=== PATIENT | female | born 2000 | race African-American/Black ===

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

== ENCOUNTER 2020-01-11 13:50 | Inpatient (IN) | payer MEDICAID, OTHER ==
[2020-01-11] VITALS (31 sets, daily range): BP systolic 81–114; BP diastolic 31–70
[~2020-01-11] VITALS: Ht 162.6 cm; Wt 52.8 kg
[2020-01-11] MEDS ORDERED: ETOMIDATE (2MG/ML) 20ML VIAL IV ONE ×2 (13:56→14:00)
[2020-01-11] MEDS ORDERED: MIDAZOLAM DRIP 50 mg/50mL 50 ML IV ONE (13:56)
[2020-01-11] MEDS ORDERED: SUCCINYLCHOLINE CHLORIDE 20 MG/ML 10ML VIAL IV ONE ×2 (13:56→14:00)
[2020-01-11] MEDS: MIDAZOLAM DRIP 50 mg/50mL 50 ML IV SCH ×2 (14:14→21:05)
[2020-01-11] MEDS ORDERED: SODIUM CHLORIDE 0.9% 2,000 ML IV ONE ×2 (14:15→15:45)
[2020-01-11] MEDS ORDERED: SODIUM CHLORIDE 0.9% 1,000 ML IV ONE ×2 (14:15→19:45)
[2020-01-11 14:19] LABS: White Blood Cell 15.7 10^3/uL (4.4-10.8)
[2020-01-11] MEDS ORDERED: SODIUM CHLORIDE 0.9% 1,000 ML IV SCH ×8 (14:19→20:44)
[2020-01-11] MEDS ORDERED: InsuLIN R (HUMAN) 100 UNITS in SODIUM CHL 0.9% 99 ML IV SCH ×3 (14:19→16:00)
[2020-01-11 14:21] LABS: Hematocrit 49.5 % (36.0-46.0); Mean Corpuscular Hemoglobin 31.8 pg (28.0-32.0); Mean Corpuscular Hgb Conc. 28.2 g/dL (32.0-36.0); Mean Corpuscular Volume 112.7 fL (80.0-100.0); Platelet Count (auto) 317 10^3/uL (140-450); Red Blood Cells 4.39 10^6/uL (4.0-5.20); Red Cell Distribution Width 16.5 % (11.8-14.3)
[2020-01-11 14:23] LABS: Band Neutrophils % (manual) 0; Basophils % (manual) 0 (0.0-2.0); Blast Cells 0; Eosinophils % (manual) 0 (0-7); Metamyelocytes % 0; Myelocytes % 0; Promyelocytes % 0; Reactive Lymphocytes 0
[2020-01-11 14:23] LABS: Urine WBC None Seen /hpf (0 - 5)
[2020-01-11 14:28] LABS: Urine Bacteria NONE SEEN /hpf (None Seen); Urine Blood Negative /uL (Negative); Urine Mucus FEW (None Seen); Urine Specific Gravity 1.019 (1.001-1.035)
[2020-01-11] MEDS ORDERED: DEXTROSE (50%) 50ML SYRG IV PRN ×2 (14:30→14:45)
[2020-01-11 14:39] LABS: Lymphocytes % (manual) 16 (10.0-50.0); Monocytes % (manual) 1 (0-12)
[2020-01-11 14:45] LABS: Albumin 3.4 g/dL (3.4-5.0); BUN/Creatinine Ratio 10.2; Calcium 7.8 mg/dL (8.5-10.1); Lactic Acid w/Reflex 3.1 mmol/L (0.4-2.0)
[2020-01-11] MEDS ORDERED: MORPHINE SULF INJ 2 MG/ML SYRINGE 1ML IV PRN (14:45)
[2020-01-11] MEDS ORDERED: INSULIN LANTUS (GLARGINE) 1 /0.01ml (100units/ml) SC ONE (14:45)
[2020-01-11] MEDS ORDERED: LACTATED RINGER'S 2,000 ML IV ONE (14:45)
[2020-01-11] MEDS ORDERED: NITROGLYCERIN 0.4 MG SL TAB SL PRN ×2 (14:45→15:00)
[2020-01-11 14:53] LABS: Bilirubin, Total 0.6 mg/dL (0.2-1.0); Total Protein 7.5 g/dL (6.4-8.2)
[2020-01-11] MEDS ORDERED: ACCU-CHEK COMFORT CURVE STRIP VI SCH (15:00)
[2020-01-11] MEDS ORDERED: LORazepam 0.5 MG TAB PO PRN (15:00)
[2020-01-11] MEDS ORDERED: ONDANSETRON HCL 4 MG/2 ML VIAL IV PRN (15:00)
[2020-01-11] MEDS ORDERED: levoFLOXacin 750MG 150 ML IV SCH (15:14)
[2020-01-11] MEDS ORDERED: NOREPINEPHRINE 8 MG/250ML KIT 250 ML IV ONE (15:42)
[2020-01-11] MEDS ORDERED: CEFTRIAXONE SODIUM 2 GM in D5W 5% 50 ML IV ONE (15:45)
[2020-01-11] MEDS ORDERED: SOD CHL 0.9%/ KCL 20MEQ 1,000 ML IV SCH (15:45)
[2020-01-11] MEDS ORDERED: PROPOFOL 100 ML IV ONE (15:53)
[2020-01-11] MEDS: ACCU-CHEK COMFORT CURVE STRIP VI SCH ×6 (15:54→22:30)
[2020-01-11] MEDS: NOREPINEPHRINE 8 MG/250ML KIT 250 ML IV SCH (15:54)
[2020-01-11] MEDS ORDERED: SODIUM BICARBONATE 8.4 % INJ 50ML VIAL IV ONE ×2 (16:00→19:45)
[2020-01-11] MEDS: PROPOFOL 100 ML IV SCH (16:34)
--- NOTE | 2020-01-11 16:45 | NUR ---
RECEIVED PATIENT Received patient into room 104, Patient sedated on Versed at 15mg and Diprivan at 5mcg. Patient has positive gag/cough reflex, pupils reactive to light, does not follow commands and does not withdrawal to pain. Sinus tachycardia in the high 130's on bedside monitor, pulses palpable on upper/lower extremities with no edema observed. NG tube checked and verified via air bolus: clamped. Abdomen soft, non tender and non distended with hernia to the umbilicus area. Last bowel movement unknown. Dietz catheter draining to gravity clear yellow urine. IV to the right wrist 22G and right IJ(TLC): good blood return and flushes easily infusing Insulin GTT at 6uits AND LR open wide as well as NS open wide. LOTS of medication from earlier in ER not given to patient. Skin intact. Will continue plan of care and call light within reach and bed at lowest position.
[2020-01-11] MEDS: SODIUM BICARBONATE 50ML VIAL 50 ML in D5W/SOD CHL 0.45% 1,000 ML IV SCH (17:13)
--- NOTE | 2020-01-11 17:50 | NUR ---
WOUND CARE NOTE: Wound care in to see patient per wound care request regarding Right inner wrist wound that are noted present on admission. Patient is 19 years old female with admitting diagnosis of Acute Hypoxemic Resp Failure, Septic Shock, Hypovolemic Shock, DKA. Patient is resting in ICU bed in Rm. 104. Patient is intubated, sedated and mechanically ventilated. Patient appears to be in no pain using [place] Faces Pain Scale. Noted patient's proximal Rt wrist has 2.8x2cm scabbed wound and open at wound edges. Wound is 80% covered with black scab, 20% red at edges, minimal serosanguineous drainage noted, no odor noted. Cleansed Rt. wrist wound with NS, patted dry with gauze, applied Thera honey gel and covered with Opti foam gentle dressing. Photograph of wound are taken for reference. No pressure injury noted. RECOMMENDATION: BID/PRN cleaning and application of Barrier cream to sacral/buttocks as preventative, EOD/PRN dressing change to Rt. wrist wound per MD order, frequent turning and repositioning schedule as condition permits, redistribute pressure points with pillows,continue monitoring by wound care while patient is mechanically ventilated. Addendum: 01/11/20 at 1816 by Claudia Garcia RN Amended: Links added.
--- NOTE | 2020-01-11 19:30 | NUR ---
HEART RATE 150 AND CLIMBING. SBP STABLE. SINUS TACHYCARDIA.
[2020-01-11] MEDS: METOPROLOL TARTRATE 1MG/1ML-5ML VIAL IV PRN (19:45)
[2020-01-11] MEDS ORDERED: SODIUM BICARBONATE 50ML VIAL 150 ML in D5W/SOD CHL 0.45% 1,000 ML IV SCH (19:45)
[2020-01-11] MEDS ORDERED: MIDAZOLAM HCL 5 MG/ML-1ML VIAL ONE (19:45)
--- NOTE | 2020-01-11 19:45 | NUR ---
CALLED DR HERNANDEZ IN ER. ORDERS RECEIVED. REVIEWED THE IVF. TEMP IS INCREASING. NOW 101.7 RECTALLY. HE RECEIVED THE ABG RESULTS JUST RESULTED. NOW: 3 AMPS OF NA BICARB IN ONE LITER AT 100CC/HR. BICARB WAS IN THE 5 RANGE. GIVING ONE LITER BOLUS OF NS TO THEN HAVE A TOTAL OF 5 SINCE ADMISSION. METOPROLOL GIVEN. ACCUCHECK DECREASING. SCALE RATE IS STILL 6 UNITS PER HOUR. NOT OVER BREATHING THE VENTILATOR.
--- NOTE | 2020-01-11 20:00 | NUR ---
ICE BAGS TO BACK OF NECK AND AXILLA. HEART RATE 148. LITER BOLUS ON PRESSURE BAG THROUGH CENTRAL LINE. BICARB DRIP 3 AMPS IN D5 1/2 AT 100CC/HR
[2020-01-11 20:09] LABS: BUN/Creatinine Ratio 12.6
[2020-01-11 20:09] LABS: Magnesium 2.1 mg/dL (1.6-2.6); Phosphorus 3.8 mg/dL (2.5-4.90)
[2020-01-11] MEDS ORDERED: VANCOMYCIN 1GM/250ML 250 ML IV ONE (20:15)
[2020-01-11] MEDS ORDERED: VANCOMYCIN PER PHARMACY 0 MG IV SCH (20:15)
[2020-01-11 20:16] LABS: Calcium 5.9 mg/dL (8.5-10.1)
--- NOTE | 2020-01-11 20:30 | NUR ---
SPOKE WITH DR SHAIKH. TYLENOL ORDER OBTAINED
--- NOTE | 2020-01-11 21:00 | NUR ---
NOTED NEW ANTIBIOTIC ORDERS FOR ONE TIME ZOSYN AND VANCOMYCIN
[2020-01-11] MEDS ORDERED: MAGNESIUM SULFATE 1GM/100ML 200 ML IV ONE (21:02)
[2020-01-11] MEDS: ACETAMINOPHEN 500 MG TAB PO PRN (21:04)
[2020-01-11] MEDS: MAGNESIUM SULFATE 1GM/100ML 100 ML IV SCH ×2 (21:06→22:00)
[2020-01-11] MEDS ORDERED: PIPERACILLIN-TAZO 4.5GM 100 ML IV ONE (21:30)
--- NOTE | 2020-01-11 22:00 | NUR ---
TYLENOL HAS NOT BROUGHT DOWN THE TEMPERATURE YET. 5 ICE BAGS: AXILLA, GROIN AND BACK OF NECK. SHEET OFF PATIENT. INCREASED THE PROPOFOL BECAUSE OF HER ARMS COMING UP BY THE ETT. FIO2 WAS DECREASED FROM 50 TO 40% AT 1929. O2 SAT HAS ALWAYS BEEN 100%. SBP STABLE. RARELY BREATHES ABOVE VENTILATOR. GOOD URINE OUTPUT. ONE TIME DOSES OF ZOSYN 4.5 AND VANCOMYCIN BEING GIVEN. MAGNESIUM REPLACEMENT STILL GOING. NO EDEMA. GUPPY BREATHING I NOTED AT 1929 HAS RESOLVED. SCDS PLACED. ONE PERIPHERAL IV RIGHT WRIST AREA.
--- NOTE | 2020-01-11 23:00 | NUR ---
REVIEWED [address] SHAIKH. NEW IV SOLUTION ORDERED WITH INCREASED KCL
[2020-01-12] VITALS (103 sets, daily range): BP systolic 95–128; BP diastolic 24–85
[2020-01-12] MEDS ORDERED: SOD CHL 0.45% 1,000 ML IV SCH
--- NOTE | 2020-01-12 | NUR ---
BMP SENT. SINUS TACHY 138. NO ECTOPY. BEGINNING TO MOVE A LOT. INCREASED THE PROPOFOL. TEMP 101.3. LUNGS CLEAR. NO NGT RESIDUAL. OWENS DRAINING CLEAR YELLOW LIQUID IN ADEQUATE AMOUNTS. EDWARDS. OPENS EYES A LITTLE. MITTENS ON BILATERALLY.
[2020-01-12] MEDS ORDERED: POTASSIUM CHL 20MEQ/100ML 200 ML IV ONE ×2 (00:10→01:20)
[2020-01-12] MEDS: ACCU-CHEK COMFORT CURVE STRIP VI SCH ×14 (00:21→23:55)
[2020-01-12] MEDS: MIDAZOLAM DRIP 50 mg/50mL 50 ML IV SCH ×4 (00:41→23:55)
[2020-01-12 01:05] LABS: BUN/Creatinine Ratio 11.8; Calcium 6.4 mg/dL (8.5-10.1)
[2020-01-12 01:12] LABS: Potassium 2.3 mmol/L (3.5-5.1)
[2020-01-12] MEDS: POTASSIUM CHL 20MEQ/100ML 100 ML IV SCH ×6 (01:29→21:59)
--- NOTE | 2020-01-12 02:00 | NUR ---
HAS BEEN RESTLESS. INCREASED THE PROPOFOL GRADUALLY. SINUS TACHYCARDIA IMPROVING. TEMP IMPROVING. ICE BAGS STILL ON PATIENT. LUNGS CLEAR. URINE PER OWENS TO DOWN DRAIN BAG. CLEAR, ADEQUATE AMOUNT IN OWENS. IV SITE SHOWS NO REDNESS OR SWELLING. ABDOMEN SOFT. NEXT BMP AT 0400. NO ECTOPY.
[2020-01-12] MEDS: METOPROLOL TARTRATE 1MG/1ML-5ML VIAL IV PRN (02:40)
--- NOTE | 2020-01-12 02:41 | NUR ---
prn metoprolol given
--- NOTE | 2020-01-12 03:00 | NUR ---
accucheck 157 insulin drip 1.5 units/hr
--- NOTE | 2020-01-12 03:40 | NUR ---
am labs drawn
--- NOTE | 2020-01-12 03:58 | NUR ---
PATIENT IS IMPROVING. HR 126. SINUS TACHYCARDIA. SBP STABLE. REMAINS OFF LEVOPHED. TEMP 100.6 WITH JUST ICE BAGS. LUNGS CLEAR. RIDING THE VENTILATOR MOST OF THE TIME. O2 SAT ALWAYS 100%. FIO2 30%. BOWEL SOUND QUIET. RIGHT NARE NGT CLAMPED. RESIDUAL ONLY 10CC OF COFFEE GROUND COLOR. ALL PULSES PALPABLE. PUPILS 2 AND SLUGGISH. EDWARDS OCCASIONALLY. BILATERAL MITTENS ON.
[2020-01-12 04:11] LABS: Basophils # (auto) 0.1 10 ^3/uL (0-0.2); Basophils % (auto) 0.8 % (0.0-2.0); Eosinophils # (auto) 0 10 ^3/uL (0-0.8); Eosinophils % (auto) 0.2 % (0.0-7.0); Hematocrit 33.5 % (36.0-46.0); Hemoglobin 11.8 g/dL (12.2-16.2); Lymphocytes # (auto) 1.1 10 ^3/uL (0.4-5.4); Lymphocytes % (auto) 13.2 % (10.0-50.0); Mean Corpuscular Hemoglobin 32.6 pg (28.0-32.0); Mean Corpuscular Hgb Conc. 35.2 g/dL (32.0-36.0); Mean Corpuscular Volume 92.8 fL (80.0-100.0); Monocytes # (auto) 0.6 10 ^3/uL (0-1.3); Monocytes % (auto) 7.2 % (0.0-12.0); Neutrophils # (auto) 6.6 10 ^3/uL (1.6-8.6); Neutrophils % (auto) 78.6 % (37.0-80.0); Nucleated Red Blood Cells % 0.1 %; Platelet Count (auto) 166 10^3/uL (140-450); Red Blood Cells 3.61 10^6/uL (4.0-5.20); White Blood Cell 8.4 10^3/uL (4.4-10.8)
[2020-01-12 04:28] LABS: Albumin 2.5 g/dL (3.4-5.0); Calcium 6.4 mg/dL (8.5-10.1); INR 1.18 (0.9-1.15); Magnesium 2.4 mg/dL (1.6-2.6); Partial Thromboplastin Time 21.4 sec (23.64-32.05)
[2020-01-12 04:37] LABS: % Iron Saturation 5.7 % (15-50)
[2020-01-12 04:45] LABS: BUN/Creatinine Ratio 9.9; Bilirubin, Total 0.3 mg/dL (0.2-1.0); CRP High Sensitivity 1.09 mg/dL (< 0.3); Total Protein 5.4 g/dL (6.4-8.2)
[2020-01-12 04:54] LABS: Potassium 2.8 mmol/L (3.5-5.1)
[2020-01-12] MEDS: SODIUM BICARBONATE 50ML VIAL 50 ML in D5W/SOD CHL 0.45% 1,000 ML IV SCH ×2 (05:00→12:56)
[2020-01-12] MEDS: PROPOFOL 100 ML IV SCH ×2 (05:00→19:44)
[2020-01-12] MEDS: PIPERACILLIN-TAZOB 3.375GM 100 ML IV SCH ×4 (05:43→23:49)
--- NOTE | 2020-01-12 06:00 | NUR ---
12 hour noc shift accuchecks 1929 380 6 units 2100 242 3 units 2230 238 2 units 2400 263 3 units 0130 197 2 units 0300 157 1.5 umits 0430 175 1.5 units 0600 144 1 unit
--- NOTE | 2020-01-12 06:43 | NUR ---
call placed to hospitalist to report potassium of 2.8
--- NOTE | 2020-01-12 06:46 | NUR ---
order received for potassium iv rider 40 meq
[2020-01-12] MEDS ORDERED: POTASSIUM CHLORIDE 40 MEQ in SOD CHL 0.45% 1,000 ML IV SCH ×2 (07:30→12:45)
[2020-01-12] MEDS: DOCUSATE SOD 100 MG CAP PO SCH (10:00)
[2020-01-12] MEDS ORDERED: INSULIN LANTUS (GLARGINE) 1 /0.01ml (100units/ml) SC SCH ×2 (10:00→22:00)
--- NOTE | 2020-01-12 10:05 | NUR ---
MD Dr. Hicks at bedside updated on patient condition with new orders per MD to wake patient up and place on CPAP trial for 30minutes if she does well to extubate, NO need for ABG. RT Angela aware. aware that patients POTASSIUM level this AM is 2.8 and covering once Potassium level is 3.5 or above will attempt to CPAP. MD agreed.
[2020-01-12] MEDS: PANTOPRAZOLE 40 MG/10 ML VIAL INJ IV SCH (10:41)
[2020-01-12] MEDS: ENOXAPARIN SOD 40 MG/0.4 ML SYRINGE SC SCH (10:42)
--- NOTE | 2020-01-12 10:54 | NUR ---
MD Dr. Gregorio hernadez, awating for to call back.
--- NOTE | 2020-01-12 11:48 | NUR ---
MD Dr. Vazquez called this RN back and received new orders: this RN to input into system. Turn off insulin GTT and ACCU-CHECKS Q 1 X 3hours then ACCU-CHECKS Q 4 on low dose sliding scale.
[2020-01-12] MEDS: ACETAMINOPHEN 500 MG TAB PO PRN (12:29)
[2020-01-12 12:46] LABS: BUN/Creatinine Ratio 6.5; Calcium 6.8 mg/dL (8.5-10.1); Magnesium 2.3 mg/dL (1.6-2.6)
[2020-01-12 12:49] LABS: Potassium 2.7 mmol/L (3.5-5.1)
--- NOTE | 2020-01-12 12:50 | NUR ---
CRITICAL LAB Received critical from Cindy MARTINEZ for a potassium of 2.7, Called and spoke to Dr. Vazquez with new orders for 50meq of potassium PO, EKG and redraw at 1600.
--- NOTE | 2020-01-12 12:50 | NUR ---
Nutrition Assessment Notes Please refer to link for full assessment notes. Est energy needs: 4643-8990 kcals (25-30 kcal/kgBW) Est protein needs: 63-78 gms/day (1.2-1.5 gm/kgBW) d/t respiratory distress Will continue to monitor and reassess prn. Addendum: 01/12/20 at [address] Amended: Links added.
[2020-01-12] MEDS ORDERED: ACETAMINOPHEN 500 MG TAB PO PRN (13:00)
[2020-01-12] MEDS ORDERED: POTASSIUM EFFERVESENT TAB 25 MEQ PO ONE (13:30)
--- NOTE | 2020-01-12 13:30 | NUR ---
BLOOD GLUCOSE Blood glucose 137.
[2020-01-12] MEDS ORDERED: ALBUTEROL SULF HFA 90MCG INH 200DOSE IN SCH (14:00)
--- NOTE | 2020-01-12 14:49 | NUR ---
BLOOD GLUCOSE Blood glucose 134.
[2020-01-12] MEDS: NOREPINEPHRINE 8 MG/250ML KIT 250 ML IV SCH (15:42)
[2020-01-12] MEDS ORDERED: DEXTROSE (50%) 50ML SYRG IV PRN (15:45)
[2020-01-12] MEDS: InsuLIN REG 1unit/0.01ml Soln (100units/ml) SC SCH ×2 (16:00→20:00)
[2020-01-12] MEDS: POTASSIUM CHLORIDE 40 MEQ in SOD CHL 0.45% 1,000 ML IV SCH (16:10)
--- NOTE | 2020-01-12 18:08 | NUR ---
RT NOTE RECEIVED PT INTUBATED AND ON VENT V19 ON STATED SETTINGS. VENT IS PLUGGED TO RED OUTLET. ALARMS ARE ON AND AUDIBLE AT NURSES STATION. AMBU BAG AT BEDSIDE AND CONNECTED TO O2 SOURCE. 7.5 ETT IS SECURED WITH ANCHORFAST AT 23 CM AT THE [facility]. BILATERAL BS ARE CTA. PT WAS SUCTIONED FOR SMALL SCANT CLEAR RETURN FROM ETT AND SMALL WHITE RETURN ORALLY. CONT ORDERED. POX 100% Addendum: 01/12/20 at 1844 by Shital Poon RT Amended: Links added.
--- NOTE | 2020-01-12 19:15 | NUR ---
HOSPITALIST Paged hospitalist for potassium of 3.1., awaiting for call back.
--- NOTE | 2020-01-12 19:30 | NUR ---
PAGED HOSPITALIST REGARDING LOW K AND POSITIVE BC
--- NOTE | 2020-01-12 19:40 | NUR ---
HOSPITALIST RETURNED CALL RECEIVED NEW ORDERS FOR LOW K
[2020-01-12] MEDS ORDERED: ACETAMINOPHEN 325 MG TAB PO PRN (19:45)
--- NOTE | 2020-01-12 20:00 | NUR ---
OPENING SHIFT RECEIVED REPORT FROM DAY SHIFT RN. ASSUMED CARE OF PATIENT. PATIENT INTUBATED AND SEDATED ON VENTILATOR, NO PAIN OR DISTRESS NOTED. 02 SAT - 100%. POSITIVE COUGH AND GAG. RIJ TLC. OWENS HUNG TO GRAVITY. SEDATION: VERSED AND PROPOFOL BED IN LOWEST POSITION, SIDE RAILS UP X2. WILL CONTINUE TO MONITOR.
--- NOTE | 2020-01-12 20:39 | NUR ---
RT NOTE ROUTINE VENT CHECK DONE. PT INTUBATED AND ON VENT V19 ON STATED SETTINGS. VENT IS PLUGGED TO RED OUTLET. ALARMS ARE ON AND AUDIBLE AT NURSES STATION. AMBU BAG AT BEDSIDE AND CONNECTED TO O2 SOURCE. 7.5 ETT IS SECURED WITH ANCHORFAST AT 23 CM AT THE [facility]. CONT ORDERED. PT TEMP 99.9,POX 100% Addendum: 01/12/20 at 2152 by Shital Poon RT Amended: Links added.
[2020-01-12] MEDS ORDERED: ALBUTEROL SULF 2.5 MG/0.5ML(0.5%) NEB SOLN NEB SCH (22:00)
[2020-01-12] MEDS ORDERED: VANCOMYCIN 1GM/250ML 250 ML IV SCH (22:00)
--- NOTE | 2020-01-12 22:23 | NUR ---
RT NOTE ROUTINE VENT CHECK DONE. PT INTUBATED AND ON VENT V19 ON STATED SETTINGS. VENT IS PLUGGED TO RED OUTLET. ALARMS ARE ON AND AUDIBLE AT NURSES STATION. AMBU BAG AT BEDSIDE AND CONNECTED TO O2 SOURCE. 7.5 ETT IS SECURED WITH ANCHORFAST AT 23 CM AT THE [facility]. CONT ORDERED. PT TEMP 99.0,POX 100% Addendum: 01/12/20 at 2314 by Shital Poon RT Amended: Links added.
[2020-01-13] VITALS (82 sets, daily range): BP systolic 94–146; BP diastolic 62–90
--- NOTE | 2020-01-13 00:16 | NUR ---
RT NOTE ROUTINE VENT CHECK DONE. PT INTUBATED AND ON VENT V19 ON STATED SETTINGS. VENT IS PLUGGED TO RED OUTLET. ALARMS ARE ON AND AUDIBLE AT NURSES STATION. AMBU BAG AT BEDSIDE AND CONNECTED TO O2 SOURCE. 7.5 ETT IS SECURED WITH ANCHORFAST AT 23 CM AT THE [facility]. PT WAS SUCTIONED FOR SCANT RETURN. CONT ORDERED. PT TEMP 99.0,POX 100% Addendum: 01/13/20 at 0130 by Shital Poon RT Amended: Links added.
[2020-01-13] MEDS: InsuLIN REG 1unit/0.01ml Soln (100units/ml) SC SCH ×5 (00:17→18:00)
[2020-01-13] MEDS: POTASSIUM CHLORIDE 40 MEQ in SOD CHL 0.45% 1,000 ML IV SCH ×3 (02:07→22:45)
--- NOTE | 2020-01-13 02:23 | NUR ---
RT NOTE ROUTINE VENT CHECK DONE. PT INTUBATED AND ON VENT V19 ON STATED SETTINGS. VENT IS PLUGGED TO RED OUTLET. ALARMS ARE ON AND AUDIBLE AT NURSES STATION. AMBU BAG AT BEDSIDE AND CONNECTED TO O2 SOURCE. 7.5 ETT IS SECURED WITH ANCHORFAST AT 23 CM AT THE [facility]. PT WAS SUCTIONED FOR SCANT RETURN. CONT ORDERED. PT TEMP 99.3,POX 100% Addendum: 01/13/20 at 0237 by Shital Poon RT Amended: Links added.
--- NOTE | 2020-01-13 03:30 | NUR ---
PT RECEIVED BATH AND LINEN CHANGE
[2020-01-13 03:58] LABS: Basophils # (auto) 0.1 10 ^3/uL (0-0.2); Basophils % (auto) 1.4 % (0.0-2.0); Eosinophils # (auto) 0.1 10 ^3/uL (0-0.8); Eosinophils % (auto) 2.1 % (0.0-7.0); Hematocrit 28.1 % (36.0-46.0); Hemoglobin 9.9 g/dL (12.2-16.2); Lymphocytes # (auto) 1.4 10 ^3/uL (0.4-5.4); Lymphocytes % (auto) 24.3 % (10.0-50.0); Mean Corpuscular Hemoglobin 32.7 pg (28.0-32.0); Mean Corpuscular Hgb Conc. 35.2 g/dL (32.0-36.0); Monocytes # (auto) 0.4 10 ^3/uL (0-1.3); Monocytes % (auto) 7.6 % (0.0-12.0); Neutrophils # (auto) 3.8 10 ^3/uL (1.6-8.6); Neutrophils % (auto) 64.6 % (37.0-80.0); Nucleated Red Blood Cells % 0.1 %; Platelet Count (auto) 118 10^3/uL (140-450); Red Blood Cells 3.02 10^6/uL (4.0-5.20); Red Cell Distribution Width 15.3 % (11.8-14.3); White Blood Cell 5.8 10^3/uL (4.4-10.8)
--- NOTE | 2020-01-13 04:03 | NUR ---
RT NOTE ROUTINE VENT CHECK DONE. PT INTUBATED AND ON VENT V19 ON STATED SETTINGS. VENT IS PLUGGED TO RED OUTLET. ALARMS ARE ON AND AUDIBLE AT NURSES STATION. AMBU BAG AT BEDSIDE AND CONNECTED TO O2 SOURCE. 7.5 ETT IS SECURED WITH ANCHORFAST AT 23 CM AT THE ORAL LEFT. PT WAS SUCTIONED FOR SCANT RETURN. HME AND INLINE SUCTION CHANGED WITHOUT INCIDENT. CONT ORDERED. PT TEMP 98.2, POX 100% Addendum: 01/13/20 at 0437 by Shital Poon RT Amended: Links added.
[2020-01-13] MEDS: ACCU-CHEK COMFORT CURVE STRIP VI SCH ×4 (04:09→18:00)
[2020-01-13 04:18] LABS: Albumin 2.2 g/dL (3.4-5.0); Calcium 7.2 mg/dL (8.5-10.1); Magnesium 2.1 mg/dL (1.6-2.6)
[2020-01-13 04:33] LABS: Bilirubin, Total 0.4 mg/dL (0.2-1.0)
[2020-01-13 04:48] LABS: Potassium 2.5 mmol/L (3.5-5.1)
[2020-01-13] MEDS: PROPOFOL 100 ML IV SCH (05:02)
[2020-01-13] MEDS: POTASSIUM CHL 20MEQ/100ML 100 ML IV SCH ×2 (05:40→08:03)
[2020-01-13] MEDS: PIPERACILLIN-TAZOB 3.375GM 100 ML IV SCH ×3 (05:41→18:00)
[2020-01-13] MEDS: MIDAZOLAM DRIP 50 mg/50mL 50 ML IV SCH (06:15)
[2020-01-13 06:42] LABS: BUN/Creatinine Ratio 4.8
--- NOTE | 2020-01-13 07:15 | NUR ---
BLOOD PRESSURE Blood pressure not taken at this time secondary to RT FRANK at bedside to obtain ABG.
--- NOTE | 2020-01-13 07:34 | NUR ---
AFSHAN WILLIAMSON REGARDING LAB VALUES LOW NA AND K Addendum: 01/13/20 at 0743 by ASHLEIGH SMALLWOOD RN RN WRONG PT
--- NOTE | 2020-01-13 07:50 | NUR ---
Received phone call from Dr. Hicks stating " would like to CPAP patient this AM." Informed MD that patients POTASSIUM level is 2.5 at this time. states " Cover POTASSIUM she does not need to be ventilated for that."
--- NOTE | 2020-01-13 08:35 | NUR ---
ECHO pharmacy technician inpatient at bedside to obtain study.
[2020-01-13] MEDS: DOCUSATE SOD 100 MG CAP PO SCH (09:48)
[2020-01-13] MEDS: PANTOPRAZOLE 40 MG/10 ML VIAL INJ IV SCH (09:52)
[2020-01-13] MEDS: ENOXAPARIN SOD 40 MG/0.4 ML SYRINGE SC SCH (09:52)
[2020-01-13] MEDS ORDERED: CHOLECALCIFEROL (VITD3) 1,000IU=25mCg TAB PO SCH (10:00)
[2020-01-13] MEDS ORDERED: POTASSIUM EFFERVESENT TAB 25 MEQ GT ONE (10:00)
[2020-01-13] MEDS ORDERED: AZITHROMYCIN 500 MG TAB PO SCH (10:00)
[2020-01-13] MEDS ORDERED: ASCORBIC ACID 1,000 MG TAB PO SCH (10:00)
[2020-01-13] MEDS ORDERED: ZINC SULFATE 220mg CAP or TAB PO SCH (10:00)
--- NOTE | 2020-01-13 10:00 | NUR ---
Received phone call from Dr. Vazquez regarding POTASSIUM level: received new orders, this RN to input into system.
[2020-01-13] MEDS ORDERED: PANTOPRAZOLE 40 MG/10 ML VIAL INJ IV ONE (10:15)
--- NOTE | 2020-01-13 10:20 | NUR ---
ELIMINATION Patient had a moderate amount of loose dark brown stool. Edda- area clean with the assistance of CCT Nitza. Patient toelrated well. Will continue to monitor closely.
--- NOTE | 2020-01-13 10:20 | NUR ---
MD Dr. Hicks at bedside updated on patient condition with no new orders other than to CPAP patient once she is awake and following commands.
--- NOTE | 2020-01-13 11:15 | NUR ---
MD Dr. Vazquez at bedside updated on patient condition with no new orders.
[2020-01-13 11:56] LABS: Hepatitis B Surface Antibody Negative
--- NOTE | 2020-01-13 12:20 | NUR ---
ULTRASOUND installer technician at bedside to obtain study.
[2020-01-13 12:34] LABS: Hepatitis A Total Antibody Positive
[2020-01-13 13:06] LABS: Hepatitis B Core Total AB Negative; Hepatitis B Surface Antigen Negative (Negative); Hepatitis C Antibody Negative (Negative)
[2020-01-13] MEDS ORDERED: DEXTROSE (50%) 50ML SYRG IV PRN (14:00)
--- NOTE | 2020-01-13 14:20 | NUR ---
Patient extubated by RT Extubation order received by Dr. LEÓN, RT at bedside. Patient extubated with no problems, patient tolerated well. Patient placed on 40% cool mist mask. Sats prior to extubation 100%, following extubation 100%. Continue to monitor.
--- NOTE | 2020-01-13 14:20 | NUR ---
RESPIRATORY RT FRANK extubated patient per Dr. Hicks orders whom saw the patient on CPAP. MD stated " to just pull the ET tube."
--- NOTE | 2020-01-13 20:52 | NUR ---
pt transfered from icu bed 104 to tele room 292A transferred by bed on tele monitor with gina MARTINEZ at the site pt belongings with pt, pt on room air, ST 116
--- NOTE | 2020-01-13 21:15 | NUR ---
Telemetry transfer from ICU AVERY JOSE transferred to Telemetry unit after SBAR received. Assumed care of patient. Patient is awake and alert. No S/S of distress/SOB or pain. Patient oriented to primary RN, unit, room, bed, and unit policies regarding patient care and visiting hours. Patient now on continuous telemetry monitoring, tele box #68. Patient weighed by bedscale and encouraged to call if they need something. All questions and concerns addressed, patient verbalized understanding. Dietz intact, patent, draining to gravity and below level of bladder. Right IJ in place and patent. Bed locked in lowest position and bed rails up x2. Call light within reach.
--- NOTE | 2020-01-13 21:20 | NUR ---
BRIEF WRITER made me aware during patient exchange that 1400 ml of urine output was just emptied before transport to Tele floor. Will continue to monitor for any changes and note drainage.
[2020-01-13] MEDS ORDERED: INSULIN LANTUS (GLARGINE) 1 /0.01ml (100units/ml) SC SCH (22:00)
[2020-01-14] MEDS: ACCU-CHEK COMFORT CURVE STRIP VI SCH ×4 (01:50→17:36)
[2020-01-14] MEDS: InsuLIN REG 1unit/0.01ml Soln (100units/ml) SC SCH ×4 (01:51→17:49)
[2020-01-14] MEDS: PIPERACILLIN-TAZOB 3.375GM 100 ML IV SCH ×4 (01:51→17:48)
[2020-01-14 05:21] VITALS: BP 100/64
[2020-01-14 06:27] LABS: Albumin 2.5 g/dL (3.4-5.0); Calcium 8.1 mg/dL (8.5-10.1); Potassium 3.1 mmol/L (3.5-5.1)
[2020-01-14 06:45] LABS: Bilirubin, Total 0.5 mg/dL (0.2-1.0); Total Protein 5.9 g/dL (6.4-8.2)
--- NOTE | 2020-01-14 06:49 | NUR ---
3450ml of urine output for entire shift drained from Dietz. Will endorse care to day shift, RN
[2020-01-14 06:55] LABS: BUN/Creatinine Ratio 7.4
--- NOTE | 2020-01-14 07:52 | NUR ---
Opening Note Assumed pt care from NOC RN. Pt is a/ox4 with no s/s of distress or SOB. Pt is currently sitting upright in bed eating breakfast with mild c/o soreness to throat; encouraged pt to increase in warm fluids. Discussed POC with pt; pt verbalized understanding. Dietz is present, free of kinks and draining to gravity. Safety measures maintained with call light within reach, bed in lowest position and side rails up. Will continue to monitor for changes.
[2020-01-14] MEDS: PANTOPRAZOLE 40 MG/10 ML VIAL INJ IV SCH (08:57)
[2020-01-14] MEDS: ENOXAPARIN SOD 40 MG/0.4 ML SYRINGE SC SCH (08:57)
[2020-01-14] MEDS: DOCUSATE SOD 100 MG CAP PO SCH (09:00)
[2020-01-14 09:53] VITALS: BP 118/75
[2020-01-14] MEDS: POTASSIUM CHLORIDE 40 MEQ in SOD CHL 0.45% 1,000 ML IV SCH (11:25)
--- NOTE | 2020-01-14 12:06 | NUR ---
UA Sent for Drug Screen
[2020-01-14 12:35] LABS: Alcohol, Urine < 3.0 mg/dL (0-5); Amphetamine Screen, Urine NEGATIVE (NEGATIVE); Barbiturate Scree,Urine NEGATIVE (NEGATIVE); Benzodiazephine Screen, Urine POSITIVE (NEGATIVE); Cannabinoid Screen, Urine NEGATIVE (NEGATIVE); Cocaine Screen, Urine NEGATIVE (NEGATIVE); Opiate Scree,Urine NEGATIVE (NEGATIVE); Phencyclidine Screen, Urine NEGATIVE (NEGATIVE)
[2020-01-14 13:00] VITALS: BP 116/74
--- NOTE | 2020-01-14 13:42 | NUR ---
ambulation Pt able to ambulate to bedside commode without difficulty. Will continue to monitor.
--- NOTE | 2020-01-14 14:15 | NUR ---
Dr Vazquez at Bedside MD to see pt. MD requests that KRYSTAL and dahlia be d/c'ed. Will implement and continue to monitor.
[2020-01-14] MEDS ORDERED: POTASSIUM CHL 20 Meq TABLET PO ONE (15:00)
--- NOTE | 2020-01-14 15:11 | NUR ---
Dietz Catheter Removed Dietz removed. 1450mL drained from catheter. Pt instructed to call when need to void. Will continue to monitor. Addendum: 01/14/20 at 1849 by ADELA CADENA RN RN Pt has since voided since removal of catheter.
[2020-01-14] MEDS ORDERED: LINEZOLID 600MG/300ML 300 ML IV SCH (15:15)
[2020-01-14] MEDS ORDERED: IOHEXOL 350 MG/ML 100ML IJ ONE (16:23)
--- NOTE | 2020-01-14 16:36 | NUR ---
IV Insertion 22G to pt's L wrist inserted. 3 attempts made. Clean/sterile technique used. Pt tolerated insertion well. Will keep IJ in at this time for scheduled CT chest. Notified radiology staff.
[2020-01-14 16:52] VITALS: BP 119/75
--- NOTE | 2020-01-14 18:04 | NUR ---
Critical Results Dr Hernandez from radiology group notified me that pt's tested positive for small PE in pt's R lower lobe. Will page hospitalist with findings.
--- NOTE | 2020-01-14 18:06 | NUR ---
John CHÁVEZ with Critical Report Addendum: 01/14/20 at 1832 by ADELA CADENA RN RN Dr Didier hernadez back. aware and stated he would place orders on pt. Will implement.
--- NOTE | 2020-01-14 19:30 | NUR ---
Opening Shift Note Assumed care of patient. Patient is awake and alert. No S/S of distress/SOB or pain. Instructed on POC and to call for assist PRN, will continue to monitor for changes Q1hr and PRN. Bed locked in lowest position and bed rails up x2. Call light within reach.
--- NOTE | 2020-01-14 20:35 | NUR ---
Patient of unit to smoke Addendum: 01/14/20 at 2051 by SUZANNE RIVERO RN Wrong patient
[2020-01-14] MEDS: APIXABAN 5 MG TAB PO SCH (21:56)
[2020-01-14] MEDS: LINEZOLID 600MG/300ML 300 ML IV SCH (21:56)
[2020-01-14 22:00] VITALS: BP 104/69
[2020-01-14] MEDS: INSULIN LANTUS (GLARGINE) 1 /0.01ml (100units/ml) SC SCH (22:17)
--- NOTE | 2020-01-14 23:00 | NUR ---
IJ removal IJ DC'd with clean sterile technique, catheter fully intact. Pressure dressing applied to site. Patient tolerated well. Will continue to monitor for changes.
[2020-01-15] MEDS: POTASSIUM CHLORIDE 40 MEQ in SOD CHL 0.45% 1,000 ML IV SCH ×2 (00:15→12:52)
[2020-01-15] MEDS: ACCU-CHEK COMFORT CURVE STRIP VI SCH ×4 (01:43→17:23)
[2020-01-15] MEDS: PIPERACILLIN-TAZOB 3.375GM 100 ML IV SCH ×4 (01:43→17:28)
[2020-01-15] MEDS: InsuLIN REG 1unit/0.01ml Soln (100units/ml) SC SCH ×5 (01:45→22:11)
[2020-01-15 05:00] VITALS: BP 101/60
[2020-01-15 06:06] LABS: Basophils # (auto) 0 10 ^3/uL (0-0.2); Basophils % (auto) 0.9 % (0.0-2.0); Eosinophils # (auto) 0.1 10 ^3/uL (0-0.8); Eosinophils % (auto) 2.1 % (0.0-7.0); Hematocrit 30.8 % (36.0-46.0); Hemoglobin 10.6 g/dL (12.2-16.2); Lymphocytes # (auto) 1.9 10 ^3/uL (0.4-5.4); Lymphocytes % (auto) 36.3 % (10.0-50.0); Mean Corpuscular Hemoglobin 32.5 pg (28.0-32.0); Mean Corpuscular Hgb Conc. 34.3 g/dL (32.0-36.0); Mean Corpuscular Volume 94.7 fL (80.0-100.0); Monocytes # (auto) 0.4 10 ^3/uL (0-1.3); Monocytes % (auto) 8.3 % (0.0-12.0); Neutrophils # (auto) 2.7 10 ^3/uL (1.6-8.6); Neutrophils % (auto) 52.4 % (37.0-80.0); Nucleated Red Blood Cells % 0.1 %; Platelet Count (auto) 141 10^3/uL (140-450); Red Blood Cells 3.26 10^6/uL (4.0-5.20); Red Cell Distribution Width 15.2 % (11.8-14.3); White Blood Cell 5.2 10^3/uL (4.4-10.8)
[2020-01-15 06:23] LABS: Potassium 3.9 mmol/L (3.5-5.1)
[2020-01-15 06:34] LABS: Albumin 2.3 g/dL (3.4-5.0); BUN/Creatinine Ratio 15.9; Bilirubin, Total 0.5 mg/dL (0.2-1.0); Calcium 8.5 mg/dL (8.5-10.1); Magnesium 2.3 mg/dL (1.6-2.6); Total Protein 5.9 g/dL (6.4-8.2)
--- NOTE | 2020-01-15 07:28 | NUR ---
Opening Note Assumed pt care from NOC RN. Pt is a/ox4 with no s/s of distress or SOB. Pt is currently sitting upright in bed with no complaints at this time. Discussed POC with pt; pt verbalized understanding. Safety measures maintained with call light within reach, bed in lowest position and side rails up. Will continue to monitor for changes.
[2020-01-15 09:00] VITALS: BP 99/66
[2020-01-15] MEDS: PANTOPRAZOLE 40 MG/10 ML VIAL INJ IV SCH (09:07)
[2020-01-15] MEDS: APIXABAN 5 MG TAB PO SCH ×2 (09:07→20:55)
[2020-01-15] MEDS: DOCUSATE SOD 100 MG CAP PO SCH (09:07)
[2020-01-15] MEDS: LINEZOLID 600MG/300ML 300 ML IV SCH (09:07)
--- NOTE | 2020-01-15 11:46 | NUR ---
Wound Care Complete Dressing change to pt's R FA. Pt tolerated change well.
[2020-01-15 12:51] VITALS: BP 109/71
--- NOTE | 2020-01-15 14:08 | NUR ---
Dr Murphy at Bedside MD to see pt. New orders given. Will continue to monitor.
--- NOTE | 2020-01-15 15:03 | NUR ---
Nutrition Followup Notes Pt wt is 52.8 kg Pt was awake, weak, lethargic when rounded this morning. Pt is on a CCHO 60g diet, appetite is fair aeb 50% x2 PO intake per data support analyst. Educated pt on diet, importance of dietary compliance. She said she was not interested in taking classes, but was left with class schedule in case she changed her mind. Encouraged pt to eat more, educate herself and follow the appropriate dietary pattern. Will continue to monitor PO status, skin status, pertinent labs and weight trends. Will f/u in 3 to 5 days. Est energy needs: 8421-9101 kcals (25-30 kcal/kgBW) Est protein needs: 63-78 gms/day (1.2-1.5 gm/kgBW) d/t respiratory distress Will continue to monitor and reassess prn. LABS: GLUC 280 H, A1c 12.7 H, AST 254 H, ALT 275 H, TP 5.9 L, ALB 2.3 L GI: Last BM noted on 01/15/20 per data support analyst BS: 21 low risk, scab on wrist. Please refer to wound assessment report for full details. PES: Problem 1) Increased nutrient needs r/t pt with 0% PO intake aeb pt sedated, intubated on mechanical vent, NPO 2) Inadequate oral intake r/t dietary non-compliance aeb hyperglycemia, elev A1c, dyslipidemia, hypoproteinemia, hypoalbuminemia 3) Altered nutrition related lab values r/t current/chronic medical condition aeb hyperglycemia, elev A1c, dyslipidemia, hypoproteinemia, hypoalbuminemia, elev LFTs, iron deficiency Comments Will continue to closely monitor pertinent labs, PO intake and skin status prn. Will followup in 2-3 days 1) Continue to closely monitor pt NPO status (RESOLVED) 2) If pt remains NPO for the next 72 hours, consider EN nutrition support of Glucerna 1.2 @ 40ml/hr goal rate with current running propofol rate @ 12.669 ml/hr. If pt is off propofol, consider Glucerna 1.2 @ 50ml/hr goal rate. (RESOLVED) 3) Gradually advance pt to oral CCHO 45g diet when medically feasible and as tolerated 4) Refer pt to RD/CDE for nutrition education upon D/C 5) If albumin continues trending down consider Prostat 1 pkt BID 6) Continue current plan of care
[2020-01-15] MEDS: INSULIN LANTUS (GLARGINE) 1 /0.01ml (100units/ml) SC SCH (21:28)
[2020-01-15 22:07] VITALS: BP 121/72
[2020-01-16] MEDS: ACCU-CHEK COMFORT CURVE STRIP VI SCH ×5 (00:11→23:36)
[2020-01-16] MEDS: PIPERACILLIN-TAZOB 3.375GM 100 ML IV SCH ×5 (00:11→23:36)
[2020-01-16 05:00] VITALS: BP 108/61
[2020-01-16] MEDS: InsuLIN REG 1unit/0.01ml Soln (100units/ml) SC SCH ×4 (05:57→21:47)
--- NOTE | 2020-01-16 07:30 | NUR ---
Opening Shift Note RECEIVED REPORT FROM NOC RN. Assumed care of patient, awake and alert. No S/S of distress/SOB or pain. BED IN LOWEST, LOCKED POSITION WITH SIDERAILS UP x2 AND CALL LIGHT WITHIN REACH. Instructed on POC and to call for assist PRN, will continue to monitor for changes Q1hr and PRN.
[2020-01-16 09:00] VITALS: BP 100/66
[2020-01-16] MEDS: APIXABAN 5 MG TAB PO SCH ×2 (09:54→21:32)
[2020-01-16] MEDS: DOCUSATE SOD 100 MG CAP PO SCH (09:54)
[2020-01-16] MEDS: FAMOTIDINE 20 MG TAB PO SCH (09:54)
[2020-01-16 13:00] VITALS: BP 104/66
[2020-01-16 16:30] VITALS: BP 103/67
[2020-01-16] MEDS: Glucerna Carbsteady SHAKE Vanilla 8oz PO SCH (18:09)
[2020-01-16] MEDS: INSULIN LANTUS (GLARGINE) 1 /0.01ml (100units/ml) SC SCH (21:45)
[2020-01-16 22:00] VITALS: BP 109/68
[2020-01-17 05:10] VITALS: BP 97/57
[2020-01-17 05:45] LABS: Basophils # (auto) 0 10 ^3/uL (0-0.2); Eosinophils # (auto) 0.1 10 ^3/uL (0-0.8); Eosinophils % (auto) 2.1 % (0.0-7.0); Hematocrit 32.5 % (36.0-46.0); Lymphocytes # (auto) 2.3 10 ^3/uL (0.4-5.4); Lymphocytes % (auto) 51.4 % (10.0-50.0); Mean Corpuscular Hemoglobin 31.9 pg (28.0-32.0); Mean Corpuscular Hgb Conc. 33.8 g/dL (32.0-36.0); Mean Corpuscular Volume 94.2 fL (80.0-100.0); Monocytes # (auto) 0.7 10 ^3/uL (0-1.3); Monocytes % (auto) 14.6 % (0.0-12.0); Neutrophils # (auto) 1.4 10 ^3/uL (1.6-8.6); Neutrophils % (auto) 30.9 % (37.0-80.0); Nucleated Red Blood Cells % 0.2 %; Platelet Count (auto) 260 10^3/uL (140-450); Red Blood Cells 3.44 10^6/uL (4.0-5.20); Red Cell Distribution Width 14.8 % (11.8-14.3); White Blood Cell 4.5 10^3/uL (4.4-10.8)
[2020-01-17] MEDS: PIPERACILLIN-TAZOB 3.375GM 100 ML IV SCH ×2 (05:47→13:27)
[2020-01-17] MEDS: ACCU-CHEK COMFORT CURVE STRIP VI SCH ×4 (05:49→21:16)
[2020-01-17 06:03] LABS: BUN/Creatinine Ratio 24.6; Calcium 8.5 mg/dL (8.5-10.1); Potassium 3.4 mmol/L (3.5-5.1)
[2020-01-17] MEDS: InsuLIN REG 1unit/0.01ml Soln (100units/ml) SC SCH ×4 (06:03→22:26)
[2020-01-17] MEDS: Glucerna Carbsteady SHAKE Vanilla 8oz PO SCH ×3 (08:26→17:36)
[2020-01-17] MEDS ORDERED: POTASSIUM CHL 20 Meq TABLET PO ONE ×2 (08:45→14:30)
[2020-01-17 08:52] VITALS: BP 103/65
[2020-01-17] MEDS: DOCUSATE SOD 100 MG CAP PO SCH (09:37)
[2020-01-17] MEDS: APIXABAN 5 MG TAB PO SCH ×2 (09:37→21:07)
[2020-01-17] MEDS: FAMOTIDINE 20 MG TAB PO SCH (09:37)
--- NOTE | 2020-01-17 10:27 | NUR ---
WOUND CARE NOTE: Wound care in to see patient for reevaluation of wound and skin integrity monitoring. Patient has been extubated and now in [place] [facility]/ telemetry unit. Patient is resting in bed in Rm. 292A. Patient's eyes are closed, respond to verbal and tactile stimuli. Patient is in no stated pain at this time. She's self turning and repositioning and her Jono score is 21. Patient's medial Rt forearm/proximal Rt wrist wound looks improving with clean, red wound bed. Wound measuring 2 x1cm no measurable depth. Wound bed is 100% red granulation tissue, elei wound is pink, scant serosanguineous drainage noted, no odor noted. Cleansed Rt. wrist wound with NS, patted dry with gauze, applied Thera honey gel and covered with Opti foam gentle dressing. New photograph of wound are taken for reference. No pressure injury noted. Patient tolerated well. Bed in low position, call waite within reach, all safety precautions in placed. RECOMMENDATION: Change dressing frequency of Rt. wrist wound from EOD/PRN to Q3Days/PRN per MD order as wound now has clean, red wound bed, continuation of all other wound care orders prescribed by MD,continue with skin/wound plan of care, continue monitoring by wound care while patient is hospitalized. Addendum: 01/17/20 at 1559 by Claudia Garcia RN Amended: Links added.
[2020-01-17] MEDS ORDERED: IOHEXOL 350 MG/ML 100ML IJ ONE (12:33)
--- NOTE | 2020-01-17 13:04 | NUR ---
ADVISED BY RADIOLOGIST THAT PATIENT HAS PEs IN BOTH LUNGS. DR. SHAIKH CAVANAUGH.
--- NOTE | 2020-01-17 13:10 | NUR ---
SPOKE WITH DR. WOLFE. ADVISED OF CTA CHEST RESULTS.
[2020-01-17 13:50] VITALS: BP 99/55
[2020-01-17] MEDS ORDERED: DOXYCYCLINE 100 MG TAB/CAP PO ONE (14:30)
[2020-01-17] MEDS ORDERED: PANTOPRAZOLE 40 MG TAB PO ONE (14:30)
[2020-01-17] MEDS: SODIUM CHLORIDE 0.9% 1,000 ML IV SCH (15:20)
[2020-01-17 16:54] VITALS: BP 105/57
--- NOTE | 2020-01-17 18:17 | NUR ---
PATIENT ADVISED THAT SHE DOES NOT CARE FOR HER DINNER TRAY. CALLED DIETARY AND THEY ADVISED THEY WOULD SEND UP AN ALTERNATE MEAL.
[2020-01-17] MEDS: DOXYCYCLINE 100 MG TAB/CAP PO SCH (21:07)
[2020-01-17] MEDS: PANTOPRAZOLE 40 MG TAB PO SCH (21:08)
[2020-01-17] MEDS: INSULIN LANTUS (GLARGINE) 1 /0.01ml (100units/ml) SC SCH (21:16)
[2020-01-17 22:00] VITALS: BP 99/63
[2020-01-18] MEDS: SODIUM CHLORIDE 0.9% 1,000 ML IV SCH ×2 (03:36→17:10)
[2020-01-18 05:00] VITALS: BP 92/56
[2020-01-18] MEDS: InsuLIN REG 1unit/0.01ml Soln (100units/ml) SC SCH ×3 (05:34→18:11)
[2020-01-18] MEDS: ACCU-CHEK COMFORT CURVE STRIP VI SCH ×3 (05:35→18:08)
[2020-01-18 07:22] LABS: Albumin 2.2 g/dL (3.4-5.0); Anion Gap 6 (5-15); Bilirubin, Direct < 0.1 mg/dL (0-0.2); Blood Urea Nitrogen 13 mg/dL (7-18); Calcium 8.3 mg/dL (8.5-10.1); Carbon Dioxide 26 mmol/L (21-32); Chloride 110 mmol/L (98-107); Glucose 186 mg/dL (74-106); Magnesium 2.2 mg/dL (1.6-2.6); Potassium 3.8 mmol/L (3.5-5.1); Sodium 142 mmol/L (136-145)
[2020-01-18 07:24] LABS: Alanine Aminotransferase 86 U/L (13-56); Alkaline Phosphatase 83 U/L (45-117); Aspartate Aminotransferase 28 U/L (15-37); BUN/Creatinine Ratio 22.4; Bilirubin, Total 0.2 mg/dL (0.2-1.0); GFR African American 172 mL/min; GFR Non-African American 142 mL/min; Total Protein 5.6 g/dL (6.4-8.2)
--- NOTE | 2020-01-18 07:45 | NUR ---
Opening Shift Note Assumed care of patient, awake and alert. No S/S of distress/SOB or pain. Instructed on POC and to call for assist PRN, will continue to monitor for changes Q1hr and PRN.
[2020-01-18 08:00] VITALS: BP 104/66
[2020-01-18] MEDS: Glucerna Carbsteady SHAKE Vanilla 8oz PO SCH ×3 (08:00→18:12)
[2020-01-18] MEDS: APIXABAN 5 MG TAB PO SCH ×2 (09:27→19:58)
[2020-01-18] MEDS: DOCUSATE SOD 100 MG CAP PO SCH (09:27)
[2020-01-18] MEDS: PANTOPRAZOLE 40 MG TAB PO SCH (09:27)
[2020-01-18] MEDS: DOXYCYCLINE 100 MG TAB/CAP PO SCH (09:28)
[2020-01-18] MEDS ORDERED: PANTOPRAZOLE 40 MG TAB PO SCH (10:00)
[2020-01-18 12:00] VITALS: BP 103/55
--- NOTE | 2020-01-18 13:00 | NUR ---
PER DR WOLFE, DISCHARGE PT HOME AFTER SHE'S SEEN BY DR LEÓN TODAY.
[2020-01-18] MEDS ORDERED: APIX5TAB PO (13:19)
[2020-01-18] MEDS ORDERED: PANT40TA2 PO (13:19)
[2020-01-18] MEDS ORDERED: DOX100T PO (13:19)
--- NOTE | 2020-01-18 15:35 | NUR ---
FACE SHEET FAXED TO [facility]. PER DR WOLFE, SHE WANTS THE PT'S ELIQUIS FILLED IN AT [facility] BEFORE SHE LEAVES. SPOKE TO [facility] REP.
[2020-01-18 16:44] VITALS: BP 102/64
--- NOTE | 2020-01-18 17:29 | NUR ---
STILL WAITING FOR DR LEÓN. Addendum: 01/18/20 at 1734 by Sintia Diaz RN PER PIERCING ARTIST, TIANNA, SHE LEFT A VOICEMAIL ON DR LEÓN'S ANSWERING SERVICE.
[2020-01-18 18:58] VITALS: BP 108/67
--- NOTE | 2020-01-18 19:00 | NUR ---
DR LEÓN AT BEDSIDE.
--- NOTE | 2020-01-18 19:15 | NUR ---
PER PT, DR LEÓN INFORMED HER THAT SHE CAN GO BUT THAT SHE HAS TO HAVE HER ELIQUIS PRESCRIPTIONS WITH HER. BUT [facility] DID NOT BRING UP THE MEDICATION. I WAS UNABLE TO GET A HOLD OF THEM SINCE THEY'RE NOW CLOSED.
--- NOTE | 2020-01-18 19:30 | NUR ---
REPORT GIVEN TO JUAN TAMAYO. HOSPITALIST WAS PAGED RE: PT'S DISCHARGE. PER DALIA FONSECA, GIVE THE PT A DOSE OF ELIQUIS NOW THEN SEND HER HOME AND HAVE HER AGRICULTURAL SYSTEMS SPECIALIST THE PRESCRIPTIONS TOMORROW.
--- NOTE | 2020-01-18 19:40 | NUR ---
SPOKE WITH ORACLE ARCHITECT ASAEL REGARDING PATIENTS PENDING DISCHARGE. PER CATHLEEN SUP, OKAY TO DISCHARGE PATIENT AFTER GIVING 2200 DOSE OF ELIQUIS AND REFERRING PATIENT TO MOLD W[facility]ER PRESCRIPTION IN THE MORNING. EDUCATED PATIENT ON IMPORTANCE OF OBTAINING MEDICATION, PATIENT VERBALIZED UNDERSTANDING. WILL PROCEED WITH DISCHARGE PLANNED.
--- NOTE | 2020-01-18 20:47 | NUR ---
PATIENT DISCHARGED VIA WHEELCHAIR BY ABIGAIL MARTINEZ. SUDHRI TO TAKE PATIENT HOME. ALL PATIENT BELONGINGS TAKEN AND DOCUMENTS GIVEN. PATIENT EDUCATION GIVEN, VERBALIZED UNDERSTANDING. TELE BOX REMOVED, IV REMOVED, CATHETER INTACT, PATIENT TOLERATED WELL. NO ACUTE S/S OF DISTRESS NOTED. ADVISED PATIENT TO GET MEDICATION FROM PHARMACY IN THE MORNING. PATIENT VERBALIZED UNDERSTANDING.
[2020-01-21] MEDS ORDERED: APIXABAN 5 MG TAB PO SCH (22:00)
== END 2020-01-18 20:47 | disposition home or self-care (01) | DRG 720 ==
LOC: EDBD 13:50 → ER 13:50 → OVERFLOW 13:51 → ICU WEST 15:47 → TELE-WESTW 01-13 21:15
PROVIDERS: ADMIT Hospitalist; ATTEND Internal Medicine
PROC: 5A1945Z Respiratory Ventilation, 24-96 Consecutive Hours (ICD-10-PCS; principal; 2020-01-11)
PROC: 02HV33Z Insertion of Infusion Device into Superior Vena Cava, Percutaneous Approach (ICD-10-PCS; 2020-01-11)
PROC: 0BH17EZ Insertion of Endotracheal Airway into Trachea, Via Natural or Artificial Opening (ICD-10-PCS; 2020-01-11)
DX: A41.9 Sepsis, unspecified organism (principal); I21.A1 Myocardial infarction type 2; J96.01 Acute respiratory failure with hypoxia; I26.99 Other pulmonary embolism without acute cor pulmonale; J69.0 Pneumonitis due to inhalation of food and vomit; G93.41 Metabolic encephalopathy; N17.0 Acute kidney failure with tubular necrosis; E11.10 Type 2 diabetes mellitus with ketoacidosis without coma; E44.0 Moderate protein-calorie malnutrition; K20.9 Esophagitis, unspecified; R13.10 Dysphagia, unspecified; J98.11 Atelectasis; E87.6 Hypokalemia; Z91.19 Patient's noncompliance with other medical treatment and regimen; Z03.818 Encounter for observation for suspected exposure to other biological agents ruled out; Z82.49 Family history of ischemic heart disease and other diseases of the circulatory system; Z83.3 Family history of diabetes mellitus; Z87.01 Personal history of pneumonia (recurrent); Z79.899 Other long term (current) drug therapy; Z91.14 Patient's other noncompliance with medication regimen
CPT/HCPCS: 31500; 36415; 36556; 36600; 71045; 71275; 76705; 80048; 80053; 80061; 80076; 80307; 81001; 82010; 82533; 82550; 82728; 82805; 82962; 83036; 83540; 83550; 83605; 83615; 83735; 83880; 83930; 84100; 84132; 84443; 84484; 84702; 85007; 85025; 85027; 85045; 85379; 85610; 85652; 85730; 86141; 86704; 86706; 86708; 86710; 86803; 87040; 87070; 87077; 87081; 87086; 87186; 87205; 87340; 93005; 93306; 93970; 94002; 94003; 97163; 99291; C9113; G0378; J0330; J0696; J1815; J2250; J2543; J2704; J3480; J7060

== ENCOUNTER 2020-04-23 05:06 | Inpatient (IN) | payer MEDICAID, OTHER ==
[2020-04-23] VITALS (11 sets, daily range): BP systolic 96–125; BP diastolic 35–80
[~2020-04-23] VITALS: Ht 162.6 cm; Wt 60.5 kg
[~2020-04-23 05:06] MED LIST changes: +APIX5TAB PO; +DOX100T PO
[2020-04-23] MEDS ORDERED: SUCCINYLCHOLINE CHLORIDE 20 MG/ML 10ML VIAL IV ONE (05:21)
[2020-04-23] MEDS ORDERED: SODIUM BICARBONATE 8.4 % INJ 50ML VIAL IV ONE ×3 (05:21→09:30)
[2020-04-23] MEDS ORDERED: ETOMIDATE (2MG/ML) 20ML VIAL IV ONE (05:21)
[2020-04-23] MEDS ORDERED: InsuLIN REG 1unit/0.01ml Soln (100units/ml) IV ONE (05:30)
[2020-04-23] MEDS ORDERED: MIDAZOLAM DRIP 50 mg/50mL 50 ML IV ONE ×2 (05:37→09:30)
[2020-04-23 05:39] LABS: Eosinophils # (auto) 0 10 ^3/uL (0-0.8); Eosinophils % (auto) 0.1 % (0.0-7.0); Monocytes # (auto) 0.7 10 ^3/uL (0-1.3); Nucleated Red Blood Cells % 0.1 %
[2020-04-23 05:42] LABS: Basophils # (auto) 0.1 10 ^3/uL (0-0.2); Basophils % (auto) 0.7 % (0.0-2.0); Hematocrit 45.3 % (36.0-46.0); Hemoglobin 12.6 g/dL (12.2-16.2); Lymphocytes # (auto) 1.7 10 ^3/uL (0.4-5.4); Lymphocytes % (auto) 12.7 % (10.0-50.0); Mean Corpuscular Hemoglobin 28.3 pg (28.0-32.0); Mean Corpuscular Hgb Conc. 27.7 g/dL (32.0-36.0); Mean Corpuscular Volume 102.1 fL (80.0-100.0); Neutrophils % (auto) 81.5 % (37.0-80.0); Platelet Count (auto) 259 10^3/uL (140-450); Red Blood Cells 4.44 10^6/uL (4.0-5.20); White Blood Cell 13.5 10^3/uL (4.4-10.8)
[2020-04-23 05:48] LABS: Red Cell Distribution Width 21.2 % (11.8-14.3)
[2020-04-23 05:54] LABS: Albumin 2.8 g/dL (3.4-5.0); Calcium 7.7 mg/dL (8.5-10.1); Potassium 4.1 mmol/L (3.5-5.1)
[2020-04-23 05:57] LABS: Bilirubin, Total 0.5 mg/dL (0.2-1.0); Total Protein 6.8 g/dL (6.4-8.2)
[2020-04-23 06:05] LABS: BUN/Creatinine Ratio 9.8
[2020-04-23] MEDS ORDERED: InsuLIN REG 1unit/0.01ml Soln (100units/ml) ONE (06:18)
[2020-04-23] MEDS ORDERED: SODIUM CHLORIDE 0.9% 1,000 ML IV SCH ×3 (06:30→12:30)
[2020-04-23] MEDS ORDERED: ONDANSETRON HCL 4 MG/2 ML VIAL IV PRN (06:30)
[2020-04-23] MEDS ORDERED: DOCUSATE SOD 100 MG CAP PO PRN (06:30)
[2020-04-23] MEDS ORDERED: DEXTROSE (50%) 50ML SYRG IV PRN ×3 (06:30→07:00)
[2020-04-23] MEDS ORDERED: InsuLIN R (HUMAN) 100 UNITS in SODIUM CHL 0.9% 99 ML IV SCH ×2 (06:30→06:48)
[2020-04-23] MEDS ORDERED: D5W/SOD CHL 0.45%/KCL 20MEQ 1,000 ML IV SCH (06:30)
[2020-04-23] MEDS ORDERED: LORazepam 0.5 MG TAB PO PRN (06:30)
[2020-04-23] MEDS ORDERED: INSULIN LANTUS (GLARGINE) 1 /0.01ml (100units/ml) SC ONE ×2 (06:30)
[2020-04-23] MEDS ORDERED: InsuLIN REG 1unit/0.01ml Soln (100units/ml) SC SCH (07:00)
[2020-04-23] MEDS ORDERED: SODIUM CHLORIDE 0.9% 2,000 ML IV ONE (07:15)
[2020-04-23] MEDS: MIDAZOLAM DRIP 50 mg/50mL 50 ML IV SCH ×2 (07:30→21:47)
[2020-04-23] MEDS ORDERED: ACCU-CHEK COMFORT CURVE STRIP VI SCH ×3 (07:30→12:00)
[2020-04-23] MEDS: InsuLIN R (HUMAN) 100 UNITS in SODIUM CHL 0.9% 99 ML IV SCH (07:30)
[2020-04-23 07:46] LABS: Magnesium 3.9 mg/dL (1.6-2.6)
[2020-04-23] MEDS: ACCU-CHEK COMFORT CURVE STRIP VI SCH ×11 (08:00→22:56)
[2020-04-23] MEDS: cefTRIAXone 1GM/50ML D5W 50 ML IV SCH ×2 (08:39→10:00)
[2020-04-23 08:40] LABS: Phosphorus 13.9 mg/dL (2.5-4.90)
[2020-04-23] MEDS: SODIUM CHLORIDE 0.9% 1,000 ML IV SCH ×2 (09:16→09:17)
[2020-04-23] MEDS: PROPOFOL 100 ML IV SCH (09:30)
[2020-04-23] MEDS ORDERED: CALCIUM ACETATE 667 MG CAP PO ONE (10:00)
[2020-04-23 11:14] LABS: INR 1.07 (0.9-1.15); Partial Thromboplastin Time 21.5 sec (23.64-32.05)
[2020-04-23 11:17] LABS: Albumin 2.6 g/dL (3.4-5.0); Calcium 6.1 mg/dL (8.5-10.1)
[2020-04-23 11:21] LABS: BUN/Creatinine Ratio 10.8; Bilirubin, Total 0.4 mg/dL (0.2-1.0); Phosphorus 1.8 mg/dL (2.5-4.90); Total Protein 6.1 g/dL (6.4-8.2)
[2020-04-23 11:35] LABS: Potassium 2.9 mmol/L (3.5-5.1)
[2020-04-23] MEDS ORDERED: CALCIUM ACETATE 667 MG CAP PO SCH (12:00)
[2020-04-23] MEDS ORDERED: D5W/SOD CHL 0.45% 1,000 ML IV SCH (12:00)
[2020-04-23] MEDS: POTASSIUM CHL 20MEQ/100ML 100 ML IV SCH ×3 (12:15→16:16)
--- NOTE | 2020-04-23 12:30 | NUR ---
WOUND CARE NOTE: IN TO SEE PATIENT AT THIS TIME D/T INTUBATION STATUS. PATIENT IN ER, BED 17. SHE HAS BEEN ADMITTED TO [facility] WITH DIAGNOSIS OF DKA, HYPOXIC RESPIRATORY FAILURE. CURRENT ALTAGRACIA SCORE IS ASSESSED AT 10. SKIN/WOUND CARE PLAN IMPLEMENTED. PATIENT IS WOUND FREE AT THIS TIME. RECOMMEND: FREQUENT TURN SCHEDULE Q 2 HOURS, PRN CONDITION PERMITS, WITH PRESSURE REDISTRIBUTION USING PILLOWS/WEDGES, BID/PRN APPLICATION WITH MOISTURE BARRIER CREAM, OPTIFOAM GENTLE SACRAL DRESSING, DIETARY CONSULT FOR INTUBATION STATUS, SKIN/WOUND CARE PLAN, CONTINUED MONITORING BY WOUND CARE TEAM.
[2020-04-23] MEDS: fentaNYL Drip 2500mCg/250mlNS 250 ML IV SCH (14:00)
[2020-04-23] MEDS ORDERED: POTASSIUM CHLORIDE 20 MEQ in D5W/SOD CHL 0.45% 1,000 ML IV SCH (14:45)
[2020-04-23] MEDS: D5W/SOD CHL 0.45%/KCL 20MEQ 1,000 ML IV SCH ×2 (14:54→21:47)
[2020-04-23 15:31] LABS: BUN/Creatinine Ratio 9.1; Calcium 7.2 mg/dL (8.5-10.1)
[2020-04-23 15:34] LABS: Potassium 2.8 mmol/L (3.5-5.1)
[2020-04-23] MEDS ORDERED: ACETAMINOPHEN 325 MG TAB PO PRN (15:45)
[2020-04-23 17:51] LABS: BUN/Creatinine Ratio 7.6; Calcium 7.7 mg/dL (8.5-10.1); Magnesium 2.1 mg/dL (1.6-2.6); Phosphorus 1.5 mg/dL (2.5-4.90); Potassium 3.2 mmol/L (3.5-5.1)
[2020-04-23] MEDS: MEROPENEM 1GM IVPB 100 ML IV SCH (18:30)
[2020-04-23 19:02] LABS: Urine Bacteria NONE SEEN /hpf (None Seen); Urine Blood 1+ /uL (Negative); Urine Specific Gravity 1.015 (1.001-1.035); Urine WBC 2 /hpf (0 - 5)
[2020-04-23 19:21] LABS: Alcohol, Urine < 3.0 mg/dL (0-10); Amphetamine Screen, Urine NEGATIVE (NEGATIVE); Barbiturate Scree,Urine NEGATIVE (NEGATIVE); Benzodiazephine Screen, Urine POSITIVE (NEGATIVE); Cannabinoid Screen, Urine NEGATIVE (NEGATIVE); Cocaine Screen, Urine NEGATIVE (NEGATIVE)
[2020-04-23 19:29] LABS: Opiate Scree,Urine NEGATIVE (NEGATIVE); Phencyclidine Screen, Urine NEGATIVE (NEGATIVE)
[2020-04-23] MEDS: LINEZOLID 600MG/300ML 300 ML IV SCH (21:47)
[2020-04-24] VITALS (42 sets, daily range): BP systolic 99–119; BP diastolic 60–81
[2020-04-24] MEDS: PROPOFOL 100 ML IV SCH ×4 (00:08→23:58)
[2020-04-24] MEDS: InsuLIN R (HUMAN) 100 UNITS in SODIUM CHL 0.9% 99 ML IV SCH (00:09)
[2020-04-24] MEDS: ACCU-CHEK COMFORT CURVE STRIP VI SCH ×11 (00:09→20:55)
--- NOTE | 2020-04-24 01:15 | NUR ---
RT Transport Note: Patient transported to {CT} with RN {NICO}. Patient transported to and from procedure on ventilator with previous ordered settings. Patient on quantitative software engineer with alarms set and audible, ambu-bag/mask connected to 02 tank. Patient returned to room with no adverse reaction noted. Transport completed without incident.
[2020-04-24 01:20] LABS: Anion Gap 10 (5-15); Blood Urea Nitrogen 6 mg/dL (7-18); Carbon Dioxide 19 mmol/L (21-32); Chloride 123 mmol/L (98-107); Glucose 192 mg/dL (74-106); Sodium 152 mmol/L (136-145)
[2020-04-24 01:22] LABS: BUN/Creatinine Ratio 6.3; GFR African American 96 mL/min; GFR Non-African American 80 mL/min
[2020-04-24] MEDS ORDERED: POTASSIUM EFFERVESENT TAB 25 MEQ PO ONE (01:45)
[2020-04-24] MEDS: MEROPENEM 1GM IVPB 100 ML IV SCH ×2 (02:26→10:01)
[2020-04-24] MEDS: MIDAZOLAM DRIP 50 mg/50mL 50 ML IV SCH ×5 (02:32→23:34)
[2020-04-24] MEDS: POTASSIUM CHL 20MEQ/100ML 100 ML IV SCH ×3 (02:58→06:22)
[2020-04-24] MEDS: D5W/SOD CHL 0.45%/KCL 20MEQ 1,000 ML IV SCH (08:05)
[2020-04-24 09:25] LABS: Basophils # (auto) 0.1 10 ^3/uL (0-0.2); Basophils % (auto) 1.6 % (0.0-2.0); Eosinophils # (auto) 0.1 10 ^3/uL (0-0.8); Eosinophils % (auto) 1.4 % (0.0-7.0); Hematocrit 30.6 % (36.0-46.0); Hemoglobin 10.3 g/dL (12.2-16.2); Lymphocytes # (auto) 1.6 10 ^3/uL (0.4-5.4); Lymphocytes % (auto) 24.8 % (10.0-50.0); Mean Corpuscular Hemoglobin 28.4 pg (28.0-32.0); Mean Corpuscular Hgb Conc. 33.7 g/dL (32.0-36.0); Mean Corpuscular Volume 84.2 fL (80.0-100.0); Monocytes # (auto) 0.4 10 ^3/uL (0-1.3); Monocytes % (auto) 6.9 % (0.0-12.0); Neutrophils # (auto) 4.3 10 ^3/uL (1.6-8.6); Neutrophils % (auto) 65.3 % (37.0-80.0); Nucleated Red Blood Cells % 0.2 %; Platelet Count (auto) 134 10^3/uL (140-450); Red Blood Cells 3.63 10^6/uL (4.0-5.20); White Blood Cell 6.5 10^3/uL (4.4-10.8)
[2020-04-24 09:28] LABS: Red Cell Distribution Width 20.8 % (11.8-14.3)
[2020-04-24] MEDS: INSULIN LANTUS (GLARGINE) 1 /0.01ml (100units/ml) SC SCH ×2 (09:37→09:45)
[2020-04-24] MEDS: LINEZOLID 600MG/300ML 300 ML IV SCH (09:47)
[2020-04-24 09:58] LABS: Calcium 7.2 mg/dL (8.5-10.1); Potassium 4.1 mmol/L (3.5-5.1)
[2020-04-24] MEDS ORDERED: INSULIN LANTUS (GLARGINE) 1 /0.01ml (100units/ml) SC SCH (10:00)
[2020-04-24 10:18] LABS: Albumin 2.2 g/dL (3.4-5.0); BUN/Creatinine Ratio 4.4; Bilirubin, Total 0.3 mg/dL (0.2-1.0); Magnesium 1.6 mg/dL (1.6-2.6); Phosphorus 1.4 mg/dL (2.5-4.90); Total Protein 5.4 g/dL (6.4-8.2)
[2020-04-24] MEDS: FAMOTIDINE INJECTION 40 MG in SODIUM CHL 0.9% 100 ML IV SCH (10:30)
[2020-04-24] MEDS ORDERED: POTASSIUM PHOSPHATE 44 MEQ in D5W 5% 250 ML IV ONE (11:00)
[2020-04-24] MEDS ORDERED: DEXTROSE (50%) 50ML SYRG IV PRN (11:00)
--- NOTE | 2020-04-24 11:35 | NUR ---
RT NOTE: PT TRANSPORTED TO CT ON TRANSPORT VENT. TRANSPORT OCCURRED W/O INCIDENT. 2 RNs, 1 TECH AND THERAPIST AT BEDSIDE. RETURNED BACK TO BED AND P[LACED ONTO BEDSIDE VENT. WILL CONTINUE TO MONITOR.
--- NOTE | 2020-04-24 12:00 | NUR ---
Nutrition Assessment Notes Please refer to link for full assessment notes. Est Energy needs: 7664-6703 kcals (25-30 kcal/kgBW) Est Protein needs: 71-94 gms/day (1.2-1.6 gm/kgBW) Will continue to monitor and reassess prn. Addendum: 04/24/20 at [address] Amended: Links added.
[2020-04-24] MEDS: InsuLIN REG 1unit/0.01ml Soln (100units/ml) SC SCH ×3 (12:29→20:55)
[2020-04-24] MEDS: fentaNYL Drip 2500mCg/250mlNS 250 ML IV SCH (13:16)
[2020-04-24 14:11] LABS: BUN/Creatinine Ratio 4.6; Calcium 7.3 mg/dL (8.5-10.1); Potassium 3.1 mmol/L (3.5-5.1)
--- NOTE | 2020-04-24 14:40 | NUR ---
RT NOTE: TRANSPORTED PT TO ICU BED 101. 2 RNs, 1 TECH AND RT AT BEDSIDE. TRANSPORT HAPPENED W/O INCIDENT. WILL CONTINUE TO MONITOR.
[2020-04-24] MEDS: POTASSIUM CHLORIDE 20 MEQ in D5W 5% 1,000 ML IV SCH (15:00)
--- NOTE | 2020-04-24 15:00 | NUR ---
ARRIVED ON UNIT Patient arrived to unit with certification technician, lead rider, and RN attached to transport monitor. Moved to ICU bed without issue.
--- NOTE | 2020-04-24 15:10 | NUR ---
INITIAL ASSESSMENT COMPLETE
[2020-04-24] MEDS ORDERED: POTASSIUM CHLORIDE 20 MEQ in D5W 5% 1,000 ML IV SCH (15:15)
[2020-04-24] MEDS: DOXYCYCLINE 100MG/250ML 250 ML IV SCH (16:35)
--- NOTE | 2020-04-24 19:15 | NUR ---
RECEIVED REPORT FROM PARI RN ADMION, PT. IN BED ORALLY INTUBATED WITH ETT # 8.0 , 24 CM AT THE LIP, CONNECTED TO A MECHANICAL VENT AT ORDERED SETTINGS, OGT INTACT, KEPT ON NPO, RT EJ IV SITE INTACT, ON PROPOFOL, VERSED AND FENTANYL DRIP, ALSO ON D5W+ 44 MEQ KPHOS AT 32.5 ML/HR. SKIN WARM TO TOUCH, LT EJ HL INTACT, LT UPPER ARM MIDLINE INTACT. OWENS IN AND DRAINING WELL. 2100- COOLING MEASURES DONE.
[2020-04-24 23:54] LABS: BUN/Creatinine Ratio 4.5; Calcium 7.3 mg/dL (8.5-10.1); Potassium 3.9 mmol/L (3.5-5.1)
[2020-04-25] VITALS (84 sets, daily range): BP systolic 86–126; BP diastolic 45–78
[2020-04-25] MEDS: ACCU-CHEK COMFORT CURVE STRIP VI SCH ×4 (00:30→12:27)
[2020-04-25] MEDS: InsuLIN REG 1unit/0.01ml Soln (100units/ml) SC SCH ×4 (00:33→12:00)
[2020-04-25] MEDS: MIDAZOLAM DRIP 50 mg/50mL 50 ML IV SCH ×5 (03:08→22:50)
--- NOTE | 2020-04-25 04:00 | NUR ---
T 101 RECTALLY, AM CARE AND COOLING MEASURES DONE, SUCTIONED ORALLY , BLD TINGED SECRETIONS, THIN SECRETIONS FROM ETT, ACCUCHECK DONE 129 AND INSULIN COVERAGE GIVEN. COOLING BLANKETS APPLIED UNDER AND OVER THE PATIENT. REPOSITIONED.
[2020-04-25] MEDS: DOXYCYCLINE 100MG/250ML 250 ML IV SCH ×2 (04:22→16:38)
[2020-04-25 04:44] LABS: BUN/Creatinine Ratio 5.5; Calcium 7.1 mg/dL (8.5-10.1); Potassium 4.1 mmol/L (3.5-5.1)
--- NOTE | 2020-04-25 06:00 | NUR ---
DESATURATING TO LOW 90s, SUCTIONED ORALLY. 0600 RT AT BEDSIDE, ABG WAS DONE, PO2 88, INCREASED FIO2 TO 35%
--- NOTE | 2020-04-25 07:15 | NUR ---
REPORT GIVEN TO SARI MARTINEZ.
--- NOTE | 2020-04-25 07:25 | NUR ---
OPENING NOTE RECEIVED REPORT FROM KIER DRIER RN. PT IS INTUBATED AND SEDATED. NO S/S OF DISTRESS NOTED. PT TEMPERATURE IS ELEVATED, COOLING BLANKET IS ON. BED IS LOCKED AT LOWEST POSITION, SIDE RAILS ARE UP. WILL CONTINUE TO MONITOR. Signed: 04/25/20 at 1538 by RENATO ROSALES SN <Co-Signature Required> Co-Signed: 04/25/20 at 1538 by Lona Gómez RN
--- NOTE | 2020-04-25 07:30 | NUR ---
DR DALEY AT BEDSIDE DISCUSSED PT STATUS AND POC. Signed: 04/25/20 at 1539 by RENATO ROSALES SN <Co-Signature Required> Co-Signed: 04/25/20 at 1539 by Lona Gómez RN
--- NOTE | 2020-04-25 07:30 | NUR ---
INITIAL ASSESSMENT COMPLETED. SEE FLOW SHEET FOR DATA .
--- NOTE | 2020-04-25 09:05 | NUR ---
CT ANGIO ORDERED BY DR BAILEY. DISCUSSED WITH [place], PT SISTER ABOUT THIS PROCEDURE AND AGREED AND CONSENTED .
--- NOTE | 2020-04-25 09:50 | NUR ---
CT BK DUBOIS RN, AND RESPIRATORY THERAPIST AT BEDSIDE FOR PT TRANSFER TO RADIOLOGY FOR CT ANGIO Signed: 04/25/20 at 1540 by RENATO ROSALES SN <Co-Signature Required> Co-Signed: 04/25/20 at 1540 by Lona Gómez RN
[2020-04-25] MEDS ORDERED: IOHEXOL 350 MG/ML 100ML IJ ONE (09:57)
--- NOTE | 2020-04-25 10:10 | NUR ---
RT Transport Note: Patient transported to {CT} with RN {RAHEL David}. Patient transported to and from procedure on ventilator with previous ordered settings. Patient on registered nurse cardiac telemetry with alarms set and audible, ambu-bag/mask connected to 02 tank. Patient returned to room with no adverse reaction noted. Transport completed without incident.
[2020-04-25] MEDS: INSULIN LANTUS (GLARGINE) 1 /0.01ml (100units/ml) SC SCH (10:32)
[2020-04-25] MEDS: FAMOTIDINE INJECTION 40 MG in SODIUM CHL 0.9% 100 ML IV SCH (10:33)
[2020-04-25] MEDS: POTASSIUM CHLORIDE 20 MEQ in D5W 5% 1,000 ML IV SCH (10:34)
[2020-04-25] MEDS ORDERED: cefTRIAXone 1GM/50ML D5W 50 ML IV ONE (11:00)
[2020-04-25] MEDS ORDERED: ENOXAPARIN SOD 40 MG/0.4 ML SYRINGE SC ONE (11:00)
[2020-04-25 11:55] LABS: INR 1.05 (0.9-1.15)
[2020-04-25 11:59] LABS: BUN/Creatinine Ratio 6.4; Calcium 7.6 mg/dL (8.5-10.1); Potassium 3.5 mmol/L (3.5-5.1)
--- NOTE | 2020-04-25 12:10 | NUR ---
Respiratory note: RETRACTED ETT 2CM FROM [address] ANGIO REPORT.JUAN QUEEN
[2020-04-25] MEDS: PROPOFOL 100 ML IV SCH ×3 (12:12→19:16)
[2020-04-25 13:11] LABS: Albumin 2.4 g/dL (3.4-5.0); Bilirubin, Direct 0.2 mg/dL (0-0.2)
[2020-04-25] MEDS: fentaNYL Drip 2500mCg/250mlNS 250 ML IV SCH ×2 (13:16→20:34)
[2020-04-25 13:20] LABS: Bilirubin, Total 0.3 mg/dL (0.2-1.0); Total Protein 6.3 g/dL (6.4-8.2)
[2020-04-25] MEDS ORDERED: ACETYLCYSTEINE 10 %(100MG/ML) SOL 4ML NEB SCH (14:00)
[2020-04-25] MEDS: IPRATROPIUM BROM 0.5 MG/2.5ML INH SOL NEB SCH ×3 (14:00→21:53)
[2020-04-25] MEDS: ALBUTEROL SULF 2.5 MG/0.5ML(0.5%) NEB SOLN NEB SCH ×3 (14:01→21:52)
[2020-04-25] MEDS ORDERED: Glucerna 1.2 Cal 1Liter BOTTLE GT SCH (14:45)
--- NOTE | 2020-04-25 15:00 | NUR ---
ULTRASOUND AT BEDSIDE FOR LIVER US. Signed: 04/25/20 at 1539 by RENATO ROSALES <Co-Signature Required> Co-Signed: 04/25/20 at 1539 by Lona Gómez RN
--- NOTE | 2020-04-25 15:15 | NUR ---
DR CASTELLANOS HERE TO SEE PT.
--- NOTE | 2020-04-25 15:20 | NUR ---
PAPER COUNTER AT BEDSIDE TECH STATING PT IS CREATING TOO MUCH ARTIFACT WITH THE SHIVERING AND IT IS INTERFERING WITH TEST. TECH NOTIFIED DR DALEY AND DR SALGADO TEST CAN BE DONE TOMORROW. Signed: 04/25/20 at 1543 by ERNATO ROSALES <Co-Signature Required> Co-Signed: 04/25/20 at 1543 by Lona Gómez RN
--- NOTE | 2020-04-25 15:30 | NUR ---
ELECTROENCEPHALOGRAM UNABLE TO COMPLETE EEG. COOLING MEASURES IN PLACE CAUSING SHIVERING LEADING TO EXCESSIVE ARTIFACT. DR. DALEY AND PRIMARY RN AWARE.
[2020-04-25] MEDS ORDERED: ACETYLCYSTEINE PO FOR APAP TOX 200 MG/ML ML PO ONE (16:00)
[2020-04-25 16:02] LABS: Acetaminophen < 2.0 ug/mL (10-30); Salicylate < 1.7 mg/dL (2.8-20.0)
[2020-04-25] MEDS: D5W/SOD CHL 0.45%/KCL 20MEQ 1,000 ML IV SCH ×2 (16:37)
--- NOTE | 2020-04-25 18:41 | NUR ---
RT NOTE RECEIVED PT INTUBATED AND ON VENT V4 ON STATED SETTINGS. VENT IS PLUGGED TO RED OUTLET. ALARMS ARE ON AND AUDIBLE TO NURSING. AMBU BAG AT BEDSIDE AND CONNECTED TO O2. 8.0 ETT IS SECURED WITH ANCHORFAST AT 21 CM AT THE TEETH AT THE ORAL LEFT. BITE BLOCK IN PLACE. BS ARE CTA. PT SUCTIONED FOR SCANT RETURN. HHN GIVEN INLINE WITH 2.5 MG ALBUTEROL AND 0.5 MG ATROVENT WITHOUT ADVERSE REACTION NOTED.CONT ORDERED. POX 99% Addendum: 04/25/20 at 1845 by Shital Poon RT Amended: Links added.
--- NOTE | 2020-04-25 20:08 | NUR ---
RT NOTE ROUTINE VENT CHECK DONE. PT INTUBATED AND ON VENT V4 ON STATED SETTINGS. VENT IS PLUGGED TO RED OUTLET. ALARMS ARE ON AND AUDIBLE TO NURSING. AMBU BAG AT BEDSIDE AND CONNECTED TO O2. 8.0 ETT IS SECURED WITH ANCHORFAST AT 21 CM AT THE TEETH AT THE ORAL LEFT. BITE BLOCK IN PLACE. CONT ORDERED. POX 100% Addendum: 04/25/20 at 2034 by Shital Poon RT Amended: Links added.
--- NOTE | 2020-04-25 20:10 | NUR ---
DRESSING CHANGED ON LEFT EJ CHANGED IT USING STERILE TECHNIQUE. PT TOLERATED WELL.
[2020-04-25] MEDS: APIXABAN 5 MG TAB PO SCH (21:38)
--- NOTE | 2020-04-25 21:47 | NUR ---
RT NOTE ROUTINE VENT CHECK DONE. PT INTUBATED AND ON VENT V4 ON STATED SETTINGS. VENT IS PLUGGED TO RED OUTLET. ALARMS ARE ON AND AUDIBLE TO NURSING. AMBU BAG AT BEDSIDE AND CONNECTED TO O2. 8.0 ETT IS SECURED WITH ANCHORFAST AT 21 CM AT THE TEETH AT THE ORAL RIGHT. BITE BLOCK REMOVED.BS ARE CTA. HHN GIVEN INLINE WITH 2.5 MG ALBUTEROL AND 0.5 MG ATROVENT WITHOUT ADVERSE REACTION NOTED. PT WAS SUCTIONED FOR SMALL RETURN.CONT ORDERED. POX 100% Addendum: 04/25/20 at 2259 by Shital Poon RT Amended: Links added.
[2020-04-25] MEDS: ACETYLCYSTEINE PO FOR APAP TOX 200 MG/ML ML PO SCH ×2 (22:02→23:59)
--- NOTE | 2020-04-25 23:48 | NUR ---
HOSPITALIST AT BEDSIDE ST 124, BP DROPS TO HIGH 80'S NO NEW ORDERS
--- NOTE | 2020-04-25 23:52 | NUR ---
RT NOTE ROUTINE VENT CHECK DONE. PT INTUBATED AND ON VENT V4 ON STATED SETTINGS. VENT IS PLUGGED TO RED OUTLET. ALARMS ARE ON AND AUDIBLE TO NURSING. AMBU BAG AT BEDSIDE AND CONNECTED TO O2. 8.0 ETT IS SECURED WITH ANCHORFAST AT 21 CM AT THE TEETH AT THE ORAL RIGHT.JUAN BEE AT BEDSIDE.CONT ORDERED. POX 100% Addendum: 04/26/20 at 0029 by Shital Poon RT Amended: Links added.
[2020-04-26] VITALS (91 sets, daily range): BP systolic 82–113; BP diastolic 42–73
--- NOTE | 2020-04-26 01:50 | NUR ---
RT NOTE ROUTINE VENT CHECK DONE. PT INTUBATED AND ON VENT V4 ON STATED SETTINGS. VENT IS PLUGGED TO RED OUTLET. ALARMS ARE ON AND AUDIBLE TO NURSING. AMBU BAG AT BEDSIDE AND CONNECTED TO O2. 8.0 ETT IS SECURED WITH ANCHORFAST AT 21 CM AT THE TEETH AT THE ORAL RIGHT.JUAN BEE AT BEDSIDE. HHN GIVEN INLINE WITH 2.5 MG ALBUTEROL AND 0.5 MG ATROVENT WITHOUT ADVERSE REACTION NOTED. CONT ORDERED. POX 100% Addendum: 04/26/20 at 0157 by Shital Poon RT Amended: Links added.
[2020-04-26] MEDS: IPRATROPIUM BROM 0.5 MG/2.5ML INH SOL NEB SCH ×6 (01:52→21:53)
[2020-04-26] MEDS: ALBUTEROL SULF 2.5 MG/0.5ML(0.5%) NEB SOLN NEB SCH ×6 (01:52→21:53)
--- NOTE | 2020-04-26 02:00 | NUR ---
RT NOTE HME CHANGED WITHOUT INCIDENT
--- NOTE | 2020-04-26 04:00 | NUR ---
RT NOTE ROUTINE VENT CHECK DONE. PT INTUBATED AND ON VENT V4 ON STATED SETTINGS. VENT IS PLUGGED TO RED OUTLET. ALARMS ARE ON AND AUDIBLE TO NURSING. AMBU BAG AT BEDSIDE AND CONNECTED TO O2. 8.0 ETT IS SECURED WITH ANCHORFAST AT 21 CM AT THE TEETH AT THE ORAL RIGHT. CONT ORDERED. POX 100% Addendum: 04/26/20 at 0414 by Shital Poon RT Amended: Links added.
--- NOTE | 2020-04-26 04:10 | NUR ---
CARES PARTIAL BED BATH AND PARTIAL BED LINEN CHANGE. APPLIED OPTIFOAM TO SACRUM FOR PREVENTATIVE MEASURE.
[2020-04-26 04:23] LABS: Basophils # (auto) 0.1 10 ^3/uL (0-0.2); Basophils % (auto) 1.1 % (0.0-2.0); Eosinophils # (auto) 0.1 10 ^3/uL (0-0.8); Eosinophils % (auto) 1.4 % (0.0-7.0); Hematocrit 28.4 % (36.0-46.0); Hemoglobin 9.5 g/dL (12.2-16.2); Lymphocytes # (auto) 1.5 10 ^3/uL (0.4-5.4); Lymphocytes % (auto) 22.2 % (10.0-50.0); Mean Corpuscular Hemoglobin 28.5 pg (28.0-32.0); Mean Corpuscular Hgb Conc. 33.6 g/dL (32.0-36.0); Mean Corpuscular Volume 84.7 fL (80.0-100.0); Monocytes # (auto) 0.4 10 ^3/uL (0-1.3); Monocytes % (auto) 5.3 % (0.0-12.0); Neutrophils # (auto) 4.6 10 ^3/uL (1.6-8.6); Nucleated Red Blood Cells % 0.1 %; Platelet Count (auto) 75 10^3/uL (140-450); Red Blood Cells 3.35 10^6/uL (4.0-5.20); White Blood Cell 6.6 10^3/uL (4.4-10.8)
[2020-04-26 04:26] LABS: Red Cell Distribution Width 20.9 % (11.8-14.3)
[2020-04-26 04:32] LABS: Albumin 1.8 g/dL (3.4-5.0); Calcium 6.6 mg/dL (8.5-10.1); Potassium 3.2 mmol/L (3.5-5.1)
[2020-04-26] MEDS: ACETYLCYSTEINE PO FOR APAP TOX 200 MG/ML ML PO SCH ×4 (04:36→17:09)
[2020-04-26] MEDS: DOXYCYCLINE 100MG/250ML 250 ML IV SCH ×2 (04:40→17:21)
[2020-04-26 04:50] LABS: BUN/Creatinine Ratio 7.3; Bilirubin, Total 0.3 mg/dL (0.2-1.0); Total Protein 5.2 g/dL (6.4-8.2)
[2020-04-26] MEDS ORDERED: POTASSIUM CHL 20MEQ/100ML 100 ML IV ONE (06:30)
[2020-04-26] MEDS: PROPOFOL 100 ML IV SCH ×2 (06:59)
[2020-04-26] MEDS: MIDAZOLAM DRIP 50 mg/50mL 50 ML IV SCH (07:00)
--- NOTE | 2020-04-26 08:00 | NUR ---
Provider/Hospitalist at bedside Dr. Sprague made rounds and saw pt. and made some orders, was updated on pt.'s status/condition.
[2020-04-26] MEDS: cefTRIAXone 1GM/50ML D5W 50 ML IV SCH (08:38)
[2020-04-26] MEDS ORDERED: SOD CHL IV SCH (08:45)
[2020-04-26] MEDS ORDERED: POTASSIUM CHLORIDE IV SCH (08:45)
[2020-04-26] MEDS ORDERED: D5 IV SCH (08:45)
[2020-04-26] MEDS ORDERED: KCL 20 MEQ IV SCH (08:45)
[2020-04-26] MEDS ORDERED: POTASSIUM PHOSPHATE 22 MEQ in SODIUM CHL 0.9% 100 ML IV ONE (08:45)
[2020-04-26] MEDS ORDERED: ENOXAPARIN SOD 40 MG/0.4 ML SYRINGE SC SCH (10:00)
[2020-04-26] MEDS: INSULIN LANTUS (GLARGINE) 1 /0.01ml (100units/ml) SC SCH (10:00)
[2020-04-26] MEDS: APIXABAN 5 MG TAB PO SCH ×2 (10:52→23:13)
--- NOTE | 2020-04-26 11:14 | NUR ---
Nutrition Followup Notes Wt: 71.8 kg Pt`s intubated sedated with propofol @ 10.6 ml/hr providing 280 kcals from fats. pt is currently NPO with no new diet orders Est Energy needs: 9557-7508 kcals (25-30 kcal/kgBW). Est Protein needs: 71-94 gms/day (1.2-1.6 gm/kgBW). Will continue to monitor and reassess prn. LABS: GLU 264 H, AST/ALT 3067/926 H, ALB 1.8 L, CA 6.6 L GI: Pt has no BM reported per RN doc BS: 10 high risk. Refer to wound assessment report for full details. PES: 1) Increased nutrient needs aeb pt is NPO r/t pt with no PO intake 2) Altered nutrition related lab values aeb hyperglycemia, elev A1c, hypocalcemia, mod hypoalbuminemia r/t current/chronic medical condition Comments Will continue to closely monitor pertinent labs, NPO status, skin status and weight trends. Will f/u in 2-3 days Rec: 1) Consider EN support with Glucerna @ 50 ml/hr per MD approval. 2) Gradually advance pt to oral [id number] diet when medically feasible and as tolerated . 3) Refer pt to RD/CDE for nutrition education upon D/C. 4) Continue current plan of care
--- NOTE | 2020-04-26 11:30 | NUR ---
Provider/Hospitalist at bedside Dr. Castillo made rounds and saw pt. and made some orders, updated MD on pt.'s status.
[2020-04-26] MEDS ORDERED: DEXTROSE (50%) 50ML SYRG IV PRN (12:00)
[2020-04-26] MEDS: FAMOTIDINE INJECTION 40 MG in SODIUM CHL 0.9% 100 ML IV SCH (12:19)
[2020-04-26] MEDS: ACCU-CHEK COMFORT CURVE STRIP VI SCH ×2 (12:40→17:53)
[2020-04-26] MEDS: InsuLIN REG 1unit/0.01ml Soln (100units/ml) SC SCH ×2 (12:44→17:53)
--- NOTE | 2020-04-26 13:00 | NUR ---
GI / Dietz catheter flushed earlier as per Dr. Castillo-bladder distention seen and sediments noted, better flow of urine seen, will monitor pt.
[2020-04-26] MEDS: D5 IV SCH ×2 (13:18→20:23)
[2020-04-26] MEDS: SOD CHL IV SCH ×2 (13:18→20:23)
[2020-04-26] MEDS: POTASSIUM CHLORIDE IV SCH ×2 (13:18→20:23)
--- NOTE | 2020-04-26 15:30 | NUR ---
LOW BP noted pt.'s sbp sustaining in the 80s, notified Dr. Castillo and gave some orders
[2020-04-26] MEDS ORDERED: SODIUM CHLORIDE 0.9% 1,000 ML IV ONE (15:45)
--- NOTE | 2020-04-26 16:00 | NUR ---
TRANSITION OF CARE report given to Kayla Elizabeth RN to take over are of pt.
[2020-04-26] MEDS: ALBUMIN 25% 100 ML IV SCH ×2 (17:21→23:15)
[2020-04-26] MEDS: FREE WATER GT SCH ×2 (18:07→22:00)
[2020-04-27] VITALS (86 sets, daily range): BP systolic 82–158; BP diastolic 46–103
[2020-04-27] MEDS: ACCU-CHEK COMFORT CURVE STRIP VI SCH ×5 (00:28→23:58)
[2020-04-27] MEDS: fentaNYL Drip 2500mCg/250mlNS 250 ML IV SCH (01:14)
[2020-04-27] MEDS: ALBUTEROL SULF 2.5 MG/0.5ML(0.5%) NEB SOLN NEB SCH ×6 (01:53→22:15)
[2020-04-27] MEDS: IPRATROPIUM BROM 0.5 MG/2.5ML INH SOL NEB SCH ×6 (01:53→22:15)
[2020-04-27] MEDS: FREE WATER GT SCH ×6 (02:00→22:00)
[2020-04-27] MEDS: D5 IV SCH (03:36)
[2020-04-27] MEDS: SOD CHL IV SCH (03:36)
[2020-04-27] MEDS: POTASSIUM CHLORIDE IV SCH (03:36)
[2020-04-27] MEDS: ACETYLCYSTEINE PO FOR APAP TOX 200 MG/ML ML PO SCH ×7 (04:00→23:49)
[2020-04-27 04:01] LABS: Basophils # (auto) 0.1 10 ^3/uL (0-0.2); Basophils % (auto) 1.1 % (0.0-2.0); Eosinophils # (auto) 0.1 10 ^3/uL (0-0.8); Eosinophils % (auto) 1.3 % (0.0-7.0); Hematocrit 30.9 % (36.0-46.0); Hemoglobin 10.1 g/dL (12.2-16.2); Lymphocytes # (auto) 1.7 10 ^3/uL (0.4-5.4); Lymphocytes % (auto) 24.8 % (10.0-50.0); Mean Corpuscular Hemoglobin 28.4 pg (28.0-32.0); Mean Corpuscular Hgb Conc. 32.8 g/dL (32.0-36.0); Mean Corpuscular Volume 86.7 fL (80.0-100.0); Monocytes # (auto) 0.7 10 ^3/uL (0-1.3); Monocytes % (auto) 9.7 % (0.0-12.0); Neutrophils # (auto) 4.4 10 ^3/uL (1.6-8.6); Neutrophils % (auto) 63.1 % (37.0-80.0); Platelet Count (auto) 80 10^3/uL (140-450); Red Blood Cells 3.56 10^6/uL (4.0-5.20); White Blood Cell 6.9 10^3/uL (4.4-10.8)
[2020-04-27 04:12] LABS: Albumin 2.4 g/dL (3.4-5.0); Calcium 7.3 mg/dL (8.5-10.1); Potassium 3.9 mmol/L (3.5-5.1); Red Cell Distribution Width 21.2 % (11.8-14.3)
[2020-04-27 04:21] LABS: BUN/Creatinine Ratio 6.7; Bilirubin, Total 0.6 mg/dL (0.2-1.0); Total Protein 5.8 g/dL (6.4-8.2)
[2020-04-27] MEDS: MIDAZOLAM DRIP 50 mg/50mL 50 ML IV SCH (05:02)
[2020-04-27] MEDS: InsuLIN REG 1unit/0.01ml Soln (100units/ml) SC SCH ×4 (06:00→17:48)
[2020-04-27] MEDS: DOXYCYCLINE 100MG/250ML 250 ML IV SCH ×2 (07:01→16:46)
[2020-04-27] MEDS ORDERED: methylPREDNISolone SOD SUCC 40 MG/ML VL IV ONE (08:15)
--- NOTE | 2020-04-27 08:18 | NUR ---
DR. DALEY HERE TO SEE PATIENT. SEE MD NOTES AND EMR FOR ANY NEW ORDERS.
[2020-04-27] MEDS: cefTRIAXone 1GM/50ML D5W 50 ML IV SCH (08:50)
[2020-04-27] MEDS: ALBUMIN 25% 100 ML IV SCH (08:50)
[2020-04-27] MEDS: PROPOFOL 100 ML IV SCH (09:10)
[2020-04-27 09:21] LABS: Hepatitis B Surface Antibody Negative
[2020-04-27 09:50] LABS: Hepatitis A Total Antibody Positive
[2020-04-27] MEDS: FAMOTIDINE INJECTION 40 MG in SODIUM CHL 0.9% 100 ML IV SCH (10:00)
--- NOTE | 2020-04-27 10:00 | NUR ---
DR. BAILEY HERE TO SEE PATIENT. SEE MD NOTES AND EMR FOR ANY NEW ORDERS.
[2020-04-27] MEDS: BUDESONIDE (INHALATION) 0.5 MG/2 ML NEB NEB SCH ×2 (10:11→17:56)
[2020-04-27] MEDS ORDERED: D5W 5% 1,000 ML IV ONE (10:30)
[2020-04-27] MEDS: INSULIN LANTUS (GLARGINE) 1 /0.01ml (100units/ml) SC SCH (10:32)
[2020-04-27] MEDS: APIXABAN 5 MG TAB PO SCH ×2 (10:32→23:47)
[2020-04-27 11:34] LABS: Hepatitis A Ab IgM Negative; Hepatitis B Core IgM Negative; Hepatitis B Core Total AB Negative; Hepatitis B Surface Antigen Negative (Negative)
[2020-04-27 11:35] LABS: Hepatitis C Antibody Negative (Negative)
[2020-04-27 11:39] LABS: Urine Bacteria NONE SEEN /hpf (None Seen); Urine Blood 1+ /uL (Negative); Urine Budding Yeast LOADED /hpf (None Seen); Urine Mucus FEW (None Seen); Urine Specific Gravity 1.018 (1.001-1.035); Urine WBC 671 /hpf (0 - 5); Urine WBC Clumps PRESENT /hpf (None Seen)
[2020-04-27] MEDS: methylPREDNISolone SOD SUCC 40 MG/ML VL IV SCH ×2 (14:00→23:47)
--- NOTE | 2020-04-27 16:16 | NUR ---
assessment Patient is a 19 year old female who is on a vent in ICU. Per patients sister Ariana Pratt [phone] prior to admission patient lived home with her and was independent. Per Ariana patient has been non-compliant with her diabetes. Per Ariana patient knows what he should do to be healthy, but does not follow MD directions. Per Ariana patient was found on the floor in cobol developer and she called 911. Patient uses PCP at the [facility] in [place]. I informed Ariana I will continue to monitor and follow up as appropriate. I informed Ariana patients post discharge needs to be determined after extubation and prior to discharge. Ariana verbalized understanding. Addendum: 04/27/20 at 1621 by Joan SANCHEZ Amended: Links added.
--- NOTE | 2020-04-27 19:30 | NUR ---
PT SEDATED, AROUSABLE BY PAINFUL STIMULI, ETT TO VENT, SETTINGS AC16/TV450/FIO2 30%/PEEP5, POX99%. NO SOB OR DISTRESS. SR ON THE MONITOR. OGT PLACEMENT CHECKED, INFUSING GLUCERNA @30ML/HR, RESIDUALS 170ML. OWENS CATHETER DRAINING YELLOW SEDIMENT URINE VIA GRAVITY. SAFETY PRECAUTIONS IN PLACE. WILL CONTINUE TO MONITOR.
[2020-04-28] VITALS (57 sets, daily range): BP systolic 101–142; BP diastolic 57–98
[2020-04-28] MEDS: InsuLIN REG 1unit/0.01ml Soln (100units/ml) SC SCH ×5 (00:02→23:41)
--- NOTE | 2020-04-28 00:15 | NUR ---
PT MOVING BUE DURING ORAL CARE, PT BECOMING AGITATED, REORIENTED AND EDUCATED, PT CONTINUES TO BECOME AGITATED AND GRABBING AT ETT. PROPOFOL RESTARTED, PT TOLERATING WELL.
[2020-04-28] MEDS: MIDAZOLAM DRIP 50 mg/50mL 50 ML IV SCH (00:26)
[2020-04-28] MEDS: PROPOFOL 100 ML IV SCH ×2 (00:28→05:56)
[2020-04-28] MEDS: FREE WATER GT SCH ×3 (00:33→10:09)
[2020-04-28] MEDS: ALBUTEROL SULF 2.5 MG/0.5ML(0.5%) NEB SOLN NEB SCH ×6 (02:22→22:49)
[2020-04-28] MEDS: IPRATROPIUM BROM 0.5 MG/2.5ML INH SOL NEB SCH ×6 (02:22→22:49)
[2020-04-28] MEDS: ACETYLCYSTEINE PO FOR APAP TOX 200 MG/ML ML PO SCH ×3 (04:00→12:00)
--- NOTE | 2020-04-28 04:00 | NUR ---
PT TOLERATING PROPOFOL. BED BATH GIVEN AND LINENS CHANGED, SAFETY PRECAUTIONS IN PLACE. WILL CONTINUE TO MONITOR.
[2020-04-28] MEDS: DOXYCYCLINE 100MG/250ML 250 ML IV SCH ×2 (04:15→16:30)
[2020-04-28 05:36] LABS: Potassium 3.3 mmol/L (3.5-5.1)
[2020-04-28 05:43] LABS: Albumin 2.5 g/dL (3.4-5.0); BUN/Creatinine Ratio 16.7; Bilirubin, Total 0.4 mg/dL (0.2-1.0); Calcium 8.5 mg/dL (8.5-10.1); Total Protein 5.9 g/dL (6.4-8.2)
[2020-04-28] MEDS: methylPREDNISolone SOD SUCC 40 MG/ML VL IV SCH (06:03)
[2020-04-28] MEDS: ACCU-CHEK COMFORT CURVE STRIP VI SCH ×4 (06:15→23:41)
[2020-04-28 07:44] LABS: Basophils # (auto) 0 10 ^3/uL (0-0.2); Basophils % (auto) 0.4 % (0.0-2.0); Eosinophils # (auto) 0 10 ^3/uL (0-0.8); Eosinophils % (auto) 0.1 % (0.0-7.0); Hematocrit 31.6 % (36.0-46.0); Hemoglobin 10.5 g/dL (12.2-16.2); Lymphocytes # (auto) 0.8 10 ^3/uL (0.4-5.4); Lymphocytes % (auto) 19.2 % (10.0-50.0); Mean Corpuscular Hemoglobin 28.6 pg (28.0-32.0); Mean Corpuscular Hgb Conc. 33.3 g/dL (32.0-36.0); Mean Corpuscular Volume 86.1 fL (80.0-100.0); Monocytes # (auto) 0.5 10 ^3/uL (0-1.3); Monocytes % (auto) 11.2 % (0.0-12.0); Neutrophils % (auto) 69.1 % (37.0-80.0); Nucleated Red Blood Cells % 0.3 %; Platelet Count (auto) 136 10^3/uL (140-450); Red Blood Cells 3.66 10^6/uL (4.0-5.20); White Blood Cell 4.4 10^3/uL (4.4-10.8)
[2020-04-28 07:46] LABS: Red Cell Distribution Width 20.7 % (11.8-14.3)
[2020-04-28] MEDS: cefTRIAXone 1GM/50ML D5W 50 ML IV SCH (09:29)
[2020-04-28] MEDS: INSULIN LANTUS (GLARGINE) 1 /0.01ml (100units/ml) SC SCH (10:00)
[2020-04-28] MEDS: APIXABAN 5 MG TAB PO SCH ×2 (10:00→21:47)
[2020-04-28] MEDS: FAMOTIDINE INJECTION 40 MG in SODIUM CHL 0.9% 100 ML IV SCH (10:00)
[2020-04-28] MEDS: BUDESONIDE (INHALATION) 0.5 MG/2 ML NEB NEB SCH ×2 (10:15→18:55)
--- NOTE | 2020-04-28 10:34 | NUR ---
INITIATED CPAP TRIAL All sedation has been turned off, pt is waking up and attempting to get up in bed and reaching for ETT. Mittens and restraints placed by RN. Initiated CPAP trial as ordered. Pt tolerating well, HR 116, RR 16, SPO2 96%, BP 130/86. No s/s of distress. Notified RN of changes. ABG and weaning parameters to follow in one hour. Will continue to monitor.
--- NOTE | 2020-04-28 10:50 | NUR ---
Called Dr. Castillo to update on pt status on CPAP trial. Pt awake and attempting to get up and pull out ETT even with mittens and restraints placed. Extubation orders received, read back and verified. Will notify RN and carry out.
--- NOTE | 2020-04-28 11:00 | NUR ---
EXTUBATED Extubated pt with RN Brady at bedside. Pt extubated to cool aerosol mask FIO2 35%, tolerating well, HR 122 RR 14, SPO2 98%. Breath sounds clear/dim, no stridor noted. No s/s of distress.
--- NOTE | 2020-04-28 11:31 | NUR ---
Nutrition Followup Notes Wt: 70.0 kg Pt`s intubated sedated with propofol @ 12.383 ml/hr providing 326 kcals from fats. pt is currently NPO for possible CPAP per RN Est Energy needs: 0264-6817 kcals (25-30 kcal/kgBW). Est Protein needs: 71-94 gms/day (1.2-1.6 gm/kgBW). Will continue to monitor and reassess prn. LABS: ALB 2.5 L, AST/ALT 350/416 H GLU 153 H GI: Pt has no BM reported per RN doc BS: 14 mod risk. Refer to wound assessment report for full details. PES: 1) Increased nutrient needs aeb pt is NPO r/t pt with no PO intake 2) Altered nutrition related lab values aeb hyperglycemia, elev A1c, hypocalcemia, mod hypoalbuminemia r/t current/chronic medical condition Comments Will continue to closely monitor pertinent labs, NPO status, skin status and weight trends. Will f/u in 2-3 days Rec: 1) Consider EN support with Glucerna @ 50 ml/hr per MD approval. 2) Gradually advance pt to oral [id number] diet when medically feasible and as tolerated . 3) Refer pt to RD/CDE for nutrition education upon D/C. 4) Continue current plan of care
[2020-04-28] MEDS ORDERED: FLUCONAZOLE 200MG/100ML 100 ML IV ONE (12:30)
[2020-04-28] MEDS: FREE WATER PO SCH ×3 (14:00→21:46)
--- NOTE | 2020-04-28 16:06 | NUR ---
Pt continuously taking off cool aerosol mask. Placed pt on 2lpm nasal cannula, SPO2 98%. Still no stridor noted. No s/s of distress.
--- NOTE | 2020-04-28 18:30 | NUR ---
Patient Transfer Patient transferred from ICU at this time. Patient oriented to unit. No signs or symptoms of distress. Patient denies pain.
--- NOTE | 2020-04-28 19:28 | NUR ---
Closing Shift Note Patient resting in bed. Will endorse care to the [facility] shift lead RN.
--- NOTE | 2020-04-28 19:40 | NUR ---
Opening Shift Note Assumed care of patient, AOX4. No S/S of distress/SOB or pain. Fall and safety precautions in place. Call light within reach. Instructed on POC and to call for assist PRN, patient verbalized understanding and in agreement. Will continue to monitor for changes Q1hr and PRN.
--- NOTE | 2020-04-28 20:45 | NUR ---
Villagomez catheter dc'd Order to discontinue villagomez catheter. Patient educted on indication of procedure and educated on post-removal care/monitoring, patient verbalized understanding and in agreement. Villagomez dc'd with clean technique following deflation of balloon. Patient tolerated well with no complaints of pain. Will continue to monitor.
--- NOTE | 2020-04-28 22:00 | NUR ---
ON-CALL HOSP PAGED PATIENT'S HEART RATE REACHING 140 BPM. TEMP 100.1 F. PATIENT HAS ABNORMAL ELECTROLYTE LEVELS AND CURRENT FREE WATER ORDER (SEE EMAR) NEEDS REVIEW. ON-CALL HOSP PAGED. AWAITING CALL BACK. WILL CONTINUE TO MONITOR.
--- NOTE | 2020-04-28 22:03 | NUR ---
ON-CALL HOSP CALL BACK RECEIVED CALL BACK FROM ON-CALL HOSPITALIST. UPDATED MD ON PATIENT'S CURRENT STATUS. NEW ORDERS RECEIVED, READ BACK AND VERIFIED (SEE NEW ORDERS). WILL CARRY OUT. WILL CONTINUE TO MONITOR.
[2020-04-28] MEDS ORDERED: SOD CHL 0.45% 1,000 ML IV SCH (22:15)
[2020-04-28] MEDS ORDERED: ACETAMINOPHEN 325 MG TAB PO PRN (22:15)
--- NOTE | 2020-04-28 22:28 | NUR ---
NEW MED ORDERS AWAITING CLEARANCE FROM PHARMACY FOR NEW ORDERS. WILL CONTINUE TO MONITOR.
--- NOTE | 2020-04-28 22:46 | NUR ---
TEMP ORAL TEMP 100.1 F. COOLING MEASURES INITIATED. SEE EMAR. WILL CONTINUE TO MONITOR.
[2020-04-28] MEDS: POTASSIUM CHL 20MEQ/100ML 100 ML IV SCH (22:55)
--- NOTE | 2020-04-28 23:46 | NUR ---
TEMP RECHECK PATIENT ORAL TEMP NOW 98 F. WILL CONTINUE TO MONITOR.
[2020-04-29] MEDS: POTASSIUM CHL 20MEQ/100ML 100 ML IV SCH (01:09)
[2020-04-29] MEDS: IPRATROPIUM BROM 0.5 MG/2.5ML INH SOL NEB SCH ×6 (02:00→22:06)
[2020-04-29] MEDS: ALBUTEROL SULF 2.5 MG/0.5ML(0.5%) NEB SOLN NEB SCH ×6 (02:00→22:06)
--- NOTE | 2020-04-29 02:45 | NUR ---
URINE OUTPUT TOTAL URINE OUTPUT SINCE OWENS REMOVAL IS 720ML. WILL CONTINUE TO MONITOR.
[2020-04-29] MEDS: DOXYCYCLINE 100MG/250ML 250 ML IV SCH (03:59)
[2020-04-29 05:00] VITALS: BP 103/55
[2020-04-29] MEDS: ACCU-CHEK COMFORT CURVE STRIP VI SCH ×4 (05:22→23:30)
[2020-04-29] MEDS: InsuLIN REG 1unit/0.01ml Soln (100units/ml) SC SCH ×4 (05:23→23:33)
--- NOTE | 2020-04-29 07:35 | NUR ---
Opening Shift Note Assumed care of patient, AOX4. No S/S of distress/SOB, denies pain at this time. Plan of care discussed and encouraged to call for assistance prn. Fall and safety precautions in place. Call light and phone within reach. Will continue to monitor for changes Q1hr and PRN.
[2020-04-29 08:21] LABS: Basophils # (auto) 0.1 10 ^3/uL (0-0.2); Basophils % (auto) 1.3 % (0.0-2.0); Eosinophils # (auto) 0.3 10 ^3/uL (0-0.8); Eosinophils % (auto) 4.1 % (0.0-7.0); Hematocrit 34.4 % (36.0-46.0); Hemoglobin 11.3 g/dL (12.2-16.2); Lymphocytes # (auto) 2.1 10 ^3/uL (0.4-5.4); Lymphocytes % (auto) 32.5 % (10.0-50.0); Mean Corpuscular Hemoglobin 27.5 pg (28.0-32.0); Mean Corpuscular Volume 83.4 fL (80.0-100.0); Monocytes # (auto) 1.1 10 ^3/uL (0-1.3); Monocytes % (auto) 17.3 % (0.0-12.0); Neutrophils # (auto) 2.9 10 ^3/uL (1.6-8.6); Neutrophils % (auto) 44.8 % (37.0-80.0); Nucleated Red Blood Cells % 0.2 %; Platelet Count (auto) 292 10^3/uL (140-450); Red Blood Cells 4.12 10^6/uL (4.0-5.20); White Blood Cell 6.5 10^3/uL (4.4-10.8)
[2020-04-29 08:24] LABS: Red Cell Distribution Width 20.8 % (11.8-14.3)
[2020-04-29] MEDS: cefTRIAXone 1GM/50ML D5W 50 ML IV SCH (08:26)
[2020-04-29 08:42] LABS: Albumin 2.8 g/dL (3.4-5.0); BUN/Creatinine Ratio 9.5; Calcium 8.4 mg/dL (8.5-10.1)
[2020-04-29 08:45] LABS: Bilirubin, Total 0.7 mg/dL (0.2-1.0); Total Protein 6.7 g/dL (6.4-8.2)
[2020-04-29 09:00] VITALS: BP 128/72
[2020-04-29 09:21] LABS: Potassium 2.7 mmol/L (3.5-5.1)
[2020-04-29] MEDS: APIXABAN 5 MG TAB PO SCH ×2 (09:58→21:19)
[2020-04-29] MEDS ORDERED: FLUCONAZOLE 200MG/100ML 100 ML IV SCH (10:00)
[2020-04-29] MEDS: INSULIN LANTUS (GLARGINE) 1 /0.01ml (100units/ml) SC SCH (10:09)
--- NOTE | 2020-04-29 10:20 | NUR ---
paged Dr. Castillo to inform of low potassium of 2.7
[2020-04-29] MEDS ORDERED: POTASSIUM CHL 20 Meq TABLET PO ONE (10:45)
[2020-04-29] MEDS: BUDESONIDE (INHALATION) 0.5 MG/2 ML NEB NEB SCH ×2 (11:04→22:06)
--- NOTE | 2020-04-29 11:04 | NUR ---
PT having EEG at this time. Unable to give TX at this time. Neb TX held at this time. No sob/resp.distress noted at this time.
[2020-04-29] MEDS ORDERED: POTASSIUM PHOSPHATE 44 MEQ in D5W 5% 250 ML IV ONE (12:15)
--- NOTE | 2020-04-29 12:43 | NUR ---
EEG-ELECTROENCEPHALOGRAM COMPLETED ON 04/29/2020.
[2020-04-29 13:00] VITALS: BP 127/75
[2020-04-29 18:00] VITALS: BP 129/81
--- NOTE | 2020-04-29 19:35 | NUR ---
Opening Shift Note Assumed care of patient, AOX4. No S/S of distress/SOB or pain. Fall and safety precautions and in place. Call light within reach and able to use. Instructed on POC and to call for assist PRN, patient verbalized understanding and in agreement. Will continue to monitor for changes Q1hr and PRN.
[2020-04-29] MEDS: DOXYCYCLINE 100 MG TAB/CAP PO SCH (21:18)
[2020-04-29 22:00] VITALS: BP 127/89
--- NOTE | 2020-04-29 22:00 | NUR ---
PAIN 1/10 PATIENT EXPRESSES PAIN RATED 1/10 USING ADULT SCALE TO GENERALIZED BODY. PATIENT EDUCATED ON PAIN MANAGEMENT TECHNIQUES, INCLUDING MEDICATION FOR RELIEF. PATIENT DECLINES. PATIENT STATES SHE WILL BE OKAY. WILL CONTINUE TO MONITOR.
[2020-04-30] MEDS: IPRATROPIUM BROM 0.5 MG/2.5ML INH SOL NEB SCH ×4 (02:07→14:00)
[2020-04-30] MEDS: ALBUTEROL SULF 2.5 MG/0.5ML(0.5%) NEB SOLN NEB SCH ×4 (02:07→11:27)
[2020-04-30 05:00] VITALS: BP 117/72
--- NOTE | 2020-04-30 05:00 | NUR ---
PAIN 2/10 PATIENT EXPRESSES PAIN RATED 2/10 USING ADULT SCALE TO GENERALIZED BODY. PATIENT EDUCATED ON PAIN MANAGEMENT TECHNIQUES, INCLUDING MEDICATION FOR RELIEF. PATIENT DECLINES. WILL CONTINUE TO MONITOR.
[2020-04-30] MEDS: ACCU-CHEK COMFORT CURVE STRIP VI SCH ×2 (05:31→11:48)
[2020-04-30] MEDS: InsuLIN REG 1unit/0.01ml Soln (100units/ml) SC SCH ×2 (05:32→11:54)
[2020-04-30 06:30] LABS: Potassium 3.4 mmol/L (3.5-5.1)
[2020-04-30 06:39] LABS: Albumin 2.5 g/dL (3.4-5.0); BUN/Creatinine Ratio 14.3; Bilirubin, Total 0.6 mg/dL (0.2-1.0); Calcium 8.3 mg/dL (8.5-10.1); Phosphorus 3.2 mg/dL (2.5-4.90); Total Protein 6.1 g/dL (6.4-8.2)
[2020-04-30] MEDS: cefTRIAXone 1GM/50ML D5W 50 ML IV SCH (08:44)
[2020-04-30] MEDS ORDERED: POTASSIUM CHL 20 Meq TABLET PO ONE (08:45)
[2020-04-30 09:00] VITALS: BP 122/79
[2020-04-30] MEDS ORDERED: APIX5TAB PO (09:43)
[2020-04-30] MEDS ORDERED: FLUC100T34 PO (09:43)
[2020-04-30] MEDS ORDERED: DOX100T PO (09:43)
[2020-04-30] MEDS ORDERED: FLUCONAZOLE 100 MG TAB PO SCH (10:00)
[2020-04-30] MEDS: DOXYCYCLINE 100 MG TAB/CAP PO SCH (10:20)
[2020-04-30] MEDS: APIXABAN 5 MG TAB PO SCH (10:20)
[2020-04-30] MEDS: INSULIN LANTUS (GLARGINE) 1 /0.01ml (100units/ml) SC SCH (10:49)
[2020-04-30] MEDS: BUDESONIDE (INHALATION) 0.5 MG/2 ML NEB NEB SCH (11:27)
[2020-04-30] MEDS ORDERED: IBUPROFEN 400 MG TAB PO PRN (12:15)
--- NOTE | 2020-04-30 12:15 | NUR ---
Nutrition Followup Notes Wt: 60.5 kg Pt`s extubated, weak, but awake and alert with no relatives at bedside when rounded this morning. Pt is with a CCHO 60g diet, appetite is fair aeb ave 50% PO intake over 3 meals per RN doc. Encouraged pt to adhere to medications and to pursue DM nutrition education after D/C. Will continue to monitor PO status, skin status, pertinent labs and weight trends. Will f/u in 3-5 days. Est Energy needs: 0943-2261 kcals (25-30 kcal/kgBW). Est Protein needs: 71-94 gms/day (1.2-1.6 gm/kgBW). Will continue to monitor and reassess prn. LABS: ALB 2.5 L, GLU 184 H, A1c >14.0 H, AST 70 H, ALT 207 H, Alk Phos 177 H GI: Pt had 1 BM on 04/29 per RN doc BS: 19 low risk. Refer to wound assessment report for full details. PES: 1) Increased nutrient needs aeb pt is NPO r/t pt with no PO intake 2) Altered nutrition related lab values aeb hyperglycemia, elev A1c, hypocalcemia, mod hypoalbuminemia r/t current/chronic medical condition Comments Will continue to closely monitor pertinent labs, NPO status, skin status and weight trends. Will f/u in 2-3 days Rec: 1) Consider EN support with Glucerna @ 50 ml/hr per MD approval. 2) Gradually advance pt to oral [id number] diet when medically feasible and as tolerated . 3) Refer pt to RD/CDE for nutrition education upon D/C. 4) Continue current plan of care
--- NOTE | 2020-04-30 12:30 | NUR ---
ELEVATED TEMPERATURE 101.7 DR BAILEY INFORMED. NEW ORDER FOR MOTRIN PLACED. WILL MEDICATED ACCORDINGLY.
[2020-04-30 13:00] VITALS: BP 129/76
[2020-04-30 13:20] VITALS: BP 122/79
--- NOTE | 2020-04-30 14:30 | NUR ---
TEMP REASSESSED. PATIENT'S TEMP IS CURRENTLY 98.6 MD MADE AWARE, WILL PROCEED WITH DISCHARGE.
--- NOTE | 2020-04-30 15:40 | NUR ---
PATIENT DISCHARGED AT THIS TIME. REASSESSED TEMP 98.9 BEFORE DISCHARGE. DISCHARGE PAPERWORK AND FOLLOW INSTRUCTIONS PROVIDED. PATIENT VERBALIZED UNDERSTANDING. LEFT EJ ACCESS AND MIDLINE ACCESS DISCONTINUED, PRESSURE DRESSING APPLIED, PATIENT TOLERATED WELL. TELE BOX #[id number] RETURNED TO ICU.
== END 2020-04-30 15:40 | disposition home or self-care (01) | DRG 130 ==
LOC: ER 05:06 → EDBD 05:06 → OVERFLOW 05:07 → ICU WEST 04-24 14:45 → TELE-CENTR 04-28 18:35
PROVIDERS: ADMIT Hospitalist; ATTEND Internal Medicine
PROC: 5A1955Z Respiratory Ventilation, Greater than 96 Consecutive Hours (ICD-10-PCS; principal; 2020-04-23)
PROC: 0BH17EZ Insertion of Endotracheal Airway into Trachea, Via Natural or Artificial Opening (ICD-10-PCS; 2020-04-23)
DX: J96.01 Acute respiratory failure with hypoxia (principal); J15.211 Pneumonia due to Methicillin susceptible Staphylococcus aureus; E10.11 Type 1 diabetes mellitus with ketoacidosis with coma; E87.0 Hyperosmolality and hypernatremia; E87.6 Hypokalemia; R57.9 Shock, unspecified; G93.41 Metabolic encephalopathy; N17.0 Acute kidney failure with tubular necrosis; E83.39 Other disorders of phosphorus metabolism; E43 Unspecified severe protein-calorie malnutrition; E86.0 Dehydration; Z79.01 Long term (current) use of anticoagulants; Z79.4 Long term (current) use of insulin; Z82.49 Family history of ischemic heart disease and other diseases of the circulatory system; Z80.9 Family history of malignant neoplasm, unspecified; Z83.3 Family history of diabetes mellitus; Z86.711 Personal history of pulmonary embolism; Z91.19 Patient's noncompliance with other medical treatment and regimen; Z91.14 Patient's other noncompliance with medication regimen; Z03.818 Encounter for observation for suspected exposure to other biological agents ruled out; N39.0 Urinary tract infection, site not specified
CPT/HCPCS: 31500; 36415; 36600; 70450; 71045; 71275; 76705; 80048; 80053; 80074; 80076; 80307; 80329; 81001; 81025; 82010; 82150; 82805; 82962; 83036; 83690; 83735; 83930; 84100; 85025; 85610; 85730; 86704; 86706; 86708; 86803; 87040; 87070; 87077; 87086; 87088; 87186; 87205; 87340; 93005; 93970; 94002; 94003; 94640; 95819; 96374; 99291; A4618; G0378; J0330; J0696; J1450; J1815; J2185; J2250; J2704; J3480; J3490; J7060; P9047

== ENCOUNTER 2020-07-15 05:56 | Inpatient (IN) | payer MEDICAID, OTHER ==
[~2020-07-15] VITALS: Ht 170.2 cm; Wt 62.6 kg
[~2020-07-15 05:56] MED LIST changes: +FLUC100T34 PO
[2020-07-15] MEDS ORDERED: SODIUM CHLORIDE 0.9% 2,000 ML IV ONE (06:15)
[2020-07-15] MEDS ORDERED: InsuLIN REG 1unit/0.01ml Soln (100units/ml) IV ONE ×3 (06:15→12:30)
[2020-07-15] MEDS ORDERED: SODIUM CHLORIDE 0.9% 1,000 ML IVB ONE (07:45)
[2020-07-15] MEDS ORDERED: ONDANSETRON HCL 4 MG/2 ML VIAL ONE (09:05)
[2020-07-15 09:06] LABS: Basophils # (auto) 0.1 10 ^3/uL (0-0.2); Basophils % (auto) 0.4 % (0.0-2.0); Eosinophils # (auto) 0 10 ^3/uL (0-0.8); Eosinophils % (auto) 0.1 % (0.0-7.0); Hematocrit 51.6 % (36.0-46.0); Hemoglobin 16.4 g/dL (12.2-16.2); Lymphocytes # (auto) 1.4 10 ^3/uL (0.4-5.4); Lymphocytes % (auto) 8.3 % (10.0-50.0); Mean Corpuscular Hemoglobin 30.9 pg (28.0-32.0); Mean Corpuscular Hgb Conc. 31.8 g/dL (32.0-36.0); Mean Corpuscular Volume 97.2 fL (80.0-100.0); Monocytes % (auto) 5.9 % (0.0-12.0); Neutrophils # (auto) 14.7 10 ^3/uL (1.6-8.6); Neutrophils % (auto) 85.3 % (37.0-80.0); Nucleated Red Blood Cells % 0.2 %; Platelet Count (auto) 355 10^3/uL (140-450); Red Cell Distribution Width 13.9 % (11.8-14.3); White Blood Cell 17.2 10^3/uL (4.4-10.8)
[2020-07-15] MEDS ORDERED: ONDANSETRON HCL 4 MG/2 ML VIAL IV ONE ×2 (09:15)
[2020-07-15 09:21] LABS: Urine Bacteria FEW /hpf (None Seen); Urine Blood TRACE /uL (Negative); Urine Budding Yeast OCCASIONAL /hpf (None Seen); Urine Specific Gravity 1.019 (1.001-1.035); Urine WBC 10 /hpf (0 - 5)
[2020-07-15 09:22] LABS: Alcohol, Urine < 3.0 mg/dL (0-10); Amphetamine Screen, Urine NEGATIVE (NEGATIVE); Barbiturate Scree,Urine NEGATIVE (NEGATIVE); Benzodiazephine Screen, Urine NEGATIVE (NEGATIVE); Cannabinoid Screen, Urine NEGATIVE (NEGATIVE); Cocaine Screen, Urine NEGATIVE (NEGATIVE); Opiate Scree,Urine NEGATIVE (NEGATIVE); Phencyclidine Screen, Urine NEGATIVE (NEGATIVE)
[2020-07-15] MEDS ORDERED: LORazepam 2MG/ML-1ML VIAL ONE ×2 (10:51→16:52)
[2020-07-15] MEDS ORDERED: LORazepam 2MG/ML-1ML VIAL IV ONE ×3 (11:00→22:30)
[2020-07-15] MEDS ORDERED: cefTRIAXone 1GM/50ML D5W 50 ML IV ONE (11:45)
[2020-07-15 12:04] LABS: Albumin 3.6 g/dL (3.4-5.0); Calcium 6.9 mg/dL (8.5-10.1); Potassium 4.2 mmol/L (3.5-5.1)
[2020-07-15 12:10] LABS: BUN/Creatinine Ratio 13.5; Bilirubin, Total 0.5 mg/dL (0.2-1.0); Total Protein 7.8 g/dL (6.4-8.2)
[2020-07-15] MEDS ORDERED: SODIUM BICARBONATE 8.4 % INJ 50ML VIAL IV ONE (12:30)
[2020-07-15] MEDS ORDERED: SODIUM CHLORIDE 0.9% 1,000 ML IV ONE (12:30)
[2020-07-15] MEDS ORDERED: DEXTROSE (50%) 50ML SYRG IV PRN ×2 (12:30→15:00)
[2020-07-15] MEDS: SODIUM CHLORIDE 0.9% 1,000 ML IV SCH ×3 (12:55→21:00)
--- NOTE | 2020-07-15 14:00 | NUR ---
MIDLINE placement Patient/Patient significant other educated on need for MIDLINE placement. All risks and benefits explained and all questions and concerns addressed prior to procedure. Noted past medical history and allergies with no contraindications. Plt counts within acceptable range. 4fr MIDLINE inserted via right brachial vein using [employer] US and Tip Location System. Sterile technique with maximum barrier precautions utilized. Blood return obtained from the single lumen and it flushed easily with NS using proper technique. MIDLINE secured with Stat-lock; biodisc and occlusive dressing applied. Less than 5ml EBL noted during procedure. *Baseline Arm Circumference 27cm at 1cm above insertion site. MIDLINE lot # [id number]. Note:
--- NOTE | 2020-07-15 14:01 | NUR ---
OK to use MIDLINE Hawk Galvan. notified now OK to use MIDLINE.
--- NOTE | 2020-07-15 14:01 | NUR ---
MIDLINE 20cm internally w/ 0cm externally.
[2020-07-15] MEDS: InsuLIN R (HUMAN) 100 UNITS in SODIUM CHL 0.9% 99 ML IV SCH (14:18)
[2020-07-15] MEDS ORDERED: CALCIUM CHL 100MG/ML 500 MG in D5W 5% 100 ML IV ONE (14:30)
[2020-07-15] MEDS ORDERED: INSULIN LANTUS (GLARGINE) 1 /0.01ml (100units/ml) SC ONE (15:00)
[2020-07-15] MEDS ORDERED: InsuLIN R (HUMAN) 100 UNITS in SODIUM CHL 0.9% 99 ML IV SCH (15:00)
[2020-07-15] MEDS ORDERED: PROMETHAZINE HCL 25 MG/ML 1ML IV PRN (15:00)
[2020-07-15] MEDS ORDERED: SODIUM CHLORIDE 0.9% 1,000 ML IV SCH ×5 (15:00→19:00)
[2020-07-15] MEDS ORDERED: NITROGLYCERIN 0.4 MG SL TAB SL PRN (15:00)
[2020-07-15] MEDS ORDERED: MORPHINE SULF INJ 2 MG/ML SYRINGE 1ML IV PRN ×3 (15:00)
[2020-07-15] MEDS: ACCU-CHEK COMFORT CURVE STRIP VI SCH ×6 (15:00→23:03)
[2020-07-15] MEDS ORDERED: IOHEXOL 300 MG/ML 100ML BOTTLE IJ ONE (15:35)
[2020-07-15] MEDS: LORazepam 2MG/ML-1ML VIAL IV PRN (19:23)
[2020-07-15] MEDS: PANTOPRAZOLE 40 MG/10 ML VIAL INJ IV SCH (20:08)
[2020-07-15 20:17] LABS: BUN/Creatinine Ratio 13.8; Calcium 7.9 mg/dL (8.5-10.1)
[2020-07-15 20:27] LABS: Potassium 2.9 mmol/L (3.5-5.1)
[2020-07-15] MEDS ORDERED: D5W 5% 1,000 ML IV ONE (21:15)
[2020-07-15] MEDS: POTASSIUM CHL 20MEQ/100ML 100 ML IV SCH ×2 (21:49→23:28)
[2020-07-15] MEDS ORDERED: FAMOTIDINE (10MG/ML) 2ML VL IV SCH (22:00)
[2020-07-16] VITALS (52 sets, daily range): BP systolic 104–143; BP diastolic 47–100
[2020-07-16] MEDS: ACCU-CHEK COMFORT CURVE STRIP VI SCH ×16 (00:33→23:54)
[2020-07-16 01:06] LABS: Anion Gap 24 (5-15); BUN/Creatinine Ratio 10.9; Blood Urea Nitrogen 11 mg/dL (7-18); Chloride 138 mmol/L (98-107); GFR African American 90 mL/min; GFR Non-African American 74 mL/min; Glucose 160 mg/dL (74-106)
[2020-07-16 01:11] LABS: Sodium 166 mmol/L (136-145)
[2020-07-16 01:12] LABS: Carbon Dioxide 4 mmol/L (21-32); Potassium 2.8 mmol/L (3.5-5.1)
[2020-07-16] MEDS ORDERED: SODIUM BICARBONATE 8.4 % INJ 50ML VIAL IV ONE ×2 (01:30→02:15)
[2020-07-16] MEDS ORDERED: SODIUM BICARBONATE 8.4% INJ 50ML SYRINGE ONE (02:17)
[2020-07-16] MEDS: SODIUM BICARBONATE 50ML VIAL 100 ML in D5W 5% 1,000 ML IV SCH ×2 (02:24→17:29)
[2020-07-16] MEDS: POTASSIUM CHL 20MEQ/100ML 100 ML IV SCH ×3 (02:25→23:02)
[2020-07-16] MEDS: LORazepam 2MG/ML-1ML VIAL IV PRN ×4 (02:25→20:09)
[2020-07-16] MEDS: SODIUM CHLORIDE 0.9% 1,000 ML IV SCH (03:40)
[2020-07-16 05:26] LABS: Basophils # (auto) 0.1 10 ^3/uL (0-0.2); Basophils % (auto) 0.6 % (0.0-2.0); Eosinophils # (auto) 0 10 ^3/uL (0-0.8); Hematocrit 44.1 % (36.0-46.0); Hemoglobin 14.3 g/dL (12.2-16.2); Lymphocytes % (auto) 7.6 % (10.0-50.0); Mean Corpuscular Hemoglobin 30.4 pg (28.0-32.0); Mean Corpuscular Hgb Conc. 32.3 g/dL (32.0-36.0); Mean Corpuscular Volume 94.2 fL (80.0-100.0); Monocytes # (auto) 1.2 10 ^3/uL (0-1.3); Monocytes % (auto) 9.7 % (0.0-12.0); Neutrophils # (auto) 10.2 10 ^3/uL (1.6-8.6); Neutrophils % (auto) 82.1 % (37.0-80.0); Platelet Count (auto) 230 10^3/uL (140-450); Red Blood Cells 4.68 10^6/uL (4.0-5.20); Red Cell Distribution Width 13.7 % (11.8-14.3); White Blood Cell 12.5 10^3/uL (4.4-10.8)
[2020-07-16 05:48] LABS: Albumin 3.7 g/dL (3.4-5.0); Calcium 8.3 mg/dL (8.5-10.1); Potassium 3.1 mmol/L (3.5-5.1)
[2020-07-16 05:51] LABS: Cholesterol 205 mg/dL (< 200); HDL Cholesterol 61 mg/dL (40-59); LDL Cholesterol 111 mg/dL (< 100); Triglycerides 249 mg/dL (< 150)
[2020-07-16 05:53] LABS: Bilirubin, Total 0.6 mg/dL (0.2-1.0); Total Protein 7.7 g/dL (6.4-8.2)
--- NOTE | 2020-07-16 07:15 | NUR ---
Report attempted per ER, per report pt. was tachycardic 160-170's and tachypneic 40-50's, stating that he has tried to have pt. intubated for hours now, dress operator Mane made aware, per senior manufacturing supervisor ELECTRO MECHANICAL ASSEMBLER asked to stabilize somewhat more than present condition, will cont.to await further direction.
[2020-07-16] MEDS ORDERED: LABETALOL HCL 5 MG/ML 4ML SYRINGE IV PRN (08:00)
[2020-07-16] MEDS ORDERED: ACETAMINOPHEN 650 MG RECT SUPP PR ONE (08:25)
[2020-07-16] MEDS ORDERED: ACETAMINOPHEN 650 MG RECT SUPP PR PRN (08:30)
--- NOTE | 2020-07-16 08:45 | NUR ---
Pt. report called per JUAN Raygoza. pt. noted to be more stable now /c HR 120-130's and RR 20-30's, noted infiltrated right arm from midline and PIV, noted IO placed in ER, will assume care of pt upon arrival to ICU.
[2020-07-16] MEDS: PANTOPRAZOLE 40 MG/10 ML VIAL INJ IV SCH ×2 (08:46→21:10)
[2020-07-16] MEDS ORDERED: cefTRIAXone 1GM/50ML D5W 50 ML IV SCH (09:00)
--- NOTE | 2020-07-16 09:00 | NUR ---
Received pt. from ER, SBAR at bedside per [employer], pt. attached to monitor and reading sinus tachycardia 130's, noted on RA and sat 100%, tachypneic at 32, noted only IV access is IO in right mario, will cont.to monitor for any changes, assessment ongoing.
[2020-07-16] MEDS: InsuLIN R (HUMAN) 100 UNITS in SODIUM CHL 0.9% 99 ML IV SCH ×5 (10:00→18:00)
--- NOTE | 2020-07-16 10:15 | NUR ---
Dr. Craft present to see pt, will cont.to anticipate new orders, will cont.to monitor for any changes, assessment ongoing.
[2020-07-16] MEDS ORDERED: POTASSIUM CHLORIDE 40 MEQ, LIDOCAINE 1% (LOCAL ANESTH.) 4 ML in SODIUM CHL 0.9% 250 ML IV ONE (10:30)
[2020-07-16] MEDS ORDERED: VANCOMYCIN PER PHARMACY 0 MG IV SCH (10:45)
[2020-07-16] MEDS: INSULIN LANTUS (GLARGINE) 1 /0.01ml (100units/ml) SC SCH (11:28)
[2020-07-16 12:23] LABS: INR 1.03 (0.9-1.15); Partial Thromboplastin Time 21.4 sec (23.0-31.2)
[2020-07-16 12:59] LABS: BUN/Creatinine Ratio 10.9; Calcium 9.2 mg/dL (8.5-10.1)
--- NOTE | 2020-07-16 13:00 | NUR ---
pt. pulling off lines and tubes, crawling OOB, Dr. Craft notified, new orders received, will cont.to monitor for any changes, call waite in reach, assessment ongoing.
[2020-07-16 13:01] LABS: Potassium 2.5 mmol/L (3.5-5.1)
[2020-07-16] MEDS ORDERED: HALOPERIDOL LACTATE 5 MG/ML INJ VIAL ONE (14:08)
[2020-07-16] MEDS ORDERED: HALOPERIDOL LACTATE 5 MG/ML INJ VIAL IM ONE (14:15)
--- NOTE | 2020-07-16 16:15 | NUR ---
Dr. Arora to bedside for central line placement, will cont.to monitor for any changes, assessment ongoing.
[2020-07-16] MEDS ORDERED: VANCOMYCIN 1GM/250ML 250 ML IV ONE (17:00)
--- NOTE | 2020-07-16 17:00 | NUR ---
Dr. Craft notified of central line status and that pt. remains tachycardic 160's, new orders received, will cont.to monitor for effectiveness, assessment is ongoing.
[2020-07-16] MEDS: D5W/SOD CHL 0.45%/KCL 20MEQ 1,000 ML IV SCH ×2 (17:29→19:01)
[2020-07-16] MEDS ORDERED: SODIUM CHLORIDE 0.9% 3,000 ML IV ONE (17:30)
[2020-07-16] MEDS: PIPERACILLIN-TAZOB 3.375GM 100 ML IV SCH ×3 (17:38→23:46)
--- NOTE | 2020-07-16 19:00 | NUR ---
Opening Shift Note Assumed care of patient, awake and confused. Patient is currently on Non-Behavioral restraints for attempting to climb out of bed and pull on lines and equipment. RN will continue to monitor and assess patient.
--- NOTE | 2020-07-16 19:10 | NUR ---
Noted tachycardic 130's, otherwise stable, pt. report given to JUAN Pitts. Care of pt. assumed per NOC RN. Day shift RN relinquished care and signed off.
--- NOTE | 2020-07-16 19:20 | NUR ---
Dr. Craft notified of pt cont. agitation and anxiety, new orders received, will convey to JUAN Pitts.
--- NOTE | 2020-07-16 19:27 | NUR ---
Insulin drip: BS 297. Insulin drip remains at 3 units per hr per protocol. RN will continue to monitor and assess patient.
--- NOTE | 2020-07-16 19:30 | NUR ---
No distress noted, pt. report given to JUAN Pitts. Care of pt. assumed per NOC RN. Day shift RN relinquished care and signed off.
--- NOTE | 2020-07-16 21:00 | NUR ---
Insulin drip: BS 223. Insulin drip adjusted to 2 units per hr per protocol. RN will continue to monitor and assess patient.
--- NOTE | 2020-07-16 22:00 | NUR ---
Linen change: Linen change was provided to patient and patient repositioned for comfort.
[2020-07-16] MEDS: HALOPERIDOL LACTATE 5 MG/ML INJ VIAL IM PRN (22:02)
[2020-07-16 22:15] LABS: INR 1.15 (0.9-1.15)
--- NOTE | 2020-07-16 22:26 | NUR ---
Insulin drip: BS 221. Insulin drip remains at 2 units per hr per protocol. RN will continue to monitor and assess patient.
[2020-07-16 22:30] LABS: Calcium 7.1 mg/dL (8.5-10.1)
[2020-07-16 22:33] LABS: BUN/Creatinine Ratio 11.4
[2020-07-16 22:36] LABS: Potassium 2.9 mmol/L (3.5-5.1)
--- NOTE | 2020-07-16 22:43 | NUR ---
Hospitalist paged: RN received call from lab regarding critical labs for patient. Hospitalist paged, awaiting call back.
--- NOTE | 2020-07-16 22:50 | NUR ---
Hospitalist returned page: Hospitalist returned page and was informed of labs. New orders received and verified.
--- NOTE | 2020-07-16 23:53 | NUR ---
Insulin drip: BS 189. Insulin drip remains at 2 units per hr per protocol. RN will continue to monitor and assess patient.
[2020-07-17] VITALS (92 sets, daily range): BP systolic 94–128; BP diastolic 41–93
[2020-07-17] MEDS: SODIUM BICARBONATE 50ML VIAL 100 ML in D5W 5% 1,000 ML IV SCH ×3 (00:15→21:35)
[2020-07-17] MEDS: D5W/SOD CHL 0.45%/KCL 20MEQ 1,000 ML IV SCH ×3 (00:15→17:15)
[2020-07-17] MEDS: POTASSIUM CHL 20MEQ/100ML 100 ML IV SCH ×8 (01:00→22:09)
[2020-07-17] MEDS: ACCU-CHEK COMFORT CURVE STRIP VI SCH ×15 (01:25→22:33)
--- NOTE | 2020-07-17 01:25 | NUR ---
Insulin drip: BS 203. Insulin drip remains at 2 units per hr per protocol. RN will continue to monitor and assess patient.
[2020-07-17] MEDS: LORazepam 2MG/ML-1ML VIAL IV PRN (02:55)
--- NOTE | 2020-07-17 03:00 | NUR ---
Insulin drip: BS 221. Insulin drip remains at 2 units per hr per protocol. RN will continue to monitor and assess patient.
[2020-07-17] MEDS ORDERED: InsuLIN REG 1unit/0.01ml Soln (100units/ml) ONE (03:46)
--- NOTE | 2020-07-17 04:17 | NUR ---
Oral care: Oral care was being provided to the patient. Patient began to bite at suction tube. No trauma noted to patient.
--- NOTE | 2020-07-17 04:30 | NUR ---
Insulin drip: BS 164. Insulin drip adjusted to 1.5 units per hr per protocol. RN will continue to monitor and assess patient.
[2020-07-17] MEDS: PIPERACILLIN-TAZOB 3.375GM 100 ML IV SCH ×3 (05:13→17:34)
--- NOTE | 2020-07-17 05:55 | NUR ---
Insulin drip: BS 165. Insulin drip remains at 1.5 units per hr per protocol. RN will continue to monitor and assess patient.
[2020-07-17 06:49] LABS: Basophils # (auto) 0 10 ^3/uL (0-0.2); Basophils % (auto) 0.5 % (0.0-2.0); Eosinophils # (auto) 0.1 10 ^3/uL (0-0.8); Eosinophils % (auto) 1.2 % (0.0-7.0); Hematocrit 31.2 % (36.0-46.0); Hemoglobin 10.7 g/dL (12.2-16.2); Lymphocytes # (auto) 1.3 10 ^3/uL (0.4-5.4); Lymphocytes % (auto) 16.6 % (10.0-50.0); Mean Corpuscular Hemoglobin 30.9 pg (28.0-32.0); Mean Corpuscular Hgb Conc. 34.4 g/dL (32.0-36.0); Mean Corpuscular Volume 89.8 fL (80.0-100.0); Monocytes # (auto) 0.7 10 ^3/uL (0-1.3); Monocytes % (auto) 8.8 % (0.0-12.0); Neutrophils # (auto) 5.7 10 ^3/uL (1.6-8.6); Neutrophils % (auto) 72.9 % (37.0-80.0); Nucleated Red Blood Cells % 0.2 %; Platelet Count (auto) 173 10^3/uL (140-450); Red Blood Cells 3.47 10^6/uL (4.0-5.20); Red Cell Distribution Width 13.6 % (11.8-14.3); White Blood Cell 7.8 10^3/uL (4.4-10.8)
--- NOTE | 2020-07-17 07:05 | NUR ---
Assumed care of pt, report received per JUAN Pitts. No distress noted, pt. reading sinus tachycardia 1teens on monitor, respirations and saturations WNL, will cont.to monitor for any changes, call waite in reach despite restraints, pt. in direct view of NSG station, assessment ongoing.
[2020-07-17 07:08] LABS: Albumin 2.6 g/dL (3.4-5.0); Calcium 7.3 mg/dL (8.5-10.1)
[2020-07-17 07:11] LABS: Bilirubin, Total 0.8 mg/dL (0.2-1.0); Total Protein 5.7 g/dL (6.4-8.2)
[2020-07-17 07:19] LABS: Potassium 2.8 mmol/L (3.5-5.1)
[2020-07-17] MEDS: InsuLIN R (HUMAN) 100 UNITS in SODIUM CHL 0.9% 99 ML IV SCH ×3 (07:30→17:15)
--- NOTE | 2020-07-17 07:30 | NUR ---
Dr. Hicks called for CRITICAL LABS, will cont.to monitor for any changes, assessment ongoing.
--- NOTE | 2020-07-17 07:59 | NUR ---
No call back from Dr. Hicks, new call out to Dr. Sawyer, will cont.to monitor for any changes, assessment ongoing.
[2020-07-17] MEDS: HALOPERIDOL LACTATE 5 MG/ML INJ VIAL IM PRN ×3 (08:29→19:42)
--- NOTE | 2020-07-17 08:30 | NUR ---
No call back from Dr. Sawyer, noted he's not on now per rotary derrick operator, new call out to Dr. Garcia for CRITICAL LAB values, will cont.to monitor for any changes, assessment ongoing.
--- NOTE | 2020-07-17 09:00 | NUR ---
Dr. Craft present and made aware of pt CRITICAL LAB Na 170, and K+ 2.8, new orders received, will cont.to monitor for effectiveness, assessment ongoing.
[2020-07-17] MEDS ORDERED: POTASSIUM CHLORIDE 60 MEQ, LIDOCAINE 1% (LOCAL ANESTH.) 6 ML in SODIUM CHL 0.9% 500 ML IV ONE (09:15)
[2020-07-17] MEDS ORDERED: MICONAZOLE NITRATE 2 % VAGINAL CREAM 45 GM PV ONE (09:15)
[2020-07-17] MEDS: PANTOPRAZOLE 40 MG/10 ML VIAL INJ IV SCH ×2 (10:15→21:13)
[2020-07-17] MEDS: INSULIN LANTUS (GLARGINE) 1 /0.01ml (100units/ml) SC SCH (10:19)
[2020-07-17 10:36] LABS: BUN/Creatinine Ratio 10.1
--- NOTE | 2020-07-17 12:57 | NUR ---
Nutrition Assessment Notes Please refer to link for full assessment notes. Est Energy needs: 7433-2801 kcals (25-30 kcal/kgBW) Est Protein needs: 55-69 gms/day (0.8-1.0 gm/kgBW) Will continue to monitor and reassess prn. Addendum: 07/17/20 at [address] Amended: Links added.
--- NOTE | 2020-07-17 14:00 | NUR ---
Spoke with Dr Craft informed him that the patient has [facility] an it is not a contracted facility with us. Ask if the patient was stable to move to a contracted facility, Stated at this time the patient is not stable to be moved to another facility.
[2020-07-17] MEDS: VANCOMYCIN 1GM/250ML 250 ML IV SCH (14:27)
[2020-07-17 14:32] LABS: Potassium 3.2 mmol/L (3.5-5.1)
[2020-07-17 14:36] LABS: Calcium 7.4 mg/dL (8.5-10.1)
--- NOTE | 2020-07-17 14:55 | NUR ---
Dr. Craft notified of pt. CRITICAL LAB value, new orders received and will implement and monitor for effectiveness of intervention, will cont. monitor for any changes, assessment ongoing.
--- NOTE | 2020-07-17 19:05 | NUR ---
No distress noted, pt. report given to JUAN Pitts. Care of pt. assumed per NOC RN. Day shift RN relinquished care and signed off.
[2020-07-17 19:32] LABS: BUN/Creatinine Ratio 5.6; Calcium 7.1 mg/dL (8.5-10.1)
--- NOTE | 2020-07-17 19:45 | NUR ---
Hospitalist paged: RN received call from lab regarding critical labs for patient. Hospitalist paged, hospitalist returned page immediately and was updated on patient labs and condition. New orders received and verified.
--- NOTE | 2020-07-17 19:45 | NUR ---
Insulin drip: BS 185. Insulin drip remains at 2 units per hr per protocol. RN will continue to monitor and assess patient.
[2020-07-17 19:47] LABS: Potassium 2.8 mmol/L (3.5-5.1)
--- NOTE | 2020-07-17 20:00 | NUR ---
BM: Patient had a large BM. RN provided elie care with another female RN. Complete linen change was provided. Patient tolerated intervention well.
[2020-07-17] MEDS: D5W/SOD CHL 0.45%/KCL 40MEQ 1,000 ML IV SCH (20:23)
--- NOTE | 2020-07-17 21:13 | NUR ---
Insulin drip: BS 186. Insulin drip remains at 2 units per hr per protocol. RN will continue to monitor and assess patient.
[2020-07-17] MEDS: MICONAZOLE NITRATE 2 % VAGINAL CREAM 45 GM PV SCH (21:14)
--- NOTE | 2020-07-17 22:30 | NUR ---
Insulin drip: BS 176. Insulin drip adjusted to 1.5 units per hr per protocol. RN will continue to monitor and assess patient.
[2020-07-18] VITALS (64 sets, daily range): BP systolic 92–128; BP diastolic 51–86
[2020-07-18] MEDS: ACCU-CHEK COMFORT CURVE STRIP VI SCH ×10 (00:04→19:40)
[2020-07-18] MEDS: PIPERACILLIN-TAZOB 3.375GM 100 ML IV SCH ×2 (00:04→06:05)
--- NOTE | 2020-07-18 00:06 | NUR ---
Insulin drip: BS 159. Insulin drip remains at 1.5 units per hr per protocol. RN will continue to monitor and assess patient.
[2020-07-18] MEDS: VANCOMYCIN 1GM/250ML 250 ML IV SCH (00:50)
--- NOTE | 2020-07-18 01:32 | NUR ---
Insulin drip: BS 211. Insulin drip adjusted to 2 units per hr per protocol. RN will continue to monitor and assess patient.
[2020-07-18] MEDS: HALOPERIDOL LACTATE 5 MG/ML INJ VIAL IM PRN (01:33)
--- NOTE | 2020-07-18 01:53 | NUR ---
BM: Patient had a BM. Linen change provided. RN and another female RN provided elie care. Patient tolerated intervention well with no s/s of discomfort or distress.
[2020-07-18] MEDS: D5W/SOD CHL 0.45%/KCL 40MEQ 1,000 ML IV SCH (03:19)
--- NOTE | 2020-07-18 03:24 | NUR ---
Insulin drip: BS 194. Insulin drip remains at 2 units per hr per protocol. RN will continue to monitor and assess patient.
--- NOTE | 2020-07-18 04:30 | NUR ---
Insulin drip: BS 194. Insulin drip remains at 2 units per hr per protocol. RN will continue to monitor and assess patient.
[2020-07-18] MEDS: InsuLIN R (HUMAN) 100 UNITS in SODIUM CHL 0.9% 99 ML IV SCH ×2 (04:36→06:03)
--- NOTE | 2020-07-18 06:00 | NUR ---
Insulin drip: BS 281. Insulin drip adjusted to 3 units per hr per protocol. RN will continue to monitor and assess patient.
[2020-07-18 06:21] LABS: Basophils # (auto) 0.1 10 ^3/uL (0-0.2); Basophils % (auto) 0.8 % (0.0-2.0); Eosinophils # (auto) 0.1 10 ^3/uL (0-0.8); Eosinophils % (auto) 2.3 % (0.0-7.0); Hematocrit 32.1 % (36.0-46.0); Lymphocytes # (auto) 1.7 10 ^3/uL (0.4-5.4); Lymphocytes % (auto) 28.7 % (10.0-50.0); Mean Corpuscular Hemoglobin 30.5 pg (28.0-32.0); Mean Corpuscular Hgb Conc. 34.4 g/dL (32.0-36.0); Mean Corpuscular Volume 88.7 fL (80.0-100.0); Monocytes # (auto) 0.4 10 ^3/uL (0-1.3); Neutrophils # (auto) 3.8 10 ^3/uL (1.6-8.6); Neutrophils % (auto) 62.2 % (37.0-80.0); Nucleated Red Blood Cells % 0.2 %; Platelet Count (auto) 136 10^3/uL (140-450); Red Blood Cells 3.62 10^6/uL (4.0-5.20)
[2020-07-18 06:45] LABS: Albumin 2.3 g/dL (3.4-5.0); Calcium 6.7 mg/dL (8.5-10.1)
[2020-07-18 06:48] LABS: Bilirubin, Total 0.5 mg/dL (0.2-1.0)
[2020-07-18 06:50] LABS: Potassium 2.8 mmol/L (3.5-5.1)
--- NOTE | 2020-07-18 06:55 | NUR ---
Hospitalist paged: RN received call from lab regarding critical potassium of 2.8. Awaiting call back.
--- NOTE | 2020-07-18 07:15 | NUR ---
Hospitalist returned page: Hospitalist returned page and was updated on patient condition and labs. New order obtained and verified.
[2020-07-18] MEDS ORDERED: POTASSIUM CHL 20MEQ/100ML 100 ML IV ONE (07:30)
--- NOTE | 2020-07-18 07:34 | NUR ---
Insulin drip: BS 179. Insulin drip adjusted to 1.5 units per hr per protocol. RN will continue to monitor and assess patient. Addendum: 07/18/20 at 0736 by EMILY DE LA GARZA RN RN BS 173
--- NOTE | 2020-07-18 08:00 | NUR ---
Opening Shift Note Removed restraints from pt at this time. Assessed skin for any break down; none noted. Pt alert and oriented times 2, states she knows her name and knows where she is and is acting appropriately. Will continue to assess mental status and behavior. Pt states she will not pull on any lines. TLC Central line to right femoral infusing insulin gtt, bicarb gtt, and potassium fluids. SEE IV SPREADSHEET and EMAR for details. Sinus Tach of 102 on bedside monitor. Pt on room air with 100% spo2. Dietz catheter in place draining to gravity. bed locked in lowest position with bed alarm on. Pt verbalized how to use call light if needed. Will continue to monitor closely.
--- NOTE | 2020-07-18 09:08 | NUR ---
POC glucose 163. No change to insulin gtt at this time. Will continue gtt at 1.5 units/hr
[2020-07-18] MEDS: INSULIN LANTUS (GLARGINE) 1 /0.01ml (100units/ml) SC SCH (10:00)
--- NOTE | 2020-07-18 10:18 | NUR ---
Dr. Craft at bedside. New orders received.
--- NOTE | 2020-07-18 10:20 | NUR ---
Elimination Pt has been incontinent of black loose stool x3 MD aware. New order for c-diff and stool occult blood test
[2020-07-18] MEDS: PANTOPRAZOLE 40 MG/10 ML VIAL INJ IV SCH ×2 (10:39→21:52)
--- NOTE | 2020-07-18 11:00 | NUR ---
Dr. Ward at bedside. New orders received
[2020-07-18] MEDS ORDERED: D5W/ SOD CHL 0.9%/KCL 20MEQ 0 ML IV ONE (11:01)
[2020-07-18] MEDS: POTASSIUM CHL 20MEQ/100ML 100 ML IV SCH ×3 (11:03→13:21)
[2020-07-18] MEDS ORDERED: levoFLOXacin 750MG 150 ML IV ONE (11:30)
[2020-07-18] MEDS: InsuLIN REG 1unit/0.01ml Soln (100units/ml) SC SCH ×3 (12:08→19:42)
[2020-07-18] MEDS: POTASSIUM CHLORIDE 20 MEQ in D5W 5% 1,000 ML IV SCH ×2 (12:28→20:30)
[2020-07-18 12:29] LABS: Basophils # (auto) 0 10 ^3/uL (0-0.2); Basophils % (auto) 0.6 % (0.0-2.0); Eosinophils # (auto) 0.1 10 ^3/uL (0-0.8); Hematocrit 34.8 % (36.0-46.0); Hemoglobin 11.7 g/dL (12.2-16.2); Lymphocytes % (auto) 33.5 % (10.0-50.0); Mean Corpuscular Hemoglobin 30.2 pg (28.0-32.0); Mean Corpuscular Hgb Conc. 33.5 g/dL (32.0-36.0); Mean Corpuscular Volume 90.1 fL (80.0-100.0); Monocytes # (auto) 0.3 10 ^3/uL (0-1.3); Monocytes % (auto) 5.3 % (0.0-12.0); Neutrophils # (auto) 3.4 10 ^3/uL (1.6-8.6); Neutrophils % (auto) 58.6 % (37.0-80.0); Nucleated Red Blood Cells % 0.3 %; Platelet Count (auto) 138 10^3/uL (140-450); Red Blood Cells 3.87 10^6/uL (4.0-5.20); Red Cell Distribution Width 14.2 % (11.8-14.3); White Blood Cell 5.9 10^3/uL (4.4-10.8)
[2020-07-18 12:41] LABS: Calcium 7.1 mg/dL (8.5-10.1); Potassium 3.1 mmol/L (3.5-5.1)
[2020-07-18 12:43] LABS: BUN/Creatinine Ratio 2.3
--- NOTE | 2020-07-18 13:39 | NUR ---
Spoke with Dr Craft stated the patient is not stable to transfer at this time, due to the needing of potassium replacements
--- NOTE | 2020-07-18 13:43 | NUR ---
Spoke with Dr. Craft. New orders received for downgrade to [facility].
[2020-07-18 19:21] LABS: BUN/Creatinine Ratio 3.1; Calcium 7.2 mg/dL (8.5-10.1); Potassium 3.6 mmol/L (3.5-5.1)
--- NOTE | 2020-07-18 19:24 | NUR ---
Report given to night stocker RN to assume care
--- NOTE | 2020-07-18 19:30 | NUR ---
Opening note Assumed care, patient alert, cooperative, appropriate responses to questions. Unlabored breathing, on room air. Plan of care explained to patient. Will continue to monitor and assess.
--- NOTE | 2020-07-18 20:23 | NUR ---
Blood sugar check Blood glucose 225, covered with 6 units of Regular insulin.
[2020-07-18] MEDS: MICONAZOLE NITRATE 2 % VAGINAL CREAM 45 GM PV SCH (21:52)
[2020-07-18 22:39] LABS: BUN/Creatinine Ratio 1.7; Calcium 7.7 mg/dL (8.5-10.1); Potassium 3.4 mmol/L (3.5-5.1)
[2020-07-19] VITALS (10 sets, daily range): BP systolic 102–129; BP diastolic 68–87
--- NOTE | 2020-07-19 | NUR ---
Blood Sugar check Blood glucose 205, Insulin given per sliding scale
[2020-07-19] MEDS: ACCU-CHEK COMFORT CURVE STRIP VI SCH ×5 (00:03→21:37)
[2020-07-19] MEDS: InsuLIN REG 1unit/0.01ml Soln (100units/ml) SC SCH ×5 (00:30→22:06)
--- NOTE | 2020-07-19 03:35 | NUR ---
Transfer Report Received Report from Hong MARTINEZ.
--- NOTE | 2020-07-19 04:00 | NUR ---
Blood Sugar check Blood glucose 169, Insulin given per sliding scale
--- NOTE | 2020-07-19 04:18 | NUR ---
Transfer note AVERY JOSE transferred to via olinda on environmental monitoring specialist, on room air, unlabored breathing. All patient medications and personal belongings transferred with patient to receiving floor. Patient care transferred to RN.
--- NOTE | 2020-07-19 04:30 | NUR ---
Arrived to Unit Patient arrived to unit, Assumed Care, patient is alert and oriented, patient has a villagomez draining to gravity, clear yellow urine, and triple Lumen femoral central line with D5W/20 meq of K running at 100 ml hour, patient show no s/s of distress and is requesting something to eat, educated patient of her clear liquid diet and that i can offer SF jello. patient verbalized understanding. BP 126/98 HR 116 Temp 98 RR16 O2 99% RA patient has no complaints of pain at this time.
[2020-07-19 04:43] LABS: Basophils # (auto) 0 10 ^3/uL (0-0.2); Basophils % (auto) 0.5 % (0.0-2.0); Eosinophils # (auto) 0.1 10 ^3/uL (0-0.8); Eosinophils % (auto) 2.1 % (0.0-7.0); Hematocrit 35.5 % (36.0-46.0); Lymphocytes # (auto) 2.2 10 ^3/uL (0.4-5.4); Mean Corpuscular Hemoglobin 30.3 pg (28.0-32.0); Mean Corpuscular Hgb Conc. 33.7 g/dL (32.0-36.0); Mean Corpuscular Volume 89.9 fL (80.0-100.0); Monocytes # (auto) 0.4 10 ^3/uL (0-1.3); Monocytes % (auto) 6.9 % (0.0-12.0); Neutrophils # (auto) 2.8 10 ^3/uL (1.6-8.6); Neutrophils % (auto) 50.5 % (37.0-80.0); Nucleated Red Blood Cells % 0.3 %; Platelet Count (auto) 138 10^3/uL (140-450); Red Blood Cells 3.94 10^6/uL (4.0-5.20); Red Cell Distribution Width 13.9 % (11.8-14.3); White Blood Cell 5.5 10^3/uL (4.4-10.8)
--- NOTE | 2020-07-19 04:45 | NUR ---
Morning Care; Provided patient with CHG wipe partial bed bath, provided clean gown and Partial linen change, elie area care and villagomez care provided, call Light with in reach and bed at lowest position with bed rails up X3 with brake applied. Patient again requesting food, Re-educated patient of clear liquid diet and SF jello is what I can offer, patient verbalized understanding Jello provided.
[2020-07-19 05:04] LABS: Albumin 2.4 g/dL (3.4-5.0); Calcium 7.7 mg/dL (8.5-10.1); Potassium 3.3 mmol/L (3.5-5.1)
[2020-07-19 05:09] LABS: BUN/Creatinine Ratio 4.4; Bilirubin, Total 0.5 mg/dL (0.2-1.0); Total Protein 5.4 g/dL (6.4-8.2); Uric Acid 1.5 mg/dL (2.6-6.0)
[2020-07-19] MEDS ORDERED: D5W/SOD CHL 0.45%/KCL 20MEQ 1,000 ML IV ONE (06:15)
--- NOTE | 2020-07-19 06:48 | NUR ---
IV Fluids Called Pharmacy to send correct IVF, IV Fluids pulled from ICU and sent [facility] were incorrect.
--- NOTE | 2020-07-19 08:30 | NUR ---
AM ASSESSMENT COMPLETED. DENIES ANY CP OR S.O. B. PT A+O X4, ON RA ST IN THE LOW 100'S ADMITTED FOR DKA AND ESOPHAGITIS, DENIES ANY GI UPSET, NO N/V/D AT THIS TIME. EDUCATED ON POC, SHE VERBALIZED UNDERSTANDING. MONITOR ALARMS VERIFIED. PT ON CL LIQUID DIET. FC IN PLACE . TLC TO RT FEMORAL WITH DRESSING CDI, ASYMPTOMATIC. PT'S VSS.
[2020-07-19] MEDS ORDERED: POTASSIUM CHL 20 Meq TABLET PO ONE (08:45)
--- NOTE | 2020-07-19 09:00 | NUR ---
DR CHAVIS ROUNDING ON PT. UPDATED ON PT'S CONDITION. MD STATES PT COULD BE DOWNGRADED IF OK WITH PRIMARY MD.
[2020-07-19] MEDS: POTASSIUM CHLORIDE 20 MEQ in D5W 5% 1,000 ML IV SCH ×3 (09:11→21:38)
[2020-07-19] MEDS ORDERED: levoFLOXacin 750MG 150 ML IV SCH (10:00)
[2020-07-19] MEDS: PANTOPRAZOLE 40 MG/10 ML VIAL INJ IV SCH (10:21)
[2020-07-19] MEDS: INSULIN LANTUS (GLARGINE) 1 /0.01ml (100units/ml) SC SCH (10:25)
--- NOTE | 2020-07-19 10:33 | NUR ---
DR. BEATTY IN TO SEE PT. HE TOLD PT THAT SHE DOESN'T NEED TO BE SCOPED SINCE SHE IS TOLERATING A REGULAR DIET. JUST TO CONTINUE PPI AND TO CONTROL HER BLOOD SUGARS, TO PREVENT FURTHER HOSPITALIZATIONS. PT VERBALIZED UNDERSTANDING.
--- NOTE | 2020-07-19 12:00 | NUR ---
OWENS CATHETER REMOVER PT HAD 2400 UOP PRIOR TO REMOVAL.
[2020-07-19] MEDS ORDERED: POTASSIUM PHOSPHATE 44 MEQ in D5W 5% 250 ML IV ONE (12:45)
[2020-07-19] MEDS ORDERED: DEXTROSE (50%) 50ML SYRG IV PRN ×2 (13:15→23:45)
--- NOTE | 2020-07-19 14:00 | NUR ---
PT VOIDED ABOUT 1000 ML OF URINE MIXED WITH A LARGE PASTY BM. S/P FC BEING REMOVED.
--- NOTE | 2020-07-19 14:59 | NUR ---
Nutrition Followup Wt 69.0 kg Pt was sleeping with no family by beDside. pt with improving DKA. pt is now advanced to CCHO 60 gm diet with adequate PO of 75% 1 per RN doc Est Energy needs: 3679-4729 kcals (25-30 kcal/kgBW), Est Protein needs: 55-69 gms/day (0.8-1.0 gm/kgBW) Will continue to monitor and reassess prn. Labs: GLU 157 H CA 7.7 L ALB 2.4 L BM: Pt with diarr per RN note Skin: BS 14 mod risk, full details in long term acute care registered nurse note PES: 1) Increased nutrient needs aeb pt is NPO r/t pt with no PO intake 2) Food and nutrition knowledge deficit hyperglycemia, elev A1c, pt with DKA, Pancreatitis r/t dietary non-compliance 3) altered nutrition related lab values aeb hyperglycemia, elev A1c, hypernatremia, hypokalemia, hypoalbuminemia r/t current/chronic medical condition Comments: Will continue to monitor PO status, skin status, pertinent labs and weight trends. Will f/u in 3-5 days. Rec: 1) Refer pt to RD for nutrition education upon D/C. 2) Continue current plan of care
[2020-07-19] MEDS: NEUTRA-PHOS TABLET PO SCH ×3 (15:28→21:37)
[2020-07-19] MEDS ORDERED: VANCOMYCIN HCL 125MG/5ML ORAL SOL PO ONE (15:30)
[2020-07-19 15:31] LABS: Protein, Urine 7.4 mg/dL (0.0-11.9)
--- NOTE | 2020-07-19 15:51 | NUR ---
P T POITIVE FOR C DIFF DR BAILEY AWARE. SHE'LL START PT ON PO VANCOMYCIN
[2020-07-19] MEDS ORDERED: InsuLIN REG 1unit/0.01ml Soln (100units/ml) SC SCH (17:00)
--- NOTE | 2020-07-19 19:00 | NUR ---
REPORT GIVEN TO CORRECTION WORKER.
--- NOTE | 2020-07-19 19:40 | NUR ---
Opening Shift Note Received report from day shift RN Susan. Pt states she asked her little sister to call EMS on 07/15 because she wasn't feeling good. Pt came to the ER and was diagnosed with DKA. Pt has a PMH of DM I. Pt is currently AAOx4 OOB to bedside commode. Pt denies any pain at this time. Pt has no complaints at this time. Pt back into bed safely, steady gait. Bed locked at lowest position, side rails are up, Call light placed within reach. Pt instructed to call if she needs anything. Pt verbalized understanding. Will continue to monitor.
[2020-07-19] MEDS: MICONAZOLE NITRATE 2 % VAGINAL CREAM 45 GM PV SCH (21:37)
[2020-07-19] MEDS: PANTOPRAZOLE 40 MG TAB PO SCH (21:37)
[2020-07-19] MEDS: metroNIDAZOLE 500MG/100ML 100 ML IV SCH (21:37)
--- NOTE | 2020-07-19 22:00 | NUR ---
Paged hospitalist regarding high blood sugar of 425
--- NOTE | 2020-07-19 23:20 | NUR ---
Hospitalist call back discussed pt status and POC and high blood sugar reading. New orders received, will input.
--- NOTE | 2020-07-19 23:38 | NUR ---
Report attempted Per community service organization director, RN is in a patients room. Awaiting call back
--- NOTE | 2020-07-19 23:54 | NUR ---
Report given Report given to Radha. Discussed pt status and POC. Answered all questions and concerns.
[2020-07-20] VITALS: BP 108/74
--- NOTE | 2020-07-20 00:10 | NUR ---
TELE Box requested
[2020-07-20] MEDS: InsuLIN REG 1unit/0.01ml Soln (100units/ml) SC SCH ×6 (00:15→21:36)
[2020-07-20] MEDS: ACCU-CHEK COMFORT CURVE STRIP VI SCH ×6 (00:15→21:33)
--- NOTE | 2020-07-20 00:53 | NUR ---
Telemetry admit to TELE 201 from [facility] AVERY JOSE admitted to Telemetry unit after SBAR given to Radha. Taken to room 201 via wheelchair by Jennifer MARTINEZ. Patient oriented to unit, room, bed, and unit policies regarding patient care and visiting hours. Patient now on tele box. Patient encouraged to call if she needs something. All questions and concerns addressed, patient verbalized understanding.
[2020-07-20 05:00] VITALS: BP 107/66
[2020-07-20] MEDS: metroNIDAZOLE 500MG/100ML 100 ML IV SCH ×3 (06:14→21:33)
--- NOTE | 2020-07-20 07:00 | NUR ---
Opening Shift Note Assumed care of patient, awake and alert and eating breakfast upon entering the room. Contact precautions in place. No S/S of distress/SOB or pain. Triple lumen in tact with moderate amount of drainage on dressing. Instructed on POC and to call for assist PRN. Patient verbalized understanding. Bed is in lowest position and the call light is within reach of the patient. Will continue to monitor for changes Q1hr and PRN.
[2020-07-20] MEDS: NEUTRA-PHOS TABLET PO SCH (08:23)
[2020-07-20 08:25] VITALS: BP 122/70
[2020-07-20 08:47] LABS: BUN/Creatinine Ratio 23.9; Calcium 7.8 mg/dL (8.5-10.1); Potassium 3.5 mmol/L (3.5-5.1)
[2020-07-20] MEDS: PANTOPRAZOLE 40 MG TAB PO SCH ×2 (09:37→21:34)
[2020-07-20] MEDS: INSULIN LANTUS (GLARGINE) 1 /0.01ml (100units/ml) SC SCH (09:47)
[2020-07-20] MEDS ORDERED: levoFLOXacin 500 MG TAB PO SCH (10:00)
--- NOTE | 2020-07-20 11:20 | NUR ---
Dr. Castillo rounding Dr. Castillo rounding on the patient. Updated on elevated blood sugars 408 and reassessed at 420. Orders given and carried out accordingly.
[2020-07-20] MEDS ORDERED: POTASSIUM CHL 10 Meq TABLET PO ONE (11:30)
[2020-07-20 12:30] VITALS: BP 116/68
[2020-07-20] MEDS: VANCOMYCIN HCL 125MG/5ML ORAL SOL GT SCH (12:33)
--- NOTE | 2020-07-20 14:10 | NUR ---
The patient 20-year-old female, patient is alert and oriented. Patient cognitive abilities are intact, patient is independent for ADLs. Patient lives with her sibling Ariana Pratt. Patient receives income from [employer] resource from [employer]. Patient has history with diabetes. Per patient sister Ariana Pratt patient is not receptive to take diabetic medications daily. Patient support system is her sister Ariana. Post discharge patient is expected to return to her home with sister. Intervention goals: Discharge planning for patient to return home post discharge. Patient has all diabetic supplies at this time. Patient has no discharge needs. Addendum: 07/20/20 at 1412 by ARLETH SANCHEZ Amended: Links added.
--- NOTE | 2020-07-20 15:00 | NUR ---
Rounding Patient continually asks for snacks in between meals and was educated on blood sugars and the need to hold extra feedings. BILINGUAL BRANCH MANAGER has also been made aware. Will continue to monitor.
--- NOTE | 2020-07-20 15:55 | NUR ---
Faxed clinical packet to [facility] [phone] requesting a bed for the patient .
--- NOTE | 2020-07-20 16:11 | NUR ---
Called [facility] Transfer [facility] [phone], spoke with Dustin coordinator gave verbal update on the patient and requested that clinicals be faxed stated the patient has been there before, Clinical packet faxed to [phone], with call back information for [phone] ext [phone]
--- NOTE | 2020-07-20 16:22 | NUR ---
Called [facility] [phone] and spoke with Davon real estate consultant Nurse and stated they do not have any beds at this time.
--- NOTE | 2020-07-20 16:33 | NUR ---
Called [facility] spoke with Koffi train dispatcher and placed the patient on Will Call
[2020-07-20 16:45] VITALS: BP 114/67
--- NOTE | 2020-07-20 18:49 | NUR ---
[facility] called [facility] was called. Spoke with Claudio who is a family service caseworker assisting with the transfer of the patient. Information was requested and given along with a face sheet. Requesting to speak with Dr. Castillo. Will page or leave a message for her to call back with number. .
--- NOTE | 2020-07-20 19:30 | NUR ---
OPENING SHIFT NOTE Pt is resting in bed awake and alert x4, resp rate is even and unlabored. No s/s of any distress noted at this time. POC discussed with pt and pt verbalizes understanding. Bed is low, wheels are locked , and call light is with in reach.
--- NOTE | 2020-07-20 21:11 | NUR ---
KWESI FROM [facility] CALLED TO SAY NO BED AVAILABLE FOR PT AT THIS TIME R/T FULL CAPACITY.
[2020-07-20] MEDS: MICONAZOLE NITRATE 2 % VAGINAL CREAM 45 GM PV SCH (21:34)
[2020-07-20 22:00] VITALS: BP 126/72
[2020-07-20] MEDS ORDERED: INSULIN LANTUS (GLARGINE) 1 /0.01ml (100units/ml) SC SCH (22:00)
[2020-07-21] MEDS: ACCU-CHEK COMFORT CURVE STRIP VI SCH ×4 (00:54→12:00)
[2020-07-21] MEDS: InsuLIN REG 1unit/0.01ml Soln (100units/ml) SC SCH ×4 (00:57→12:00)
[2020-07-21 05:25] VITALS: BP 127/76
[2020-07-21] MEDS: metroNIDAZOLE 500MG/100ML 100 ML IV SCH (05:39)
--- NOTE | 2020-07-21 07:00 | NUR ---
Opening Shift Note Assumed care of patient, awake, alert eating breakfast upon entering the room. No S/S of distress/SOB or pain. Triple lumen flushed, patent and in tact. Instructed on POC. Patient verbalized understanding. Patient confirmed she has been seen at [facility] since she was 9. SS updated and are working to find placement for transfer. Instructed on POC and to call for assist PRN. Bed is in lowest position and the call light is within reach of the patient. Will continue to monitor for changes Q1hr and PRN.
[2020-07-21 08:12] VITALS: BP 116/74
[2020-07-21] MEDS: VANCOMYCIN HCL 125MG/5ML ORAL SOL GT SCH (08:31)
[2020-07-21] MEDS ORDERED: ENOXAPARIN SOD 40 MG/0.4 ML SYRINGE SC SCH (10:00)
--- NOTE | 2020-07-21 10:05 | NUR ---
Dr. Jonathan thomson Spoke with Dr. Castillo concerning placement. Patient is discharged home and has an appointment with PCP on Aug 29.
--- NOTE | 2020-07-21 10:23 | NUR ---
Called [facility], spoke with the Kourtney ruvalcaba for admissions, gave verbal update on the patient, faxed to [phone] face sheet, transfer order, COVID results and contact information for Dr Castillo and my self, the number for the unit that the patient is on.
[2020-07-21] MEDS: PANTOPRAZOLE 40 MG TAB PO SCH (10:41)
[2020-07-21] MEDS: INSULIN LANTUS (GLARGINE) 1 /0.01ml (100units/ml) SC SCH (10:46)
[2020-07-21 11:14] VITALS: BP 116/74
--- NOTE | 2020-07-21 12:30 | NUR ---
Discharged Home Discharge instructions given as ordered. Encourage to follow up with PMD as instructed at [facility] on the 29 of August. All questions and concerns addressed. Patient verbalized understanding. Medication reconciliation form completed and copy given to patient. Central line removed with catheter intact, pressure dressing applied. Optifoam changed and pictures were taken of the right arm. Patient taken to sister's vehicle via wheelchair with all personal belongings, accompanied by staff. No distress noted at time of departure.
[2020-07-21] MEDS ORDERED: METR500T PO (12:51)
== END 2020-07-21 12:25 | disposition short-term general hospital (02) | DRG 420 ==
LOC: ER 05:56 → EDBD 05:56 → TELE 05:57 → ICU WEST 07-16 08:55 → DOU IN ICU 07-19 04:08 → TELE-CENTR 07-20 00:50 → CENTRAL 07-20 17:24
PROVIDERS: ADMIT Internal Medicine; ATTEND Internal Medicine
PROC: 0XJ Anatomical Regions, Upper Extremities, Inspection (ICD-10-PCS; principal; 2020-07-15)
DX: E10.10 Type 1 diabetes mellitus with ketoacidosis without coma (principal); N17.0 Acute kidney failure with tubular necrosis; G93.41 Metabolic encephalopathy; E83.51 Hypocalcemia; E87.0 Hyperosmolality and hypernatremia; Z20.828 Contact with and (suspected) exposure to other viral communicable diseases; B37.3 Candidiasis of vulva and vagina; B96.89 Other specified bacterial agents as the cause of diseases classified elsewhere; E86.0 Dehydration; K20.90 Esophagitis, unspecified without bleeding; E87.6 Hypokalemia; E78.5 Hyperlipidemia, unspecified; E10.22 Type 1 diabetes mellitus with diabetic chronic kidney disease; N39.0 Urinary tract infection, site not specified; K46.9 Unspecified abdominal hernia without obstruction or gangrene; I12.9 Hypertensive chronic kidney disease with stage 1 through stage 4 chronic kidney disease, or unspecified chronic kidney disease; M10.9 Gout, unspecified; N18.9 Chronic kidney disease, unspecified; Z79.4 Long term (current) use of insulin; Z80.9 Family history of malignant neoplasm, unspecified; Z82.49 Family history of ischemic heart disease and other diseases of the circulatory system; Z83.3 Family history of diabetes mellitus; Z91.14 Patient's other noncompliance with medication regimen
CPT/HCPCS: 36415; 36600; 71045; 74177; 80048; 80053; 80061; 80202; 80307; 81001; 81025; 82010; 82043; 82150; 82570; 82805; 82962; 83036; 83690; 83735; 84100; 84156; 84550; 84702; 85025; 85610; 85730; 87040; 87081; 87086; 87426; 87493; 93005; 93971; 96361; 96365; 96375; 99291; C9113; G0378; J0696; J1815; J1956; J2001; J2405; J2543; J3480; J3490; J7060

== ENCOUNTER 2020-07-24 13:14 | Inpatient (IN) | payer MEDICAID, OTHER ==
[~2020-07-24] VITALS: Ht 160 cm; Wt 64.1 kg
[~2020-07-24 13:14] MED LIST changes: -DOX100T PO; -FLUC100T34 PO; +METR500T PO; -PANT40TA2 PO
[2020-07-24] MEDS ORDERED: SODIUM CHLORIDE 0.9% 1,000 ML IV ONE (13:30)
[2020-07-24] MEDS ORDERED: DEXTROSE (50%) 50ML SYRG IV PRN (13:45)
[2020-07-24] MEDS ORDERED: INSULIN LANTUS (GLARGINE) 1 /0.01ml (100units/ml) SC ONE (13:45)
[2020-07-24] MEDS ORDERED: InsuLIN REG 1unit/0.01ml Soln (100units/ml) ONE (13:58)
[2020-07-24 14:01] LABS: Hemoglobin 13.3 g/dL (12.2-16.2)
[2020-07-24] MEDS: InsuLIN R (HUMAN) 100 UNITS in SODIUM CHL 0.9% 99 ML IV SCH (14:02)
[2020-07-24 14:03] LABS: Hematocrit 43.4 % (36.0-46.0); Mean Corpuscular Hemoglobin 31.1 pg (28.0-32.0); Mean Corpuscular Hgb Conc. 30.6 g/dL (32.0-36.0); Mean Corpuscular Volume 101.5 fL (80.0-100.0); Platelet Count (auto) 599 10^3/uL (140-450); Red Blood Cells 4.28 10^6/uL (4.0-5.20); Red Cell Distribution Width 15.2 % (11.8-14.3); White Blood Cell 25.3 10^3/uL (4.4-10.8)
[2020-07-24] MEDS: SODIUM CHLORIDE 0.9% 1,000 ML IV SCH ×3 (14:04→20:19)
[2020-07-24 14:18] LABS: Albumin 3.6 g/dL (3.4-5.0); Anion Gap 34 (5-15); Blood Urea Nitrogen 25 mg/dL (7-18); Calcium 9.2 mg/dL (8.5-10.1); Chloride 95 mmol/L (98-107); Magnesium 3.1 mg/dL (1.6-2.6); Potassium 4.6 mmol/L (3.5-5.1); Sodium 134 mmol/L (136-145)
[2020-07-24 14:19] LABS: Band Neutrophils % (manual) 0; Basophils % (manual) 0 (0.0-2.0); Blast Cells 0; Eosinophils % (manual) 0 (0-7); Promyelocytes % 0; Reactive Lymphocytes 0
[2020-07-24 14:26] LABS: Alanine Aminotransferase 24 U/L (13-56); Alkaline Phosphatase 198 U/L (45-117); Aspartate Aminotransferase 23 U/L (15-37); BUN/Creatinine Ratio 19.4; Bilirubin, Total 0.6 mg/dL (0.2-1.0); GFR African American 68 mL/min; GFR Non-African American 56 mL/min; Phosphorus 7.8 mg/dL (2.5-4.90); Total Protein 8.5 g/dL (6.4-8.2)
[2020-07-24] MEDS ORDERED: SODIUM BICARB IV ONE ×2 (14:30)
[2020-07-24] MEDS ORDERED: [UNRECOGNIZED DRUG - OTHER] IV ONE ×2 (14:30)
[2020-07-24 14:34] LABS: Carbon Dioxide 5 mmol/L (21-32); Glucose 808 mg/dL (74-106)
[2020-07-24 14:35] LABS: Lymphocytes % (manual) 23 (10.0-50.0); Metamyelocytes % 4; Monocytes % (manual) 11 (0-12); Myelocytes % 2
[2020-07-24] MEDS ORDERED: SODIUM BICARB 50ML SYR 150 ML in SOD CHL 0.45% 1,000 ML IV ONE (14:45)
[2020-07-24] MEDS ORDERED: SODIUM BICARBONATE 8.4 % INJ 50ML VIAL IV ONE ×4 (15:01→15:45)
[2020-07-24] MEDS: ACCU-CHEK COMFORT CURVE STRIP VI SCH ×6 (15:10→22:55)
[2020-07-24] MEDS ORDERED: PIPERACILLIN-TAZOB 3.375GM 100 ML IV ONE (15:30)
[2020-07-24 15:48] LABS: Urine Bacteria FEW /hpf (None Seen); Urine Blood 3+ /uL (Negative); Urine Specific Gravity 1.017 (1.001-1.035); Urine WBC 1 /hpf (0 - 5)
[2020-07-24] MEDS ORDERED: SODIUM CHLORIDE 0.9% 2,000 ML IV ONE (16:45)
[2020-07-24] MEDS ORDERED: MORPHINE SULF INJ 2 MG/ML SYRINGE 1ML IV PRN ×3 (16:45→18:15)
[2020-07-24] MEDS ORDERED: cefTRIAXone 1GM/50ML D5W 50 ML IV ONE (16:45)
[2020-07-24] MEDS ORDERED: NITROGLYCERIN 0.4 MG SL TAB SL PRN ×2 (16:45→18:15)
[2020-07-24] MEDS: SODIUM BICARBONATE 8.4 % INJ 50ML VIAL IV ONE ×2 (16:51→17:07)
[2020-07-24 16:59] LABS: Lactic Acid w/Reflex 2.9 mmol/L (0.4-2.0)
[2020-07-24] MEDS ORDERED: IBUP800T24 PO ×2 (17:00→17:57)
[2020-07-24] MEDS ORDERED: SODIUM BICARBONATE 8.4% INJ 50ML SYRINGE ONE (17:07)
[2020-07-24] MEDS ORDERED: SODIUM CHLORIDE 0.9% 1,000 ML IV SCH (17:45)
[2020-07-24] MEDS ORDERED: AMOX500C2 PO (17:51)
[2020-07-24] MEDS ORDERED: INSU100I33 SC (17:52)
[2020-07-24] MEDS ORDERED: INSLANTI SC (17:55)
[2020-07-24] MEDS ORDERED: ALUM & MAG HYDROX-SIMETH LIQ(MAALOX) 30 ML PO PRN (18:15)
[2020-07-24] MEDS ORDERED: ACETAMINOPHEN 325 MG TAB PO PRN (18:15)
[2020-07-24] MEDS ORDERED: DOCUSATE SOD 100 MG CAP PO PRN (18:15)
[2020-07-24] MEDS ORDERED: LORazepam 0.5 MG TAB PO PRN (18:15)
[2020-07-24] MEDS ORDERED: ONDANSETRON HCL 4 MG/2 ML VIAL IV PRN (18:15)
[2020-07-24] MEDS ORDERED: HYDROcodone-ACET 5/325MG TAB PO PRN (18:15)
[2020-07-24 18:53] LABS: Albumin 2.3 g/dL (3.4-5.0); Potassium 3.3 mmol/L (3.5-5.1)
[2020-07-24 18:56] LABS: Bilirubin, Total 0.4 mg/dL (0.2-1.0); Cholesterol 144 mg/dL (< 200); Total Protein 5.7 g/dL (6.4-8.2)
[2020-07-24 19:01] LABS: HDL Cholesterol 27 mg/dL (40-59); Triglycerides 467 mg/dL (< 150)
[2020-07-24 19:02] LABS: Calcium 5.1 mg/dL (8.5-10.1)
[2020-07-24 19:11] LABS: Alcohol, Urine < 3.0 mg/dL (0-10); Amphetamine Screen, Urine NEGATIVE (NEGATIVE); Barbiturate Scree,Urine NEGATIVE (NEGATIVE); Benzodiazephine Screen, Urine NEGATIVE (NEGATIVE); Cannabinoid Screen, Urine NEGATIVE (NEGATIVE); Cocaine Screen, Urine NEGATIVE (NEGATIVE); Opiate Scree,Urine NEGATIVE (NEGATIVE); Phencyclidine Screen, Urine NEGATIVE (NEGATIVE)
[2020-07-24] MEDS ORDERED: POTASSIUM CHLORIDE 20 MEQ, LIDOCAINE 1% (LOCAL ANESTH.) 2 ML in SODIUM CHL 0.9% 100 ML IV ONE (19:15)
[2020-07-24] MEDS ORDERED: CALCIUM GLUC 4.65meq/50ml D5AE 50 ML IV ONE (19:15)
[2020-07-25] MEDS: ACCU-CHEK COMFORT CURVE STRIP VI SCH ×14 (00:09→20:00)
[2020-07-25 02:10] LABS: BUN/Creatinine Ratio 14.6
[2020-07-25 02:11] LABS: Potassium 2.9 mmol/L (3.5-5.1)
[2020-07-25] MEDS ORDERED: POTASSIUM CHL 20 Meq TABLET PO ONE (02:30)
[2020-07-25] MEDS ORDERED: CALCIUM GLUC 4.65meq/50ml D5AE 50 ML IV ONE (02:30)
[2020-07-25] MEDS: SODIUM CHLORIDE 0.9% 1,000 ML IV SCH (02:49)
[2020-07-25] MEDS ORDERED: POTASSIUM CHL 20MEQ/100ML 100 ML IV ONE (03:00)
[2020-07-25 07:59] LABS: BUN/Creatinine Ratio 5.7; Calcium 6.7 mg/dL (8.5-10.1)
[2020-07-25 08:07] LABS: Potassium 2.9 mmol/L (3.5-5.1)
[2020-07-25] MEDS: POTASSIUM CHL 20MEQ/100ML 100 ML IV SCH ×4 (08:45→22:00)
[2020-07-25] MEDS: cefTRIAXone 1GM/50ML D5W 50 ML IV SCH (09:06)
[2020-07-25] MEDS: D5W/SOD CHL 0.45%/KCL 40MEQ 1,000 ML IV SCH ×2 (09:39→18:45)
[2020-07-25] MEDS: InsuLIN R (HUMAN) 100 UNITS in SODIUM CHL 0.9% 99 ML IV SCH (09:47)
[2020-07-25] MEDS: POTASSIUM CHL 20 Meq TABLET PO SCH (09:54)
[2020-07-25] MEDS ORDERED: INSULIN LANTUS (GLARGINE) 1 /0.01ml (100units/ml) SC SCH ×2 (10:00)
[2020-07-25 14:19] LABS: BUN/Creatinine Ratio 1.7; Calcium 6.6 mg/dL (8.5-10.1)
[2020-07-25] MEDS: metroNIDAZOLE 500MG/100ML 100 ML IV SCH ×2 (14:20→22:00)
[2020-07-25] MEDS ORDERED: MAGNESIUM SULFATE 1GM/100ML 100 ML IV ONE (16:30)
[2020-07-25] MEDS ORDERED: POTASSIUM PHOSPHATE 22 MEQ in SODIUM CHL 0.9% 100 ML IV ONE (16:30)
[2020-07-25] MEDS ORDERED: DEXTROSE (50%) 50ML SYRG IV PRN (16:30)
[2020-07-25] MEDS: InsuLIN REG 1unit/0.01ml Soln (100units/ml) SC SCH (20:00)
[2020-07-25 23:10] LABS: Anion Gap 12 (5-15); Blood Urea Nitrogen < 1 mg/dL (7-18); Calcium 7.6 mg/dL (8.5-10.1); Carbon Dioxide 21 mmol/L (21-32); Chloride 110 mmol/L (98-107); Glucose 114 mg/dL (74-106); Potassium 3.7 mmol/L (3.5-5.1); Sodium 143 mmol/L (136-145)
[2020-07-25 23:13] LABS: BUN/Creatinine Ratio 1.7; GFR African American 164 mL/min; GFR Non-African American 135 mL/min
[2020-07-26] MEDS: InsuLIN REG 1unit/0.01ml Soln (100units/ml) SC SCH ×10 (04:40→23:56)
[2020-07-26] MEDS: ACCU-CHEK COMFORT CURVE STRIP VI SCH ×11 (04:40→23:56)
[2020-07-26] MEDS: D5W/SOD CHL 0.45%/KCL 40MEQ 1,000 ML IV SCH ×2 (04:41→14:51)
[2020-07-26 05:32] LABS: Basophils # (auto) 0 10 ^3/uL (0-0.2); Basophils % (auto) 0.3 % (0.0-2.0); Eosinophils # (auto) 0.1 10 ^3/uL (0-0.8); Eosinophils % (auto) 0.6 % (0.0-7.0); Hemoglobin 9.8 g/dL (12.2-16.2); Lymphocytes # (auto) 1.4 10 ^3/uL (0.4-5.4); Lymphocytes % (auto) 15.4 % (10.0-50.0); Mean Corpuscular Hemoglobin 31.3 pg (28.0-32.0); Mean Corpuscular Hgb Conc. 33.8 g/dL (32.0-36.0); Mean Corpuscular Volume 92.5 fL (80.0-100.0); Monocytes # (auto) 1.1 10 ^3/uL (0-1.3); Monocytes % (auto) 12.7 % (0.0-12.0); Neutrophils # (auto) 6.4 10 ^3/uL (1.6-8.6); Nucleated Red Blood Cells % 0.2 %; Platelet Count (auto) 238 10^3/uL (140-450); Red Blood Cells 3.13 10^6/uL (4.0-5.20); Red Cell Distribution Width 13.9 % (11.8-14.3)
[2020-07-26 05:55] LABS: Albumin 2.5 g/dL (3.4-5.0); Anion Gap 11 (5-15); Blood Urea Nitrogen < 1 mg/dL (7-18); Carbon Dioxide 21 mmol/L (21-32); Chloride 110 mmol/L (98-107); Glucose 167 mg/dL (74-106); Magnesium 2.2 mg/dL (1.6-2.6); Potassium 3.5 mmol/L (3.5-5.1); Sodium 142 mmol/L (136-145)
[2020-07-26] MEDS: metroNIDAZOLE 500MG/100ML 100 ML IV SCH ×3 (05:56→22:15)
[2020-07-26 05:58] LABS: Alanine Aminotransferase 21 U/L (13-56); Alkaline Phosphatase 135 U/L (45-117); Aspartate Aminotransferase 31 U/L (15-37); BUN/Creatinine Ratio 2.1; Bilirubin, Total 0.4 mg/dL (0.2-1.0); GFR African American 212 mL/min; GFR Non-African American 175 mL/min; Phosphorus 1.5 mg/dL (2.5-4.90)
[2020-07-26] MEDS ORDERED: DEXTROSE (50%) 50ML SYRG IV PRN (07:45)
[2020-07-26] MEDS: POTASSIUM CHL 20 Meq TABLET PO SCH (09:22)
[2020-07-26] MEDS: cefTRIAXone 1GM/50ML D5W 50 ML IV SCH (09:22)
[2020-07-26] MEDS: INSULIN LANTUS (GLARGINE) 1 /0.01ml (100units/ml) SC SCH (09:23)
--- NOTE | 2020-07-26 15:00 | NUR ---
Patient transferred to unit in stable condition.
--- NOTE | 2020-07-26 16:40 | NUR ---
Patient resting comfortably in bed with eyes closed. Patient stable at this time.
[2020-07-26 17:00] VITALS: BP 126/71
--- NOTE | 2020-07-26 17:58 | NUR ---
Checked blood sugar: 127 mg/dl - no coverage required. Patient requested medication for 5/10 chest pain. Will medicate with norco. Patient stable.
--- NOTE | 2020-07-26 18:10 | NUR ---
Patient medicated for 5/10 chest pain. Patient resting quietly in bed. Patient stable since transfer to unit.
--- NOTE | 2020-07-26 19:40 | NUR ---
Opening Shift Note Assumed care of patient, awake and alert x4. No S/S of distress/SOB or pain. Instructed on POC and to call for assist PRN, will continue to monitor for changes Q1hr and PRN. Bed in lowest locked position, call light within reach, side rails up x2.
[2020-07-26 20:00] VITALS: BP 130/89
[2020-07-26 22:00] VITALS: BP 130/89
[2020-07-26] MEDS: PANTOPRAZOLE 40 MG/10 ML VIAL INJ IV SCH (22:15)
[2020-07-26] MEDS: METOCLOPRAMIDE HCL 5MG/ml INJ 2ml VIAL IV SCH (22:15)
[2020-07-27] MEDS: D5W/SOD CHL 0.45%/KCL 40MEQ 1,000 ML IV SCH ×2 (00:02→10:49)
[2020-07-27] MEDS: InsuLIN REG 1unit/0.01ml Soln (100units/ml) SC SCH ×4 (04:10→16:12)
[2020-07-27] MEDS: ACCU-CHEK COMFORT CURVE STRIP VI SCH ×4 (04:10→16:11)
[2020-07-27 05:00] VITALS: BP 133/88
--- NOTE | 2020-07-27 05:40 | NUR ---
Wound photo to right forearm taken for admission to telemetry unit
--- NOTE | 2020-07-27 05:50 | NUR ---
MRSA Nares collected and sent to lab via bullet system
[2020-07-27] MEDS: METOCLOPRAMIDE HCL 5MG/ml INJ 2ml VIAL IV SCH ×2 (06:23→13:45)
[2020-07-27] MEDS: metroNIDAZOLE 500MG/100ML 100 ML IV SCH ×2 (06:23→13:44)
[2020-07-27 07:24] LABS: Basophils # (auto) 0 10 ^3/uL (0-0.2); Basophils % (auto) 0.4 % (0.0-2.0); Eosinophils # (auto) 0 10 ^3/uL (0-0.8); Eosinophils % (auto) 0.7 % (0.0-7.0); Hematocrit 29.2 % (36.0-46.0); Hemoglobin 9.9 g/dL (12.2-16.2); Lymphocytes # (auto) 1.2 10 ^3/uL (0.4-5.4); Lymphocytes % (auto) 17.1 % (10.0-50.0); Mean Corpuscular Hemoglobin 30.9 pg (28.0-32.0); Monocytes # (auto) 0.6 10 ^3/uL (0-1.3); Monocytes % (auto) 8.1 % (0.0-12.0); Neutrophils # (auto) 5.2 10 ^3/uL (1.6-8.6); Neutrophils % (auto) 73.7 % (37.0-80.0); Platelet Count (auto) 212 10^3/uL (140-450); Red Blood Cells 3.21 10^6/uL (4.0-5.20); Red Cell Distribution Width 14.2 % (11.8-14.3); White Blood Cell 7.1 10^3/uL (4.4-10.8)
[2020-07-27 07:42] LABS: Amylase 23 U/L (25-115); Anion Gap 6 (5-15); BUN/Creatinine Ratio 3.1; Blood Urea Nitrogen < 1 mg/dL (7-18); Calcium 8.5 mg/dL (8.5-10.1); Carbon Dioxide 27 mmol/L (21-32); Chloride 110 mmol/L (98-107); GFR African American 339 mL/min; GFR Non-African American 280 mL/min; Glucose 136 mg/dL (74-106); Lipase 88 U/L (73-393); Potassium 3.6 mmol/L (3.5-5.1); Sodium 143 mmol/L (136-145)
[2020-07-27 08:00] VITALS: BP 137/93
[2020-07-27] MEDS: cefTRIAXone 1GM/50ML D5W 50 ML IV SCH (08:27)
--- NOTE | 2020-07-27 08:35 | NUR ---
ABDOMINAL PAIN Patient reports abdominal pain 6/10. Patient offered pain medication, however patient refused. Will continue to monitor.
[2020-07-27 09:00] VITALS: BP 137/93
[2020-07-27] MEDS: POTASSIUM CHL 20 Meq TABLET PO SCH ×2 (10:00→10:49)
[2020-07-27] MEDS: PANTOPRAZOLE 40 MG/10 ML VIAL INJ IV SCH (10:49)
[2020-07-27] MEDS: INSULIN LANTUS (GLARGINE) 1 /0.01ml (100units/ml) SC SCH (11:03)
--- NOTE | 2020-07-27 11:05 | NUR ---
Dr Castillo bedside with patient discussing plan of care. Orders received and carried out
--- NOTE | 2020-07-27 11:05 | NUR ---
Dr Castillo bedside with patient
--- NOTE | 2020-07-27 11:20 | NUR ---
Called [facility] and spoke with Ariana Dominguez [phone], gave verbal update on the patient, requested the patient be transferred to their facility, faxed clinical information that was requested and gave call back information room 298B [phone] ext [phone].
[2020-07-27] MEDS ORDERED: ENOXAPARIN SOD 40 MG/0.4 ML SYRINGE SC ONE (11:45)
--- NOTE | 2020-07-27 11:49 | NUR ---
Received a call from Ariana MARTINEZ at [facility] [phone] stated they have accepted the patient and the accepting Md will be Smitha Chen MD, they will call when they have a bed, ask if we will put [facility] on WILL CALL.
--- NOTE | 2020-07-27 12:00 | NUR ---
Called [facility] , spoke with Priscila dispatcher maintenance gave update on the patient and requested to place patient on WILL CALL for transport to [facility] when a bed is available.
--- NOTE | 2020-07-27 12:30 | NUR ---
Informed Dr Castillo of patients DVT to right leg. MD to place orders. Addendum: 07/27/20 at 1626 by SIMON WALL RN RN informed of patients tingling sensation to chin and lower face. No orders at this time.
[2020-07-27] MEDS ORDERED: ENOXAPARIN SOD 30 MG/0.3 ML SYRINGE SC ONE (12:45)
--- NOTE | 2020-07-27 12:55 | NUR ---
Received a call from Ariana MARTINEZ at [facility] stating the patient has a bed, [address], Bed 5360, call report to [phone]. stated the room will be ready in about 1 hour.
[2020-07-27 12:59] VITALS: BP 128/90
[2020-07-27 13:00] VITALS: BP 128/90
--- NOTE | 2020-07-27 13:05 | NUR ---
Called [facility] and placed cnc grinder time for 1600. Called Nurse and and made aware of the room and warehouse picker time.
--- NOTE | 2020-07-27 14:47 | NUR ---
Called [facility] and gave report to RNTerri.
--- NOTE | 2020-07-27 14:56 | NUR ---
The patient 20-year-old female, patient is alert and oriented. Patient cognitive abilities are intact, patient is independent for ADLs. Patient stated that she ambulates independently. Patient stated that she has health issues with diabetes. Patient lives with her sister Ariana Pratt. Patient receives income from [employer] a resource from [facility]. Patient stated that she will return home post discharge. Patient stated her sister has transportation for post discharge. Patient stated that her sister is her support system. Discharge planning: Patient to return home post discharge. Patient has all diabetic supplies at this time. Patient has no discharge needs. Addendum: 07/27/20 at 1457 by ARLETH SANCHEZ Amended: Links added.
--- NOTE | 2020-07-27 16:13 | NUR ---
Discharge instructions given as ordered. All questions and concerns addressed. Patient verbalized understanding. Medication reconciliation form completed and copy given to patient. No home medications being held in Pharmacy, and no needed vaccines given as patient declined. Telemetry unit returned to ICU. Patient transferred to [facility]. Report called in to [facility]. Transport service with [facility]. Patient taken to ambulance via gurney with all personal belongings, accompanied by [facility] transport team. Patient transported with triple lumen in place. No signs of distress noted at time of departure.
[2020-07-27] MEDS ORDERED: ENOXAPARIN SOD 60 MG/0.6 ML SYRINGE SC SCH (22:00)
[2020-07-28] MEDS ORDERED: ENOXAPARIN SOD 40 MG/0.4 ML SYRINGE SC SCH (10:00)
== END 2020-07-27 16:13 | disposition short-term general hospital (02) | DRG 420 ==
LOC: EDBD 13:14 → ER 13:14 → TELE 13:15 → TELE-WESTW 07-26 14:57
PROVIDERS: ADMIT Hospitalist; ATTEND Internal Medicine
PROC: 06HY33Z Insertion of Infusion Device into Lower Vein, Percutaneous Approach (ICD-10-PCS; principal; 2020-07-24)
DX: E10.10 Type 1 diabetes mellitus with ketoacidosis without coma (principal); N17.0 Acute kidney failure with tubular necrosis; K52.9 Noninfective gastroenteritis and colitis, unspecified; E86.0 Dehydration; N18.9 Chronic kidney disease, unspecified; E10.40 Type 1 diabetes mellitus with diabetic neuropathy, unspecified; K29.70 Gastritis, unspecified, without bleeding; E44.0 Moderate protein-calorie malnutrition; E87.0 Hyperosmolality and hypernatremia; B37.3 Candidiasis of vulva and vagina; K21.00 Gastro-esophageal reflux disease with esophagitis, without bleeding; E10.22 Type 1 diabetes mellitus with diabetic chronic kidney disease; E83.51 Hypocalcemia; E87.6 Hypokalemia; G92 Toxic encephalopathy; I12.9 Hypertensive chronic kidney disease with stage 1 through stage 4 chronic kidney disease, or unspecified chronic kidney disease; N39.0 Urinary tract infection, site not specified; K85.90 Acute pancreatitis without necrosis or infection, unspecified; Z20.828 Contact with and (suspected) exposure to other viral communicable diseases; Z79.4 Long term (current) use of insulin; Z80.9 Family history of malignant neoplasm, unspecified; Z82.49 Family history of ischemic heart disease and other diseases of the circulatory system; Z83.3 Family history of diabetes mellitus; Z91.14 Patient's other noncompliance with medication regimen; R65.10 Systemic inflammatory response syndrome (SIRS) of non-infectious origin without acute organ dysfunction; I82.431 Acute embolism and thrombosis of right popliteal vein
CPT/HCPCS: 36415; 36600; 71045; 74176; 80048; 80053; 80061; 80307; 81001; 82010; 82150; 82805; 82962; 83036; 83605; 83690; 83735; 83930; 84100; 84484; 85007; 85025; 85027; 87040; 87081; 87086; 93971; C9113; G0378; J0610; J0696; J1815; J2001; J2543; J3480; J3490

== ENCOUNTER 2021-02-11 15:31 | Inpatient (IN) | payer MEDICAID, OTHER ==
[~2021-02-11] VITALS: Ht 152.4 cm; Wt 56.9 kg
[~2021-02-11 15:31] MED LIST changes: -APIX5TAB PO; +INSLANTI SC; -METR500T PO
[2021-02-11] MEDS ORDERED: SODIUM CHLORIDE 0.9% 1,000 ML IV ONE ×2 (16:15→16:45)
[2021-02-11 16:21] LABS: Basophils # (auto) 0.1 10 ^3/uL (0-0.2); Eosinophils # (auto) 0 10 ^3/uL (0-0.8); Monocytes # (auto) 0.6 10 ^3/uL (0-1.3)
[2021-02-11 16:31] LABS: Basophils % (auto) 0.7 % (0.0-2.0); Calcium 7.8 mg/dL (8.5-10.1); Hematocrit 48.6 % (36.0-46.0); Lymphocytes # (auto) 1.4 10 ^3/uL (0.4-5.4); Lymphocytes % (auto) 8.4 % (10.0-50.0); Monocytes % (auto) 3.5 % (0.0-12.0); Neutrophils # (auto) 14.7 10 ^3/uL (1.6-8.6); Neutrophils % (auto) 87.4 % (37.0-80.0); Platelet Count (auto) 289 10^3/uL (140-450); Potassium 3.9 mmol/L (3.5-5.1); Red Blood Cells 5.01 10^6/uL (4.0-5.20); Red Cell Distribution Width 14.8 % (11.8-14.3); White Blood Cell 16.8 10^3/uL (4.4-10.8)
[2021-02-11 16:34] LABS: Bilirubin, Total 0.5 mg/dL (0.2-1.0); Total Protein 7.5 g/dL (6.4-8.2)
[2021-02-11 16:50] LABS: Albumin 3.4 g/dL (3.4-5.0)
[2021-02-11 16:55] LABS: BUN/Creatinine Ratio 16.8
[2021-02-11] MEDS ORDERED: DEXTROSE (50%) 50ML SYRG IV PRN (17:00)
[2021-02-11] MEDS ORDERED: SODIUM BICARBONATE 8.4 % INJ 50ML VIAL IV ONE ×3 (17:00→22:47)
[2021-02-11 17:09] LABS: Urine Bacteria FEW /hpf (None Seen); Urine Blood TRACE /uL (Negative); Urine Specific Gravity 1.016 (1.001-1.035); Urine WBC <1 /hpf (0 - 5)
[2021-02-11 17:24] LABS: Alcohol, Urine < 3.0 mg/dL (0-10); Amphetamine Screen, Urine NEGATIVE (NEGATIVE); Barbiturate Scree,Urine NEGATIVE (NEGATIVE); Benzodiazephine Screen, Urine NEGATIVE (NEGATIVE); Cannabinoid Screen, Urine NEGATIVE (NEGATIVE); Cocaine Screen, Urine NEGATIVE (NEGATIVE); Opiate Scree,Urine NEGATIVE (NEGATIVE); Phencyclidine Screen, Urine NEGATIVE (NEGATIVE)
[2021-02-11 17:34] LABS: Magnesium 2.5 mg/dL (1.6-2.6)
[2021-02-11] MEDS: SODIUM CHLORIDE 0.9% 1,000 ML IV SCH ×2 (17:36→19:15)
[2021-02-11] MEDS: InsuLIN R (HUMAN) 100 UNITS in SODIUM CHL 0.9% 99 ML IV SCH ×2 (17:46→19:30)
[2021-02-11] MEDS: ACCU-CHEK COMFORT CURVE STRIP VI SCH ×4 (17:52→22:30)
[2021-02-11 17:57] LABS: INR 0.98 (0.9-1.15); Partial Thromboplastin Time 33.7 sec (23.0-31.2)
[2021-02-11] MEDS ORDERED: SOD CHL 0.9%/ KCL 20MEQ 1,000 ML IV SCH (19:15)
[2021-02-11] MEDS ORDERED: D5W/ SOD CHL 0.9%/KCL 20MEQ 1,000 ML IV SCH (19:15)
[2021-02-11] MEDS ORDERED: SODIUM CHLORIDE 0.9% 3,000 ML IV ONE (19:15)
[2021-02-11] MEDS ORDERED: cefTRIAXone 1GM/50ML D5W 50 ML IV ONE (19:15)
[2021-02-11] MEDS ORDERED: HYDROcodone-ACET 5/325MG TAB PO PRN (19:15)
[2021-02-11] MEDS ORDERED: ENOXAPARIN SOD 40 MG/0.4 ML SYRINGE SC ONE (19:15)
[2021-02-11] MEDS ORDERED: NITROGLYCERIN 0.4 MG SL TAB SL PRN ×2 (19:15)
[2021-02-11] MEDS ORDERED: MORPHINE SULF INJ 2 MG/ML SYRINGE 1ML IV PRN ×2 (19:15)
[2021-02-11] MEDS ORDERED: ACETAMINOPHEN 325 MG TAB PO PRN (19:15)
[2021-02-11] MEDS ORDERED: DOCUSATE SOD 100 MG CAP PO PRN (19:15)
[2021-02-11] MEDS ORDERED: LORazepam 0.5 MG TAB PO PRN (19:15)
[2021-02-11 19:55] LABS: Cholesterol 234 mg/dL (< 200)
[2021-02-11 19:58] LABS: HDL Cholesterol 43 mg/dL (40-59); Triglycerides 850 mg/dL (< 150)
[2021-02-11 20:37] LABS: Anion Gap 29 (5-15); Blood Urea Nitrogen 21 mg/dL (7-18); Calcium 6.8 mg/dL (8.5-10.1); Chloride 109 mmol/L (98-107); Glucose 299 mg/dL (74-106); Sodium 143 mmol/L (136-145)
[2021-02-11 20:43] LABS: BUN/Creatinine Ratio 28.4; GFR African American 129 mL/min; GFR Non-African American 106 mL/min
[2021-02-11] MEDS ORDERED: SODIUM CHLORIDE 0.9% 1,000 ML IV SCH ×2 (21:00→23:00)
[2021-02-11] MEDS ORDERED: HALOPERIDOL LACTATE 5 MG/ML INJ VIAL ONE (21:04)
[2021-02-11] MEDS ORDERED: HALOPERIDOL LACTATE 5 MG/ML INJ VIAL IM ONE (21:15)
[2021-02-11 21:31] LABS: Carbon Dioxide 5 mmol/L (21-32); Potassium 2.7 mmol/L (3.5-5.1)
[2021-02-11] MEDS: POTASSIUM CHL 20MEQ/100ML 100 ML IV SCH ×2 (22:00→23:44)
[2021-02-11] MEDS ORDERED: SODIUM BICARBONATE 50ML VIAL 100 ML in SOD CHL 0.45% 1,000 ML IV SCH (22:15)
[2021-02-11 23:45] VITALS: BP 120/73
[2021-02-12] VITALS (52 sets, daily range): BP systolic 94–128; BP diastolic 45–92
[2021-02-12] MEDS: ACCU-CHEK COMFORT CURVE STRIP VI SCH ×17 (00:43→23:53)
[2021-02-12] MEDS ORDERED: SODIUM BICARBONATE 8.4 % INJ 50ML VIAL IV ONE (01:30)
[2021-02-12] MEDS: MORPHINE SULF INJ 2 MG/ML SYRINGE 1ML IV PRN ×3 (02:00→23:41)
[2021-02-12] MEDS: ONDANSETRON HCL 4 MG/2 ML VIAL IV PRN ×2 (02:00→13:43)
[2021-02-12 02:33] LABS: Albumin 2.8 g/dL (3.4-5.0); BUN/Creatinine Ratio 27.1; Magnesium 1.7 mg/dL (1.6-2.6)
[2021-02-12 02:36] LABS: Bilirubin, Total 0.5 mg/dL (0.2-1.0); Total Protein 6.1 g/dL (6.4-8.2)
[2021-02-12 02:46] LABS: Potassium 2.7 mmol/L (3.5-5.1)
[2021-02-12 03:00] LABS: Phosphorus 1.2 mg/dL (2.5-4.90)
[2021-02-12] MEDS: POTASSIUM CHL 20MEQ/100ML 100 ML IV PRN (03:02)
[2021-02-12] MEDS ORDERED: CALCIUM GLUC 1,000mg/50ml-NS 50 ML IV ONE (03:30)
[2021-02-12] MEDS ORDERED: POTASSIUM CHL 20MEQ/100ML 100 ML IV ONE ×2 (03:30→18:45)
[2021-02-12 05:37] LABS: Basophils # (auto) 0.1 10 ^3/uL (0-0.2); Basophils % (auto) 0.9 % (0.0-2.0); Eosinophils # (auto) 0 10 ^3/uL (0-0.8); Hematocrit 35.9 % (36.0-46.0); Hemoglobin 12.3 g/dL (12.2-16.2); Lymphocytes # (auto) 1.1 10 ^3/uL (0.4-5.4); Mean Corpuscular Hemoglobin 31.3 pg (28.0-32.0); Mean Corpuscular Hgb Conc. 34.3 g/dL (32.0-36.0); Mean Corpuscular Volume 91.2 fL (80.0-100.0); Monocytes # (auto) 0.5 10 ^3/uL (0-1.3); Monocytes % (auto) 3.6 % (0.0-12.0); Neutrophils % (auto) 87.5 % (37.0-80.0); Nucleated Red Blood Cells % 0.1 %; Platelet Count (auto) 176 10^3/uL (140-450); Red Blood Cells 3.94 10^6/uL (4.0-5.20); Red Cell Distribution Width 14.6 % (11.8-14.3); White Blood Cell 13.7 10^3/uL (4.4-10.8)
[2021-02-12 05:46] LABS: INR 1.05 (0.9-1.15); Partial Thromboplastin Time 23.1 sec (23.0-31.2)
[2021-02-12] MEDS ORDERED: POTASSIUM CHL 20 Meq TABLET PO ONE (06:00)
[2021-02-12] MEDS: cefTRIAXone 1GM/50ML D5W 50 ML IV SCH (09:11)
[2021-02-12] MEDS ORDERED: ENOXAPARIN SOD 40 MG/0.4 ML SYRINGE SC SCH (10:00)
[2021-02-12] MEDS ORDERED: ENOXAPARIN SOD 60 MG/0.6 ML SYRINGE SC SCH (10:00)
[2021-02-12] MEDS ORDERED: INSULIN LANTUS (GLARGINE) 1 /0.01ml (100units/ml) SC ONE ×2 (11:00→11:15)
[2021-02-12 11:28] LABS: BUN/Creatinine Ratio 11.6; Calcium 6.7 mg/dL (8.5-10.1)
[2021-02-12 11:43] LABS: Potassium 2.8 mmol/L (3.5-5.1)
[2021-02-12] MEDS ORDERED: POTASSIUM CHLORIDE 60 MEQ, LIDOCAINE 1% (LOCAL ANESTH.) 6 ML in SODIUM CHL 0.9% 500 ML IV ONE (11:45)
[2021-02-12] MEDS: D5W/SOD CHL 0.9%/KCL 40MEQ 1,000 ML IV SCH ×2 (12:08→21:15)
[2021-02-12 18:23] LABS: Calcium 6.6 mg/dL (8.5-10.1)
[2021-02-12] MEDS: InsuLIN R (HUMAN) 100 UNITS in SODIUM CHL 0.9% 99 ML IV SCH (22:52)
[2021-02-13] VITALS (23 sets, daily range): BP systolic 93–126; BP diastolic 53–93
[2021-02-13] MEDS: ACCU-CHEK COMFORT CURVE STRIP VI SCH ×10 (01:30→18:25)
[2021-02-13 02:21] LABS: BUN/Creatinine Ratio 5.1; Calcium 7.2 mg/dL (8.5-10.1)
[2021-02-13 02:24] LABS: Potassium 2.8 mmol/L (3.5-5.1)
[2021-02-13] MEDS: POTASSIUM CHL 20MEQ/100ML 100 ML IV PRN (02:30)
[2021-02-13] MEDS ORDERED: POTASSIUM CHL 20 Meq TABLET PO ONE (04:00)
[2021-02-13] MEDS ORDERED: SOD CHL 0.9%/ KCL 40MEQ 1,000 ML IV SCH (04:45)
[2021-02-13] MEDS: POTASSIUM CHL 20MEQ/100ML 100 ML IV SCH ×4 (05:30→16:01)
[2021-02-13 07:03] LABS: BUN/Creatinine Ratio 3.7; Calcium 7.6 mg/dL (8.5-10.1); Potassium 3.3 mmol/L (3.5-5.1)
[2021-02-13] MEDS: cefTRIAXone 1GM/50ML D5W 50 ML IV SCH (08:58)
[2021-02-13] MEDS: D5W/SOD CHL 0.9%/KCL 40MEQ 1,000 ML IV SCH ×3 (10:24→21:37)
[2021-02-13] MEDS: ENOXAPARIN SOD 40 MG/0.4 ML SYRINGE SC SCH (10:24)
[2021-02-13] MEDS: MORPHINE SULF INJ 2 MG/ML SYRINGE 1ML IV PRN ×3 (10:25→21:36)
[2021-02-13] MEDS ORDERED: INSULIN LANTUS (GLARGINE) 1 /0.01ml (100units/ml) SC ONE (11:35)
[2021-02-13] MEDS: ALUM & MAG HYDROX-SIMETH LIQ(MAALOX) 30 ML PO PRN (13:18)
[2021-02-13 14:10] LABS: BUN/Creatinine Ratio 4.3; Calcium 7.7 mg/dL (8.5-10.1); Potassium 3.1 mmol/L (3.5-5.1)
[2021-02-13] MEDS ORDERED: DEXTROSE (50%) 50ML SYRG IV PRN (16:15)
[2021-02-13] MEDS: SOD CHL 0.9%/ KCL 40MEQ 1,000 ML IV SCH (16:15)
[2021-02-13] MEDS: InsuLIN REG 1unit/0.01ml Soln (100units/ml) SC SCH (18:27)
[2021-02-13 18:37] LABS: Calcium 7.4 mg/dL (8.5-10.1); Potassium 3.7 mmol/L (3.5-5.1)
[2021-02-14] VITALS (18 sets, daily range): BP systolic 93–128; BP diastolic 53–91
[2021-02-14] MEDS: ACCU-CHEK COMFORT CURVE STRIP VI SCH ×5 (00:06→23:52)
[2021-02-14] MEDS: InsuLIN REG 1unit/0.01ml Soln (100units/ml) SC SCH ×5 (00:10→23:58)
[2021-02-14] MEDS: SOD CHL 0.9%/ KCL 40MEQ 1,000 ML IV SCH ×3 (00:10→23:29)
[2021-02-14 00:45] LABS: Calcium 7.9 mg/dL (8.5-10.1); Potassium 3.7 mmol/L (3.5-5.1)
[2021-02-14 00:47] LABS: BUN/Creatinine Ratio 7.5
[2021-02-14 04:01] LABS: Basophils # (auto) 0 10 ^3/uL (0-0.2); Basophils % (auto) 0.9 % (0.0-2.0); Eosinophils # (auto) 0 10 ^3/uL (0-0.8); Eosinophils % (auto) 0.7 % (0.0-7.0); Hematocrit 37.8 % (36.0-46.0); Hemoglobin 13.6 g/dL (12.2-16.2); Lymphocytes % (auto) 41.3 % (10.0-50.0); Mean Corpuscular Hgb Conc. 35.9 g/dL (32.0-36.0); Monocytes # (auto) 0.4 10 ^3/uL (0-1.3); Monocytes % (auto) 8.3 % (0.0-12.0); Neutrophils # (auto) 2.4 10 ^3/uL (1.6-8.6); Neutrophils % (auto) 48.8 % (37.0-80.0); Nucleated Red Blood Cells % 0.2 %; Platelet Count (auto) 158 10^3/uL (140-450); Red Blood Cells 4.25 10^6/uL (4.0-5.20); Red Cell Distribution Width 14.6 % (11.8-14.3); White Blood Cell 4.9 10^3/uL (4.4-10.8)
[2021-02-14 04:22] LABS: BUN/Creatinine Ratio 13.5; Calcium 8.2 mg/dL (8.5-10.1); Potassium 3.8 mmol/L (3.5-5.1)
[2021-02-14] MEDS: MORPHINE SULF INJ 2 MG/ML SYRINGE 1ML IV PRN ×2 (05:04→08:35)
[2021-02-14] MEDS: ONDANSETRON HCL 4 MG/2 ML VIAL IV PRN (09:01)
[2021-02-14] MEDS: ENOXAPARIN SOD 40 MG/0.4 ML SYRINGE SC SCH (10:40)
[2021-02-14] MEDS ORDERED: MORPHINE SULF INJ 2 MG/ML SYRINGE 1ML IV PRN (12:00)
[2021-02-14] MEDS ORDERED: INSULIN LANTUS (GLARGINE) 1 /0.01ml (100units/ml) SC ONE (12:00)
[2021-02-14] MEDS: D5W/SOD CHL 0.9%/KCL 40MEQ 1,000 ML IV SCH (12:15)
[2021-02-14] MEDS: ALUM & MAG HYDROX-SIMETH LIQ(MAALOX) 30 ML PO PRN (12:31)
[2021-02-15 05:22] VITALS: BP 118/71
[2021-02-15] MEDS: ACCU-CHEK COMFORT CURVE STRIP VI SCH ×3 (05:42→18:00)
[2021-02-15] MEDS: InsuLIN REG 1unit/0.01ml Soln (100units/ml) SC SCH ×3 (06:01→18:00)
[2021-02-15 07:51] LABS: Basophils # (auto) 0 10 ^3/uL (0-0.2); Basophils % (auto) 0.9 % (0.0-2.0); Eosinophils # (auto) 0 10 ^3/uL (0-0.8); Eosinophils % (auto) 1.3 % (0.0-7.0); Hematocrit 33.2 % (36.0-46.0); Hemoglobin 11.5 g/dL (12.2-16.2); Lymphocytes # (auto) 1.8 10 ^3/uL (0.4-5.4); Lymphocytes % (auto) 51.7 % (10.0-50.0); Mean Corpuscular Hemoglobin 31.3 pg (28.0-32.0); Mean Corpuscular Hgb Conc. 34.8 g/dL (32.0-36.0); Mean Corpuscular Volume 89.8 fL (80.0-100.0); Monocytes # (auto) 0.3 10 ^3/uL (0-1.3); Neutrophils # (auto) 1.3 10 ^3/uL (1.6-8.6); Neutrophils % (auto) 38.1 % (37.0-80.0); Nucleated Red Blood Cells % 0.1 %; Platelet Count (auto) 166 10^3/uL (140-450); Red Blood Cells 3.69 10^6/uL (4.0-5.20); Red Cell Distribution Width 14.6 % (11.8-14.3); White Blood Cell 3.5 10^3/uL (4.4-10.8)
[2021-02-15 08:12] LABS: BUN/Creatinine Ratio 17.1; Potassium 4.2 mmol/L (3.5-5.1)
[2021-02-15 08:48] VITALS: BP 111/74
[2021-02-15] MEDS: ONDANSETRON HCL 4 MG/2 ML VIAL IV PRN (09:36)
[2021-02-15] MEDS: ENOXAPARIN SOD 40 MG/0.4 ML SYRINGE SC SCH (09:36)
[2021-02-15] MEDS: SOD CHL 0.9%/ KCL 40MEQ 1,000 ML IV SCH ×2 (09:37→18:15)
[2021-02-15] MEDS ORDERED: INSULIN LANTUS (GLARGINE) 1 /0.01ml (100units/ml) SC SCH (10:00)
[2021-02-15] MEDS ORDERED: ONDA-144 PO (11:27)
[2021-02-15] MEDS ORDERED: PANT40TA2 PO (11:27)
[2021-02-15 12:43] VITALS: BP 122/76
[2021-02-15 15:37] VITALS: BP 122/76
[2021-02-15 16:34] VITALS: BP 116/65
== END 2021-02-15 18:16 | disposition home or self-care (01) | DRG 720 ==
LOC: EDBD 15:31 → ER 15:31 → EDUNIT# 15:31 → TELE 19:11 → ICU WEST 22:41 → TELE-WESTW 02-14 17:18 → WEST WING 02-14 22:37
PROVIDERS: ADMIT Hospitalist; ATTEND Internal Medicine Pulmonary Disease
PROC: 05HC33Z Insertion of Infusion Device into Left Basilic Vein, Percutaneous Approach (ICD-10-PCS; principal; 2021-02-11)
PROC: B54NZZA Ultrasonography of Left Upper Extremity Veins, Guidance (ICD-10-PCS; 2021-02-11)
DX: A41.9 Sepsis, unspecified organism (principal); G93.41 Metabolic encephalopathy; E10.10 Type 1 diabetes mellitus with ketoacidosis without coma; N17.9 Acute kidney failure, unspecified; E87.1 Hypo-osmolality and hyponatremia; R65.20 Severe sepsis without septic shock; K52.9 Noninfective gastroenteritis and colitis, unspecified; N39.0 Urinary tract infection, site not specified; E86.0 Dehydration; N18.9 Chronic kidney disease, unspecified; K29.70 Gastritis, unspecified, without bleeding; K21.9 Gastro-esophageal reflux disease without esophagitis; Z20.822 Contact with and (suspected) exposure to COVID-19; Z91.19 Patient's noncompliance with other medical treatment and regimen; Z83.3 Family history of diabetes mellitus; Z82.49 Family history of ischemic heart disease and other diseases of the circulatory system
CPT/HCPCS: 36415; 36600; 71045; 80048; 80053; 80061; 80307; 81001; 82306; 82550; 82805; 82962; 83036; 83690; 83735; 83880; 83930; 84100; 84443; 84484; 84702; 85025; 85610; 85730; 87040; 87081; 87086; 87426; 93005; 96361; 96365; 96372; 99291; A4565; G0378; J0696; J1815; J2001; J2405; J3480; J7060

== ENCOUNTER 2021-07-05 03:05 | Inpatient (IN) | payer MEDICAID, OTHER ==
[2021-07-05] VITALS (8 sets, daily range): BP systolic 98–124; BP diastolic 43–71
[~2021-07-05] VITALS: Ht 160 cm; Wt 56.0 kg
[~2021-07-05 03:05] MED LIST changes: +ONDA-144 PO; +PANT40TA2 PO
[2021-07-05] MEDS ORDERED: SODIUM CHLORIDE 0.9% 1,000 ML IV ONE (03:45)
[2021-07-05 04:48] LABS: Basophils # (auto) 0.2 10 ^3/uL (0-0.2); Basophils % (auto) 1.2 % (0.0-2.0); Eosinophils # (auto) 0 10 ^3/uL (0-0.8); Eosinophils % (auto) 0.1 % (0.0-7.0); Hemoglobin 13.8 g/dL (12.2-16.2); Lymphocytes # (auto) 2.5 10 ^3/uL (0.4-5.4); Lymphocytes % (auto) 15.6 % (10.0-50.0); Mean Corpuscular Hgb Conc. 29.4 g/dL (32.0-36.0); Mean Corpuscular Volume 112.3 fL (80.0-100.0); Monocytes # (auto) 1.5 10 ^3/uL (0-1.3); Monocytes % (auto) 9.1 % (0.0-12.0); Neutrophils # (auto) 11.9 10 ^3/uL (1.6-8.6); Red Blood Cells 4.18 10^6/uL (4.0-5.20); Red Cell Distribution Width 15.7 % (11.8-14.3); White Blood Cell 16.1 10^3/uL (4.4-10.8)
[2021-07-05 04:51] LABS: Urine Amorphous Crystal FEW /hpf (None Seen); Urine Bacteria FEW /hpf (None Seen); Urine Blood Negative /uL (Negative); Urine Mucus FEW (None Seen); Urine Specific Gravity 1.017 (1.001-1.035); Urine WBC 3 /hpf (0 - 5)
[2021-07-05 04:59] LABS: INR 1.1 (0.9-1.15); Partial Thromboplastin Time 44.4 sec (23.6-33.0)
[2021-07-05 05:03] LABS: Albumin 2.9 g/dL (3.4-5.0); Anion Gap 35 (5-15); Blood Urea Nitrogen 28 mg/dL (7-18); Calcium 7.9 mg/dL (8.5-10.1); Chloride 100 mmol/L (98-107); Magnesium 2.8 mg/dL (1.6-2.6); Potassium 4.9 mmol/L (3.5-5.1); Sodium 137 mmol/L (136-145)
[2021-07-05 05:04] LABS: Alanine Aminotransferase 21 U/L (13-56); Aspartate Aminotransferase 22 U/L (15-37); GFR African American 71 mL/min; GFR Non-African American 59 mL/min
[2021-07-05 05:06] LABS: Alkaline Phosphatase 144 U/L (45-117); Bilirubin, Total 0.4 mg/dL (0.2-1.0); Total Protein 7.4 g/dL (6.4-8.2)
[2021-07-05] MEDS ORDERED: SODIUM BICARB 50ML SYR 50 ML in SODIUM CHLORIDE 0.9% 1,000 ML IV SCH (05:15)
[2021-07-05] MEDS ORDERED: SODIUM BICARBONATE 8.4% INJ 50ML SYRINGE ONE (05:17)
[2021-07-05 05:29] LABS: BUN/Creatinine Ratio 22.8; Carbon Dioxide 2 mmol/L (21-32)
[2021-07-05 05:33] LABS: Glucose 853 mg/dL (74-106)
[2021-07-05] MEDS ORDERED: InsuLIN R (HUMAN) 100 UNITS in SODIUM CHL 0.9% 99 ML IV SCH ×2 (06:15→06:45)
[2021-07-05] MEDS ORDERED: DEXTROSE (50%) 50ML SYRG IV PRN ×2 (06:15→07:00)
[2021-07-05] MEDS ORDERED: InsuLIN REG 1unit/0.01ml Soln (100units/ml) ONE (06:31)
[2021-07-05] MEDS ORDERED: INSULIN LANTUS (GLARGINE) 1 /0.01ml (100units/ml) SC ONE (07:00)
[2021-07-05] MEDS ORDERED: SODIUM BICARBONATE 50ML VIAL 100 ML in SOD CHL 0.45% 1,000 ML IV SCH (07:00)
[2021-07-05] MEDS ORDERED: MORPHINE SULFATE INJECTION 2 MG/ML SYRG IV PRN (07:00)
[2021-07-05] MEDS ORDERED: NITROGLYCERIN 0.4 MG SL TAB SL PRN (07:00)
[2021-07-05] MEDS ORDERED: ETOMIDATE (2MG/ML) 20ML VIAL IV ONE ×2 (07:26→07:45)
[2021-07-05] MEDS ORDERED: SUCCINYLCHOLINE CHLORIDE 20 MG/ML 10ML VIAL IV ONE ×2 (07:26→07:45)
[2021-07-05] MEDS: ACCU-CHEK COMFORT CURVE STRIP VI SCH ×12 (07:30→22:28)
[2021-07-05 07:55] LABS: Calcium 7.8 mg/dL (8.5-10.1); Potassium 5.4 mmol/L (3.5-5.1)
[2021-07-05 08:04] LABS: BUN/Creatinine Ratio 28.9
[2021-07-05] MEDS: MIDAZOLAM DRIP 50 mg/50mL 50 ML IV SCH ×2 (08:08→20:49)
[2021-07-05] MEDS: InsuLIN R (HUMAN) 100 UNITS in SODIUM CHL 0.9% 99 ML IV SCH ×2 (08:16→09:25)
[2021-07-05] MEDS: SODIUM CHLORIDE 0.9% 1,000 ML IV SCH ×3 (08:34→20:16)
[2021-07-05] MEDS ORDERED: SODIUM BICARBONATE 8.4 % INJ 50ML VIAL IV ONE ×2 (08:52→09:00)
[2021-07-05] MEDS ORDERED: SODIUM CHLORIDE 0.9% 1,000 ML IV SCH (11:00)
[2021-07-05] MEDS ORDERED: NOREPINEPHRINE 8 MG/250ML KIT 250 ML IV SCH (11:30)
[2021-07-05] MEDS: fentaNYL Drip 2500mCg/250mlNS 250 ML IV SCH (11:44)
[2021-07-05 13:39] LABS: Calcium 6.8 mg/dL (8.5-10.1); Potassium 3.4 mmol/L (3.5-5.1)
[2021-07-05] MEDS ORDERED: INSU100I33 SC (14:21)
[2021-07-05] MEDS ORDERED: RIV20T PO (14:21)
[2021-07-05] MEDS ORDERED: INSLISPI SC (14:21)
[2021-07-05 19:24] LABS: Calcium 7.6 mg/dL (8.5-10.1); Potassium 3.2 mmol/L (3.5-5.1)
[2021-07-05] MEDS ORDERED: ACETAMINOPHEN 650 MG RECT SUPP PR ONE (19:30)
[2021-07-05] MEDS ORDERED: LACTATED RINGER'S 2,000 ML IV ONE (19:30)
[2021-07-05] MEDS: NOREPINEPHRINE 8 MG/250ML KIT 250 ML IV SCH (19:30)
[2021-07-05] MEDS ORDERED: CEFEPIME 1 GM in SODIUM CHL 0.9% 50 ML IV ONE (19:30)
[2021-07-05] MEDS ORDERED: SOD CHL 0.9%/ KCL 20MEQ 1,000 ML IV PRN (19:30)
[2021-07-05] MEDS ORDERED: SODIUM CHLORIDE 0.9% 2,000 ML IV ONE (19:30)
[2021-07-05] MEDS ORDERED: D5W/ SOD CHL 0.9%/KCL 20MEQ 1,000 ML IV PRN (19:30)
[2021-07-05] MEDS: ACETAMINOPHEN 650 MG RECT SUPP PR PRN (19:59)
[2021-07-05] MEDS: PROPOFOL 100 ML IV SCH (20:04)
[2021-07-05] MEDS: CEFEPIME 1 GM in SODIUM CHL 0.9% 50 ML IV SCH (22:00)
[2021-07-06] VITALS (12 sets, daily range): BP systolic 96–116; BP diastolic 50–66
[2021-07-06] MEDS ORDERED: SOD CHL 0.9%/ KCL 20MEQ 1,000 ML IV PRN ×2 (00:15)
[2021-07-06] MEDS ORDERED: CALCIUM GLUC 1,000mg/50ml-NS 50 ML IV ONE (00:15)
[2021-07-06] MEDS ORDERED: CALCIUM W/VIT D (600MG/400IU) TAB PO ONE (00:15)
[2021-07-06] MEDS: ACCU-CHEK COMFORT CURVE STRIP VI SCH ×10 (00:29→20:14)
[2021-07-06] MEDS: SODIUM CHLORIDE 0.9% 1,000 ML IV SCH ×5 (00:30→21:16)
[2021-07-06] MEDS: POTASSIUM CHL 20MEQ/100ML 100 ML IV SCH ×2 (01:06→02:55)
[2021-07-06 01:28] LABS: BUN/Creatinine Ratio 15.7
[2021-07-06 01:32] LABS: Bilirubin, Total 0.3 mg/dL (0.2-1.0); Total Protein 5.2 g/dL (6.4-8.2)
[2021-07-06] MEDS: MIDAZOLAM DRIP 50 mg/50mL 50 ML IV SCH ×5 (01:32→18:09)
[2021-07-06] MEDS: NOREPINEPHRINE 8 MG/250ML KIT 250 ML IV SCH (04:26)
[2021-07-06] MEDS: CEFEPIME 1 GM in SODIUM CHL 0.9% 50 ML IV SCH (06:00)
[2021-07-06 06:17] LABS: Basophils # (auto) 0 10 ^3/uL (0-0.2); Basophils % (auto) 0.2 % (0.0-2.0); Eosinophils # (auto) 0.1 10 ^3/uL (0-0.8); Eosinophils % (auto) 1.2 % (0.0-7.0); Hematocrit 29.6 % (36.0-46.0); Hemoglobin 10.3 g/dL (12.2-16.2); Lymphocytes % (auto) 12.4 % (10.0-50.0); Mean Corpuscular Hemoglobin 32.8 pg (28.0-32.0); Mean Corpuscular Hgb Conc. 34.8 g/dL (32.0-36.0); Mean Corpuscular Volume 94.2 fL (80.0-100.0); Monocytes # (auto) 1.2 10 ^3/uL (0-1.3); Monocytes % (auto) 15.3 % (0.0-12.0); Neutrophils # (auto) 5.8 10 ^3/uL (1.6-8.6); Neutrophils % (auto) 70.9 % (37.0-80.0); Nucleated Red Blood Cells % 0.2 %; Red Blood Cells 3.14 10^6/uL (4.0-5.20); Red Cell Distribution Width 14.9 % (11.8-14.3); White Blood Cell 8.2 10^3/uL (4.4-10.8)
[2021-07-06 07:37] LABS: Albumin 1.9 g/dL (3.4-5.0); Calcium 7.9 mg/dL (8.5-10.1); Potassium 3.6 mmol/L (3.5-5.1)
[2021-07-06 07:44] LABS: Bilirubin, Total 0.3 mg/dL (0.2-1.0); Total Protein 5.2 g/dL (6.4-8.2)
[2021-07-06] MEDS: CALCIUM W/VIT D (600MG/400IU) TAB PO SCH ×2 (08:16→18:58)
[2021-07-06] MEDS: ACETAMINOPHEN 650 MG RECT SUPP PR PRN (08:35)
[2021-07-06] MEDS: fentaNYL Drip 2500mCg/250mlNS 250 ML IV SCH (08:52)
[2021-07-06] MEDS: INSULIN LANTUS (GLARGINE) 1 /0.01ml (100units/ml) SC SCH (10:38)
[2021-07-06] MEDS: PROPOFOL 100 ML IV SCH (12:13)
[2021-07-06] MEDS ORDERED: VANCOMYCIN PER PHARMACY 0 MG IV SCH (12:15)
[2021-07-06] MEDS ORDERED: VANCOMYCIN 1GM/250ML 250 ML IV ONE (12:30)
[2021-07-06] MEDS: InsuLIN REG 1unit/0.01ml Soln (100units/ml) SC SCH (20:20)
[2021-07-07] VITALS (11 sets, daily range): BP systolic 96–115; BP diastolic 56–80
[2021-07-07] MEDS: ACCU-CHEK COMFORT CURVE STRIP VI SCH ×6 (00:07→20:00)
[2021-07-07] MEDS: InsuLIN REG 1unit/0.01ml Soln (100units/ml) SC SCH ×6 (00:12→20:50)
[2021-07-07] MEDS: ACETAMINOPHEN 650 MG RECT SUPP PR PRN ×2 (00:13→12:19)
[2021-07-07] MEDS: fentaNYL Drip 2500mCg/250mlNS 250 ML IV SCH (00:41)
[2021-07-07] MEDS: MIDAZOLAM DRIP 50 mg/50mL 50 ML IV SCH ×4 (01:06→13:25)
[2021-07-07] MEDS: SODIUM CHLORIDE 0.9% 1,000 ML IV SCH ×5 (02:40→22:30)
[2021-07-07] MEDS: PROPOFOL 100 ML IV SCH ×2 (03:47→11:30)
[2021-07-07] MEDS: NOREPINEPHRINE 8 MG/250ML KIT 250 ML IV SCH (03:49)
[2021-07-07] MEDS ORDERED: VANCOMYCIN 1GM/250ML 250 ML IV SCH (04:00)
[2021-07-07 07:28] LABS: Basophils # (auto) 0 10 ^3/uL (0-0.2); Basophils % (auto) 0.4 % (0.0-2.0); Eosinophils # (auto) 0.1 10 ^3/uL (0-0.8); Hematocrit 28.2 % (36.0-46.0); Hemoglobin 9.5 g/dL (12.2-16.2); Lymphocytes # (auto) 1.3 10 ^3/uL (0.4-5.4); Mean Corpuscular Hemoglobin 32.1 pg (28.0-32.0); Mean Corpuscular Hgb Conc. 33.7 g/dL (32.0-36.0); Mean Corpuscular Volume 95.1 fL (80.0-100.0); Monocytes # (auto) 0.7 10 ^3/uL (0-1.3); Monocytes % (auto) 9.3 % (0.0-12.0); Neutrophils # (auto) 4.9 10 ^3/uL (1.6-8.6); Neutrophils % (auto) 69.3 % (37.0-80.0); Nucleated Red Blood Cells % 0.1 %; Red Blood Cells 2.97 10^6/uL (4.0-5.20); Red Cell Distribution Width 15.5 % (11.8-14.3)
[2021-07-07 07:29] LABS: INR 1.1 (0.9-1.15)
[2021-07-07 07:35] LABS: Albumin 1.6 g/dL (3.4-5.0); Anion Gap 2 (5-15); Blood Urea Nitrogen 7 mg/dL (7-18); Calcium 7.6 mg/dL (8.5-10.1); Carbon Dioxide 22 mmol/L (21-32); Chloride 134 mmol/L (98-107); Glucose 143 mg/dL (74-106); Sodium 158 mmol/L (136-145)
[2021-07-07 07:42] LABS: Alanine Aminotransferase 13 U/L (13-56); Alkaline Phosphatase 102 U/L (45-117); Aspartate Aminotransferase 27 U/L (15-37); BUN/Creatinine Ratio 7.9; Bilirubin, Total 0.3 mg/dL (0.2-1.0); GFR African American 103 mL/min; GFR Non-African American 85 mL/min; Total Protein 4.8 g/dL (6.4-8.2); Uric Acid 2.2 mg/dL (2.6-6.0)
[2021-07-07 07:47] LABS: Potassium 2.5 mmol/L (3.5-5.1)
[2021-07-07] MEDS: CALCIUM W/VIT D (600MG/400IU) TAB PO SCH ×2 (08:26→18:46)
[2021-07-07] MEDS: POTASSIUM CHL 20MEQ/100ML 100 ML IV SCH ×4 (08:33→15:28)
[2021-07-07] MEDS: INSULIN LANTUS (GLARGINE) 1 /0.01ml (100units/ml) SC SCH (10:31)
[2021-07-07] MEDS ORDERED: ceFAZolin 1GM/50ML 50 ML IV ONE (13:00)
[2021-07-07] MEDS: ceFAZolin 1GM/50ML 50 ML IV SCH (22:30)
[2021-07-08 00:18] VITALS: BP 124/84
[2021-07-08] MEDS: InsuLIN REG 1unit/0.01ml Soln (100units/ml) SC SCH ×7 (01:00→23:52)
[2021-07-08 02:07] VITALS: BP 120/84
[2021-07-08] MEDS: SODIUM CHLORIDE 0.9% 1,000 ML IV SCH ×2 (02:30→07:30)
[2021-07-08 04:05] VITALS: BP 105/62
[2021-07-08] MEDS: ACCU-CHEK COMFORT CURVE STRIP VI SCH ×7 (04:50→23:49)
[2021-07-08] MEDS: ceFAZolin 1GM/50ML 50 ML IV SCH ×3 (06:00→23:48)
[2021-07-08 06:10] VITALS: BP 133/78
[2021-07-08 07:45] VITALS: BP 133/78
[2021-07-08] MEDS: CALCIUM W/VIT D (600MG/400IU) TAB PO SCH ×2 (08:00→18:50)
[2021-07-08 09:34] LABS: Basophils # (auto) 0 10 ^3/uL (0-0.2); Basophils % (auto) 0.4 % (0.0-2.0); Eosinophils # (auto) 0.1 10 ^3/uL (0-0.8); Hematocrit 27.9 % (36.0-46.0); Hemoglobin 9.3 g/dL (12.2-16.2); Lymphocytes # (auto) 0.7 10 ^3/uL (0.4-5.4); Lymphocytes % (auto) 10.1 % (10.0-50.0); Mean Corpuscular Hemoglobin 31.6 pg (28.0-32.0); Mean Corpuscular Hgb Conc. 33.3 g/dL (32.0-36.0); Monocytes # (auto) 0.5 10 ^3/uL (0-1.3); Neutrophils # (auto) 5.4 10 ^3/uL (1.6-8.6); Neutrophils % (auto) 81.5 % (37.0-80.0); Nucleated Red Blood Cells % 0.1 %; Red Blood Cells 2.93 10^6/uL (4.0-5.20); Red Cell Distribution Width 15.3 % (11.8-14.3); White Blood Cell 6.6 10^3/uL (4.4-10.8)
[2021-07-08 09:43] LABS: BUN/Creatinine Ratio 10.9; Calcium 7.4 mg/dL (8.5-10.1)
[2021-07-08 10:07] LABS: Potassium 2.7 mmol/L (3.5-5.1)
[2021-07-08] MEDS: POTASSIUM CHL 20MEQ/100ML 100 ML IV SCH ×3 (10:50→14:48)
[2021-07-08] MEDS: INSULIN LANTUS (GLARGINE) 1 /0.01ml (100units/ml) SC SCH (10:52)
[2021-07-08 11:00] VITALS: BP 133/78
[2021-07-08] MEDS: fentaNYL Drip 2500mCg/250mlNS 250 ML IV SCH (11:30)
[2021-07-08] MEDS: PROPOFOL 100 ML IV SCH (11:30)
[2021-07-08] MEDS: NOREPINEPHRINE 8 MG/250ML KIT 250 ML IV SCH (19:30)
[2021-07-09] MEDS: InsuLIN REG 1unit/0.01ml Soln (100units/ml) SC SCH ×5 (04:00→20:00)
[2021-07-09] MEDS: ACCU-CHEK COMFORT CURVE STRIP VI SCH ×5 (04:40→20:00)
[2021-07-09] MEDS: ceFAZolin 1GM/50ML 50 ML IV SCH ×3 (06:00→22:49)
[2021-07-09 06:35] LABS: Basophils # (auto) 0 10 ^3/uL (0-0.2); Basophils % (auto) 0.4 % (0.0-2.0); Eosinophils # (auto) 0 10 ^3/uL (0-0.8); Hemoglobin 9.4 g/dL (12.2-16.2); Lymphocytes # (auto) 1.2 10 ^3/uL (0.4-5.4); Lymphocytes % (auto) 23.6 % (10.0-50.0); Mean Corpuscular Hemoglobin 32.9 pg (28.0-32.0); Mean Corpuscular Hgb Conc. 34.8 g/dL (32.0-36.0); Mean Corpuscular Volume 94.5 fL (80.0-100.0); Monocytes # (auto) 0.5 10 ^3/uL (0-1.3); Monocytes % (auto) 10.6 % (0.0-12.0); Neutrophils # (auto) 3.2 10 ^3/uL (1.6-8.6); Neutrophils % (auto) 64.4 % (37.0-80.0); Nucleated Red Blood Cells % 0.1 %; Red Blood Cells 2.86 10^6/uL (4.0-5.20); Red Cell Distribution Width 14.7 % (11.8-14.3); White Blood Cell 4.9 10^3/uL (4.4-10.8)
[2021-07-09 06:54] LABS: BUN/Creatinine Ratio 11.9
[2021-07-09 06:58] LABS: Potassium 2.8 mmol/L (3.5-5.1)
[2021-07-09] MEDS ORDERED: POTASSIUM CHL 20 Meq TABLET PO ONE (07:00)
[2021-07-09] MEDS: MIDAZOLAM DRIP 50 mg/50mL 50 ML IV SCH (07:45)
[2021-07-09] MEDS: CALCIUM W/VIT D (600MG/400IU) TAB PO SCH ×2 (08:00→18:40)
[2021-07-09] MEDS: POTASSIUM CHL 20MEQ/100ML 100 ML IV SCH ×4 (08:30→15:02)
[2021-07-09] MEDS: INSULIN LANTUS (GLARGINE) 1 /0.01ml (100units/ml) SC SCH (11:28)
[2021-07-09] MEDS: fentaNYL Drip 2500mCg/250mlNS 250 ML IV SCH (11:30)
[2021-07-09] MEDS: PROPOFOL 100 ML IV SCH (11:30)
[2021-07-09 13:41] VITALS: BP 114/79
[2021-07-09 14:39] VITALS: BP 114/79
[2021-07-09 16:28] VITALS: BP 106/57
[2021-07-09 22:00] VITALS: BP 136/78
[2021-07-10] MEDS: InsuLIN REG 1unit/0.01ml Soln (100units/ml) SC SCH ×6 (04:00→20:00)
[2021-07-10] MEDS: ACCU-CHEK COMFORT CURVE STRIP VI SCH ×6 (04:27→20:00)
[2021-07-10 05:00] VITALS: BP 112/70
[2021-07-10] MEDS: ceFAZolin 1GM/50ML 50 ML IV SCH ×3 (05:33→21:41)
[2021-07-10 08:00] VITALS: BP 118/82
[2021-07-10] MEDS: CALCIUM W/VIT D (600MG/400IU) TAB PO SCH ×2 (08:00→18:28)
[2021-07-10 09:00] VITALS: BP 118/82
[2021-07-10 10:28] LABS: BUN/Creatinine Ratio 12.1; Calcium 8.2 mg/dL (8.5-10.1); Potassium 3.1 mmol/L (3.5-5.1)
[2021-07-10 10:36] LABS: Basophils # (auto) 0 10 ^3/uL (0-0.2); Basophils % (auto) 0.6 % (0.0-2.0); Eosinophils # (auto) 0 10 ^3/uL (0-0.8); Eosinophils % (auto) 1.1 % (0.0-7.0); Hematocrit 28.1 % (36.0-46.0); Hemoglobin 9.7 g/dL (12.2-16.2); Lymphocytes % (auto) 28.3 % (10.0-50.0); Mean Corpuscular Hemoglobin 32.4 pg (28.0-32.0); Mean Corpuscular Hgb Conc. 34.4 g/dL (32.0-36.0); Monocytes # (auto) 0.6 10 ^3/uL (0-1.3); Neutrophils # (auto) 1.9 10 ^3/uL (1.6-8.6); Nucleated Red Blood Cells % 0.5 %; Red Blood Cells 2.99 10^6/uL (4.0-5.20); Red Cell Distribution Width 14.6 % (11.8-14.3); White Blood Cell 3.6 10^3/uL (4.4-10.8)
[2021-07-10] MEDS: ACETAMINOPHEN 325 MG TAB PO PRN (11:25)
[2021-07-10] MEDS: INSULIN LANTUS (GLARGINE) 1 /0.01ml (100units/ml) SC SCH (11:26)
[2021-07-10 13:00] VITALS: BP 128/87
[2021-07-10] MEDS: POTASSIUM CHL 20MEQ/100ML 100 ML IV SCH ×3 (14:04→21:28)
[2021-07-10 17:00] VITALS: BP 111/68
[2021-07-10] MEDS ORDERED: POTASSIUM CHL 20MEQ/100ML 100 ML IV SCH (21:30)
[2021-07-11] MEDS: ACCU-CHEK COMFORT CURVE STRIP VI SCH ×5 (00:20→17:40)
[2021-07-11] MEDS: InsuLIN REG 1unit/0.01ml Soln (100units/ml) SC SCH ×5 (00:26→17:39)
[2021-07-11 05:00] VITALS: BP 130/75
[2021-07-11] MEDS: ACETAMINOPHEN 325 MG TAB PO PRN (06:19)
[2021-07-11] MEDS: ceFAZolin 1GM/50ML 50 ML IV SCH ×2 (06:19→08:43)
[2021-07-11 06:54] LABS: Basophils # (auto) 0 10 ^3/uL (0-0.2); Basophils % (auto) 0.8 % (0.0-2.0); Eosinophils # (auto) 0.1 10 ^3/uL (0-0.8); Eosinophils % (auto) 1.5 % (0.0-7.0); Hematocrit 27.2 % (36.0-46.0); Hemoglobin 9.4 g/dL (12.2-16.2); Lymphocytes # (auto) 1.6 10 ^3/uL (0.4-5.4); Lymphocytes % (auto) 37.7 % (10.0-50.0); Mean Corpuscular Hemoglobin 32.4 pg (28.0-32.0); Mean Corpuscular Hgb Conc. 34.4 g/dL (32.0-36.0); Mean Corpuscular Volume 94.2 fL (80.0-100.0); Monocytes # (auto) 0.7 10 ^3/uL (0-1.3); Monocytes % (auto) 17.4 % (0.0-12.0); Neutrophils # (auto) 1.8 10 ^3/uL (1.6-8.6); Neutrophils % (auto) 42.6 % (37.0-80.0); Nucleated Red Blood Cells % 0.1 %; Red Blood Cells 2.89 10^6/uL (4.0-5.20); Red Cell Distribution Width 14.5 % (11.8-14.3); White Blood Cell 4.1 10^3/uL (4.4-10.8)
[2021-07-11 06:56] LABS: Potassium 3.2 mmol/L (3.5-5.1)
[2021-07-11 06:59] LABS: BUN/Creatinine Ratio 16.1; Calcium 8.2 mg/dL (8.5-10.1)
[2021-07-11] MEDS: CALCIUM W/VIT D (600MG/400IU) TAB PO SCH ×2 (08:26→18:00)
[2021-07-11 09:00] VITALS: BP 105/62
[2021-07-11] MEDS ORDERED: CEFU500T43 PO (10:26)
[2021-07-11] MEDS: INSULIN LANTUS (GLARGINE) 1 /0.01ml (100units/ml) SC SCH (10:44)
[2021-07-11] MEDS: POTASSIUM CHL 20MEQ/100ML 100 ML IV SCH ×2 (11:51→17:16)
[2021-07-11 13:00] VITALS: BP 120/78
[2021-07-11 14:15] VITALS: BP 105/62
[2021-07-11 17:00] VITALS: BP 102/64
[2021-07-11] MEDS ORDERED: ceFAZolin 1GM/50ML 50 ML IV SCH (19:00)
== END 2021-07-11 18:35 | disposition home or self-care (01) | DRG 720 ==
LOC: ER 03:05 → EDBD 03:05 → TELE 06:54 → TELE-CENTR 07-09 13:36
PROVIDERS: ADMIT Nurse Practitioner; ATTEND Internal Medicine Pulmonary Disease
PROC: 5A1945Z Respiratory Ventilation, 24-96 Consecutive Hours (ICD-10-PCS; principal; 2021-07-05)
PROC: 0BH17EZ Insertion of Endotracheal Airway into Trachea, Via Natural or Artificial Opening (ICD-10-PCS; 2021-07-05)
PROC: 06HY33Z Insertion of Infusion Device into Lower Vein, Percutaneous Approach (ICD-10-PCS; 2021-07-05)
DX: A41.9 Sepsis, unspecified organism (principal); J96.01 Acute respiratory failure with hypoxia; R65.21 Severe sepsis with septic shock; G93.41 Metabolic encephalopathy; E11.10 Type 2 diabetes mellitus with ketoacidosis without coma; J15.211 Pneumonia due to Methicillin susceptible Staphylococcus aureus; E86.0 Dehydration; N17.9 Acute kidney failure, unspecified; E87.0 Hyperosmolality and hypernatremia; Z20.822 Contact with and (suspected) exposure to COVID-19; E87.6 Hypokalemia; Z82.49 Family history of ischemic heart disease and other diseases of the circulatory system; Z83.3 Family history of diabetes mellitus
CPT/HCPCS: 31500; 36415; 36600; 51702; 71045; 80048; 80053; 81001; 82010; 82565; 82728; 82805; 82962; 83605; 83735; 83880; 83930; 84132; 84300; 84443; 84484; 84550; 84702; 85025; 85379; 85610; 85730; 87040; 87070; 87077; 87086; 87186; 87205; 87426; 93005; 94002; 94003; 96365; G0378; J0330; J0690; J1815; J2250; J2704; J3480; J7060

== ENCOUNTER 2021-10-13 18:32 | Inpatient (IN) | payer MEDICAID ==
[~2021-10-13] VITALS: Ht 162.6 cm; Wt 63.0 kg
[~2021-10-13 18:32] MED LIST changes: +CEFU500T43 PO; -INSLANTI SC; +INSU100I33 SC; -ONDA-144 PO; +RIV20T PO
[2021-10-13] MEDS ORDERED: SODIUM CHLORIDE 0.9% 2,000 ML IV ONE (19:45)
[2021-10-13 20:21] LABS: Urine Bacteria NONE SEEN /hpf (None Seen); Urine Blood Negative /uL (Negative); Urine Mucus FEW (None Seen); Urine Specific Gravity 1.018 (1.001-1.035); Urine WBC <1 /hpf (0 - 5)
[2021-10-13 23:14] LABS: Basophils # (auto) 0 10 ^3/uL (0-0.2); Basophils % (auto) 0.4 % (0.0-2.0); Eosinophils # (auto) 0 10 ^3/uL (0-0.8); Hemoglobin 14.5 g/dL (12.2-16.2); Lymphocytes # (auto) 1.2 10 ^3/uL (0.4-5.4); Neutrophils # (auto) 9.5 10 ^3/uL (1.6-8.6); White Blood Cell 11.6 10^3/uL (4.4-10.8)
[2021-10-13 23:17] LABS: Hematocrit 48.5 % (36.0-46.0); Lymphocytes % (auto) 10.1 % (10.0-50.0); Mean Corpuscular Hemoglobin 28.7 pg (28.0-32.0); Mean Corpuscular Hgb Conc. 29.9 g/dL (32.0-36.0); Monocytes # (auto) 0.8 10 ^3/uL (0-1.3); Neutrophils % (auto) 82.5 % (37.0-80.0); Nucleated Red Blood Cells % 0.3 %; Red Blood Cells 5.06 10^6/uL (4.0-5.20); Red Cell Distribution Width 18.4 % (11.8-14.3)
[2021-10-13 23:28] LABS: Albumin 3.4 g/dL (3.4-5.0); Calcium 7.6 mg/dL (8.5-10.1); Potassium 3.8 mmol/L (3.5-5.1)
[2021-10-13 23:36] LABS: BUN/Creatinine Ratio 17.1; Bilirubin, Total 0.4 mg/dL (0.2-1.0); Total Protein 7.6 g/dL (6.4-8.2)
[2021-10-14] MEDS ORDERED: DEXTROSE (50%) 50ML SYRG IV PRN
[2021-10-14] MEDS ORDERED: InsuLIN REG 1unit/0.01ml Soln (100units/ml) ONE (00:50)
[2021-10-14 00:57] LABS: Magnesium 2.4 mg/dL (1.6-2.6); Phosphorus 8.8 mg/dL (2.5-4.90)
[2021-10-14] MEDS: D5W/SOD CHL 0.45%/KCL 20MEQ 1,000 ML IV SCH ×4 (01:09→13:58)
[2021-10-14] MEDS: InsuLIN R (HUMAN) 100 UNITS in SODIUM CHL 0.9% 99 ML IV SCH ×5 (01:17→07:11)
[2021-10-14] MEDS: ACCU-CHEK COMFORT CURVE STRIP VI SCH ×16 (01:30→22:45)
[2021-10-14] MEDS ORDERED: ACETAMINOPHEN 325 MG TAB PO PRN (04:00)
[2021-10-14] MEDS ORDERED: cefTRIAXone 1GM/50ML D5W 50 ML IV ONE (04:15)
[2021-10-14] MEDS ORDERED: NITROGLYCERIN 0.4 MG SL TAB SL PRN (04:30)
[2021-10-14] MEDS: SODIUM CHLORIDE 0.9% 1,000 ML IV SCH ×2 (05:45→20:59)
[2021-10-14] MEDS: INSULIN LANTUS (GLARGINE) 1 /0.01ml (100units/ml) SC SCH ×2 (07:50→23:08)
[2021-10-14] MEDS: ONDANSETRON HCL 4 MG/2 ML VIAL IV PRN ×2 (08:31→16:45)
[2021-10-14] MEDS: cefTRIAXone 1GM/50ML D5W 50 ML IV SCH ×2 (08:52→09:38)
[2021-10-14 09:18] LABS: Albumin 1.5 g/dL (3.4-5.0); Anion Gap 16 (5-15); Blood Urea Nitrogen 12 mg/dL (7-18); Chloride 135 mmol/L (98-107); Glucose 264 mg/dL (74-106); Sodium 156 mmol/L (136-145)
[2021-10-14 09:20] LABS: BUN/Creatinine Ratio 30.8; GFR African American 267 mL/min; GFR Non-African American 221 mL/min
[2021-10-14 09:23] LABS: Alanine Aminotransferase 7 U/L (13-56); Alkaline Phosphatase 58 U/L (45-117); Aspartate Aminotransferase 11 U/L (15-37); Bilirubin, Total 0.3 mg/dL (0.2-1.0); Total Protein 3.6 g/dL (6.4-8.2)
[2021-10-14 09:38] LABS: Calcium < 6.0 mg/dL (8.5-10.1); Potassium 2.7 mmol/L (3.5-5.1)
[2021-10-14 09:39] LABS: Carbon Dioxide 5 mmol/L (21-32)
[2021-10-14] MEDS ORDERED: SODIUM BICARBONATE 8.4 % INJ 50ML VIAL IV ONE ×2 (09:45→19:00)
[2021-10-14] MEDS: FAMOTIDINE (10MG/ML) 2ML VL IV SCH ×2 (09:54→23:08)
[2021-10-14] MEDS ORDERED: POTASSIUM CHL 20MEQ/50ML 50 ML IV SCH (10:15)
[2021-10-14] MEDS ORDERED: SODIUM CHLORIDE 0.9% 1,750 ML IV ONE (11:00)
[2021-10-14] MEDS ORDERED: CALCIUM GLUC 1,000mg/50ml-NS 50 ML IV ONE (11:00)
[2021-10-14 11:01] LABS: Hematocrit 41.1 % (36.0-46.0); Hemoglobin 13.5 g/dL (12.2-16.2); Mean Corpuscular Hemoglobin 28.9 pg (28.0-32.0); Mean Corpuscular Hgb Conc. 32.8 g/dL (32.0-36.0); Red Blood Cells 4.66 10^6/uL (4.0-5.20); Red Cell Distribution Width 18.7 % (11.8-14.3); White Blood Cell 8.8 10^3/uL (4.4-10.8)
[2021-10-14 11:03] LABS: Potassium 3.2 mmol/L (3.5-5.1)
[2021-10-14 11:07] LABS: BUN/Creatinine Ratio 16.1; Bilirubin, Total 0.4 mg/dL (0.2-1.0); Total Protein 7.1 g/dL (6.4-8.2)
[2021-10-14 11:23] LABS: Basophils % (manual) 0 (0.0-2.0); Blast Cells 0; Eosinophils % (manual) 0 (0-7); Metamyelocytes % 0; Myelocytes % 0; Promyelocytes % 0; Reactive Lymphocytes 0
[2021-10-14] MEDS: POTASSIUM CHL 20MEQ/50ML 50 ML IV SCH ×4 (12:41→23:10)
[2021-10-14 13:54] LABS: Band Neutrophils % (manual) 11; Lymphocytes % (manual) 21 (10.0-50.0); Monocytes % (manual) 7 (0-12)
[2021-10-14 14:20] LABS: BUN/Creatinine Ratio 11.6; Calcium 8.4 mg/dL (8.5-10.1)
[2021-10-14 18:49] LABS: BUN/Creatinine Ratio 8.7
[2021-10-14 18:51] LABS: Potassium 2.8 mmol/L (3.5-5.1)
[2021-10-14 21:29] LABS: Basophils # (auto) 0 10 ^3/uL (0-0.2); Basophils % (auto) 0.3 % (0.0-2.0); Eosinophils # (auto) 0 10 ^3/uL (0-0.8); Eosinophils % (auto) 0.2 % (0.0-7.0); Hemoglobin 11.8 g/dL (12.2-16.2); Lymphocytes # (auto) 0.6 10 ^3/uL (0.4-5.4); Lymphocytes % (auto) 7.6 % (10.0-50.0); Mean Corpuscular Hemoglobin 28.4 pg (28.0-32.0); Mean Corpuscular Hgb Conc. 32.9 g/dL (32.0-36.0); Mean Corpuscular Volume 86.4 fL (80.0-100.0); Monocytes # (auto) 1.2 10 ^3/uL (0-1.3); Monocytes % (auto) 16.3 % (0.0-12.0); Neutrophils # (auto) 5.8 10 ^3/uL (1.6-8.6); Neutrophils % (auto) 75.6 % (37.0-80.0); Nucleated Red Blood Cells % 0.1 %; Red Blood Cells 4.16 10^6/uL (4.0-5.20); Red Cell Distribution Width 19.2 % (11.8-14.3); White Blood Cell 7.6 10^3/uL (4.4-10.8)
[2021-10-14 21:36] LABS: Calcium 8.2 mg/dL (8.5-10.1); Potassium 4.4 mmol/L (3.5-5.1)
[2021-10-14 21:38] LABS: BUN/Creatinine Ratio 10.1
[2021-10-15] MEDS: ACCU-CHEK COMFORT CURVE STRIP VI SCH ×11 (00:30→23:22)
[2021-10-15] MEDS: D5W/SOD CHL 0.45%/KCL 20MEQ 1,000 ML IV SCH ×3 (02:40→09:20)
[2021-10-15 02:45] LABS: BUN/Creatinine Ratio 4.9; Calcium 8.1 mg/dL (8.5-10.1); Potassium 3.3 mmol/L (3.5-5.1)
[2021-10-15 05:13] LABS: Basophils # (auto) 0.1 10 ^3/uL (0-0.2); Basophils % (auto) 0.7 % (0.0-2.0); Eosinophils # (auto) 0 10 ^3/uL (0-0.8); Eosinophils % (auto) 0.3 % (0.0-7.0); Hematocrit 33.8 % (36.0-46.0); Hemoglobin 11.5 g/dL (12.2-16.2); Lymphocytes % (auto) 12.8 % (10.0-50.0); Mean Corpuscular Hgb Conc. 33.9 g/dL (32.0-36.0); Mean Corpuscular Volume 85.6 fL (80.0-100.0); Monocytes # (auto) 1.1 10 ^3/uL (0-1.3); Neutrophils # (auto) 5.5 10 ^3/uL (1.6-8.6); Neutrophils % (auto) 72.2 % (37.0-80.0); Nucleated Red Blood Cells % 0.2 %; Red Blood Cells 3.95 10^6/uL (4.0-5.20); White Blood Cell 7.7 10^3/uL (4.4-10.8)
[2021-10-15 05:29] LABS: Albumin 2.6 g/dL (3.4-5.0); BUN/Creatinine Ratio 6.4; Calcium 8.3 mg/dL (8.5-10.1); Potassium 3.3 mmol/L (3.5-5.1)
[2021-10-15 05:31] LABS: Bilirubin, Total 0.2 mg/dL (0.2-1.0); Total Protein 5.7 g/dL (6.4-8.2)
[2021-10-15] MEDS: INSULIN LANTUS (GLARGINE) 1 /0.01ml (100units/ml) SC SCH ×2 (07:15→23:32)
[2021-10-15] MEDS: FAMOTIDINE (10MG/ML) 2ML VL IV SCH ×2 (10:21→22:54)
[2021-10-15] MEDS ORDERED: DEXTROSE (50%) 50ML SYRG IV PRN ×3 (12:30→12:45)
[2021-10-15] MEDS ORDERED: InsuLIN R (HUMAN) 100 UNITS in SODIUM CHL 0.9% 99 ML IV SCH (12:30)
[2021-10-15] MEDS: SODIUM CHLORIDE 0.9% 1,000 ML IV SCH (13:20)
[2021-10-15] MEDS ORDERED: ACCU-CHEK COMFORT CURVE STRIP VI SCH ×2 (13:30→16:00)
[2021-10-15] MEDS: MORPHINE SULFATE INJECTION 2 MG/ML SYRG IV PRN ×4 (14:27→23:33)
[2021-10-15 15:08] LABS: BUN/Creatinine Ratio 3.4; Calcium 8.2 mg/dL (8.5-10.1)
[2021-10-15 15:54] LABS: Potassium 2.8 mmol/L (3.5-5.1)
[2021-10-15] MEDS: InsuLIN REG 1unit/0.01ml Soln (100units/ml) SC SCH ×3 (16:00→23:31)
[2021-10-15] MEDS ORDERED: InsuLIN REG 1unit/0.01ml Soln (100units/ml) SC SCH (16:00)
[2021-10-15] MEDS: POTASSIUM CHL 20MEQ/50ML 50 ML IV SCH ×2 (16:37→18:15)
[2021-10-15 16:46] LABS: BUN/Creatinine Ratio 3.6; Calcium 8.2 mg/dL (8.5-10.1)
[2021-10-15 16:53] LABS: Potassium 2.4 mmol/L (3.5-5.1)
[2021-10-15] MEDS ORDERED: D5W/SOD CHLO 0.9% 1,000 ML IV PRN (19:00)
[2021-10-15] MEDS ORDERED: MAGNESIUM SULFATE 1GM/100ML 100 ML IV ONE (19:00)
[2021-10-15] MEDS: POTASSIUM CHL 20MEQ/100ML 100 ML IV SCH ×3 (20:36→23:00)
[2021-10-15] MEDS: SOD CHL 0.9%/ KCL 20MEQ 1,000 ML IV SCH (20:38)
[2021-10-15 21:46] LABS: BUN/Creatinine Ratio 2.6; Calcium 8.3 mg/dL (8.5-10.1); Potassium 3.8 mmol/L (3.5-5.1)
[2021-10-15 21:49] LABS: Phosphorus 1.5 mg/dL (2.5-4.90)
[2021-10-16] MEDS: POTASSIUM CHL 20MEQ/100ML 100 ML IV SCH (00:23)
[2021-10-16 02:30] LABS: BUN/Creatinine Ratio 3.8; Calcium 8.9 mg/dL (8.5-10.1)
[2021-10-16] MEDS: SOD CHL 0.9%/ KCL 20MEQ 1,000 ML IV SCH ×2 (03:13→13:09)
[2021-10-16] MEDS: InsuLIN REG 1unit/0.01ml Soln (100units/ml) SC SCH ×5 (04:00→21:39)
[2021-10-16] MEDS: ACCU-CHEK COMFORT CURVE STRIP VI SCH ×5 (04:00→21:00)
[2021-10-16] MEDS: MORPHINE SULFATE INJECTION 2 MG/ML SYRG IV PRN ×3 (06:23→21:01)
[2021-10-16] MEDS: INSULIN LANTUS (GLARGINE) 1 /0.01ml (100units/ml) SC SCH ×2 (06:53→21:40)
[2021-10-16] MEDS: ONDANSETRON HCL 4 MG/2 ML VIAL IV PRN (08:46)
[2021-10-16 10:07] LABS: Potassium 3.1 mmol/L (3.5-5.1)
[2021-10-16 10:08] LABS: Basophils # (auto) 0 10 ^3/uL (0-0.2); Basophils % (auto) 0.6 % (0.0-2.0); Eosinophils # (auto) 0 10 ^3/uL (0-0.8); Eosinophils % (auto) 0.9 % (0.0-7.0); Hematocrit 34.5 % (36.0-46.0); Hemoglobin 11.8 g/dL (12.2-16.2); Lymphocytes # (auto) 1.7 10 ^3/uL (0.4-5.4); Lymphocytes % (auto) 31.6 % (10.0-50.0); Mean Corpuscular Hgb Conc. 34.3 g/dL (32.0-36.0); Mean Corpuscular Volume 84.6 fL (80.0-100.0); Monocytes # (auto) 0.6 10 ^3/uL (0-1.3); Monocytes % (auto) 11.8 % (0.0-12.0); Neutrophils % (auto) 55.1 % (37.0-80.0); Nucleated Red Blood Cells % 0.2 %; Red Blood Cells 4.08 10^6/uL (4.0-5.20); Red Cell Distribution Width 19.4 % (11.8-14.3); White Blood Cell 5.4 10^3/uL (4.4-10.8)
[2021-10-16] MEDS: cefTRIAXone 1GM/50ML D5W 50 ML IV SCH (10:12)
[2021-10-16] MEDS: FAMOTIDINE (10MG/ML) 2ML VL IV SCH ×2 (10:12→21:02)
[2021-10-16 10:13] LABS: BUN/Creatinine Ratio 5.4; Calcium 8.3 mg/dL (8.5-10.1)
[2021-10-16] MEDS ORDERED: ACETAMINOPHEN 500 MG TAB PO PRN (11:00)
[2021-10-16] MEDS ORDERED: REMDESIVIR PER PHARMACY 0 ML IV SCH (11:00)
[2021-10-16] MEDS: AZITHROMYCIN 500MG/ 250ML 250 ML IV SCH (13:09)
[2021-10-16] MEDS: IVERMECTIN 3 MG TAB PO SCH (13:11)
[2021-10-16 13:18] LABS: Thyroid Stimulating Hormone 0.81 uIU/mL (0.358-3.74)
[2021-10-16 14:34] VITALS: BP 122/92
[2021-10-16] MEDS: HYDROcodone-ACET 5/325MG TAB PO PRN (15:21)
[2021-10-16 15:41] LABS: Albumin 2.4 g/dL (3.4-5.0); Calcium 8.1 mg/dL (8.5-10.1); Magnesium 2.9 mg/dL (1.6-2.6)
[2021-10-16 15:50] LABS: BUN/Creatinine Ratio 11.5; Bilirubin, Total 0.2 mg/dL (0.2-1.0); CRP High Sensitivity 1.4 mg/dL (< 0.3); Total Protein 5.6 g/dL (6.4-8.2)
[2021-10-16 16:10] VITALS: BP 121/81
[2021-10-16 16:13] LABS: Potassium 2.9 mmol/L (3.5-5.1)
[2021-10-16] MEDS: POTASSIUM CHL 10MEQ/50ML 50 ML IV SCH ×3 (17:24→23:16)
[2021-10-16] MEDS: RIVAROXABAN 20 MG TAB PO SCH (17:24)
[2021-10-16 20:00] VITALS: BP 136/89
[2021-10-16 20:20] LABS: BUN/Creatinine Ratio 5.7; Potassium 3.2 mmol/L (3.5-5.1)
[2021-10-16 22:00] VITALS: BP 136/89
[2021-10-16] MEDS ORDERED: ENOXAPARIN SOD 40 MG/0.4 ML SYRINGE SC SCH (22:00)
[2021-10-16] MEDS: ALBUTEROL SULF HFA 90MCG INH 200DOSE IN PRN (22:38)
[2021-10-17 00:01] LABS: BUN/Creatinine Ratio 6.8; Calcium 7.9 mg/dL (8.5-10.1); Potassium 3.3 mmol/L (3.5-5.1)
[2021-10-17] MEDS: ACCU-CHEK COMFORT CURVE STRIP VI SCH ×6 (00:15→21:20)
[2021-10-17] MEDS: POTASSIUM CHL 10MEQ/50ML 50 ML IV SCH ×5 (00:17→03:33)
[2021-10-17] MEDS: HYDROcodone-ACET 5/325MG TAB PO PRN ×2 (02:14→21:05)
[2021-10-17 03:01] LABS: BUN/Creatinine Ratio 3.6; Calcium 8.2 mg/dL (8.5-10.1); Potassium 3.5 mmol/L (3.5-5.1)
[2021-10-17] MEDS: InsuLIN REG 1unit/0.01ml Soln (100units/ml) SC SCH ×6 (04:00→21:19)
[2021-10-17 05:00] VITALS: BP 112/79
[2021-10-17 09:00] VITALS: BP 129/98
[2021-10-17] MEDS: INSULIN LANTUS (GLARGINE) 1 /0.01ml (100units/ml) SC SCH ×2 (09:00→21:19)
[2021-10-17] MEDS: cefTRIAXone 1GM/50ML D5W 50 ML IV SCH (09:00)
[2021-10-17 09:08] LABS: Hematocrit 35.1 % (36.0-46.0); Mean Corpuscular Hemoglobin 29.2 pg (28.0-32.0); Mean Corpuscular Hgb Conc. 34.3 g/dL (32.0-36.0); Mean Corpuscular Volume 85.2 fL (80.0-100.0); Red Blood Cells 4.12 10^6/uL (4.0-5.20)
[2021-10-17] MEDS: CHOLECALCIFEROL (VITD3) 2,000 UNIT CAP/TAB PO SCH (09:21)
[2021-10-17] MEDS: ALBUTEROL SULF HFA 90MCG INH 200DOSE IN PRN ×2 (09:22→19:47)
[2021-10-17] MEDS: FAMOTIDINE (10MG/ML) 2ML VL IV SCH ×2 (09:22→21:20)
[2021-10-17] MEDS: ZINC SULFATE 220mg CAP or TAB PO SCH (09:22)
[2021-10-17] MEDS: ASCORBIC ACID 1,000 MG TAB PO SCH (09:22)
[2021-10-17] MEDS: DexAMETHasone SOD PHOS 10MG/1ML VIAL INJ IV SCH (09:22)
[2021-10-17] MEDS: IVERMECTIN 3 MG TAB PO SCH (09:23)
[2021-10-17 09:27] LABS: Albumin 2.3 g/dL (3.4-5.0); Anion Gap 6 (5-15); BUN/Creatinine Ratio 5.6; Blood Urea Nitrogen 2 mg/dL (7-18); Calcium 8.4 mg/dL (8.5-10.1); Carbon Dioxide 24 mmol/L (21-32); Chloride 117 mmol/L (98-107); GFR African American 293 mL/min; GFR Non-African American 242 mL/min; Glucose 111 mg/dL (74-106); Potassium 3.5 mmol/L (3.5-5.1); Sodium 147 mmol/L (136-145)
[2021-10-17 09:28] LABS: Red Cell Distribution Width 20.2 % (11.8-14.3)
[2021-10-17 09:29] LABS: Band Neutrophils % (manual) 0; Basophils % (manual) 0 (0.0-2.0); Blast Cells 0; Eosinophils % (manual) 0 (0-7); Metamyelocytes % 0; Myelocytes % 0; Promyelocytes % 0; Reactive Lymphocytes 0
[2021-10-17 09:38] LABS: Alanine Aminotransferase 14 U/L (13-56); Alkaline Phosphatase 91 U/L (45-117); Aspartate Aminotransferase 22 U/L (15-37); Bilirubin, Total 0.3 mg/dL (0.2-1.0); Total Protein 5.9 g/dL (6.4-8.2)
[2021-10-17] MEDS ORDERED: ASCO10003 PO (10:35)
[2021-10-17] MEDS ORDERED: CHOL1CAP47 PO (10:35)
[2021-10-17] MEDS ORDERED: IVER3TAB PO (10:35)
[2021-10-17] MEDS ORDERED: LEVO750T8 PO (10:35)
[2021-10-17] MEDS: AZITHROMYCIN 500MG/ 250ML 250 ML IV SCH (12:43)
[2021-10-17 12:50] LABS: Lymphocytes % (manual) 48 (10.0-50.0); Monocytes % (manual) 8 (0-12)
[2021-10-17 13:16] VITALS: BP 124/95
[2021-10-17 16:13] LABS: BUN/Creatinine Ratio 4.5; Calcium 8.9 mg/dL (8.5-10.1); Potassium 3.8 mmol/L (3.5-5.1)
[2021-10-17 17:00] VITALS: BP 115/78
[2021-10-17] MEDS: RIVAROXABAN 20 MG TAB PO SCH (17:31)
[2021-10-17 20:00] VITALS: BP 133/96
[2021-10-17 22:00] VITALS: BP 133/96
[2021-10-18 05:00] VITALS: BP 105/72
[2021-10-18] MEDS: InsuLIN REG 1unit/0.01ml Soln (100units/ml) SC SCH ×5 (06:37→16:06)
[2021-10-18] MEDS: ACCU-CHEK COMFORT CURVE STRIP VI SCH ×5 (06:38→16:05)
[2021-10-18] MEDS: INSULIN LANTUS (GLARGINE) 1 /0.01ml (100units/ml) SC SCH (06:43)
[2021-10-18 08:00] VITALS: BP 98/56
[2021-10-18] MEDS: ZINC SULFATE 220mg CAP or TAB PO SCH (10:29)
[2021-10-18] MEDS: IVERMECTIN 3 MG TAB PO SCH (10:29)
[2021-10-18] MEDS: AZITHROMYCIN 500MG/ 250ML 250 ML IV SCH (10:29)
[2021-10-18] MEDS: cefTRIAXone 1GM/50ML D5W 50 ML IV SCH (10:29)
[2021-10-18] MEDS: ASCORBIC ACID 1,000 MG TAB PO SCH (10:29)
[2021-10-18] MEDS: DexAMETHasone SOD PHOS 10MG/1ML VIAL INJ IV SCH (10:29)
[2021-10-18] MEDS: FAMOTIDINE (10MG/ML) 2ML VL IV SCH (10:29)
[2021-10-18] MEDS: CHOLECALCIFEROL (VITD3) 2,000 UNIT CAP/TAB PO SCH (10:30)
[2021-10-18] MEDS: HYDROcodone-ACET 5/325MG TAB PO PRN ×2 (11:45→18:26)
[2021-10-18 12:00] VITALS: BP 112/80
[2021-10-18] MEDS: ALBUTEROL SULF HFA 90MCG INH 200DOSE IN PRN (15:33)
[2021-10-18 16:00] VITALS: BP 128/95
[2021-10-18] MEDS: RIVAROXABAN 20 MG TAB PO SCH (17:33)
== END 2021-10-18 19:00 | disposition home or self-care (01) | DRG 720 ==
LOC: EDUNIT# 18:32 → EDBD 18:32 → ER 18:37 → OVERFLOW 10-14 04:16 → TELE-WESTW 10-16 11:53
PROVIDERS: ADMIT Nurse Practitioner Family; ATTEND Internal Medicine Pulmonary Disease
PROC: 05HB33Z Insertion of Infusion Device into Right Basilic Vein, Percutaneous Approach (ICD-10-PCS; principal; 2021-10-14)
PROC: B54MZZA Ultrasonography of Right Upper Extremity Veins, Guidance (ICD-10-PCS; 2021-10-14)
DX: A41.89 Other specified sepsis (principal); J12.82 Pneumonia due to coronavirus disease 2019; E11.10 Type 2 diabetes mellitus with ketoacidosis without coma; U07.1 COVID-19; E46 Unspecified protein-calorie malnutrition; E87.0 Hyperosmolality and hypernatremia; E83.51 Hypocalcemia; E11.65 Type 2 diabetes mellitus with hyperglycemia; E87.6 Hypokalemia; J98.11 Atelectasis; Z82.49 Family history of ischemic heart disease and other diseases of the circulatory system; Z83.3 Family history of diabetes mellitus; Z68.23 Body mass index [BMI] 23.0-23.9, adult
CPT/HCPCS: 36415; 36600; 71045; 71250; 74176; 80048; 80053; 81001; 82010; 82306; 82728; 82805; 82962; 83036; 83605; 83615; 83735; 83930; 84100; 84443; 85007; 85025; 85027; 85379; 86141; 87426; 93005; 94640; 96361; 96374; 99291; G0378; J0696; J1100; J1815; J2405; J3480; J3490

== ENCOUNTER 2021-10-25 05:57 | Inpatient (IN) | payer MEDICAID ==
[~2021-10-25] VITALS: Ht 165.1 cm; Wt 59.9 kg
[~2021-10-25 05:57] MED LIST changes: +ASCO10003 PO; -CEFU500T43 PO; +CHOL1CAP47 PO; +IVER3TAB PO; +LEVO750T8 PO
[2021-10-25] MEDS ORDERED: DEXTROSE (50%) 50ML SYRG IV PRN (07:30)
[2021-10-25] MEDS: SODIUM CHLORIDE 0.9% 1,000 ML IV SCH ×6 (07:30→18:30)
[2021-10-25] MEDS ORDERED: INSULIN LANTUS (GLARGINE) 1 /0.01ml (100units/ml) SC ONE (07:30)
[2021-10-25] MEDS: ACCU-CHEK COMFORT CURVE STRIP VI SCH ×11 (08:50→22:20)
[2021-10-25] MEDS: InsuLIN R (HUMAN) 100 UNITS in SODIUM CHL 0.9% 99 ML IV SCH (09:25)
[2021-10-25 09:40] LABS: Basophils # (auto) 0.1 10 ^3/uL (0-0.2); Basophils % (auto) 0.5 % (0.0-2.0); Eosinophils # (auto) 0 10 ^3/uL (0-0.8); Eosinophils % (auto) 0.1 % (0.0-7.0); Hemoglobin 13.8 g/dL (12.2-16.2); Lymphocytes % (auto) 9.4 % (10.0-50.0); Mean Corpuscular Hgb Conc. 29.9 g/dL (32.0-36.0); Mean Corpuscular Volume 93.5 fL (80.0-100.0); Monocytes # (auto) 0.7 10 ^3/uL (0-1.3); Monocytes % (auto) 3.1 % (0.0-12.0); Neutrophils # (auto) 18.7 10 ^3/uL (1.6-8.6); Neutrophils % (auto) 86.9 % (37.0-80.0); Nucleated Red Blood Cells % 0.1 %; Red Blood Cells 4.92 10^6/uL (4.0-5.20); Red Cell Distribution Width 20.2 % (11.8-14.3); White Blood Cell 21.5 10^3/uL (4.4-10.8)
[2021-10-25] MEDS ORDERED: MORPHINE SULFATE INJECTION 2 MG/ML SYRG IV ONE (10:30)
[2021-10-25] MEDS ORDERED: ONDANSETRON HCL 4 MG/2 ML VIAL IV ONE (10:30)
[2021-10-25] MEDS ORDERED: SODIUM CHLORIDE 0.9% 1,000 ML IV SCH (13:30)
[2021-10-25 14:12] LABS: Albumin 3.1 g/dL (3.4-5.0); Calcium 7.3 mg/dL (8.5-10.1); Magnesium 2.7 mg/dL (1.6-2.6); Potassium 3.8 mmol/L (3.5-5.1)
[2021-10-25 14:15] LABS: BUN/Creatinine Ratio 32.4; Bilirubin, Total 0.3 mg/dL (0.2-1.0); Phosphorus 3.4 mg/dL (2.5-4.90); Total Protein 6.9 g/dL (6.4-8.2)
[2021-10-25] MEDS ORDERED: PROMETHAZINE HCL 25 MG/ML 1ML IV ONE (15:30)
[2021-10-25] MEDS ORDERED: SODIUM BICARBONATE 8.4 % INJ 50ML VIAL IV ONE (18:30)
[2021-10-25] MEDS ORDERED: ENOXAPARIN SOD 40 MG/0.4 ML SYRINGE SC ONE (18:30)
[2021-10-25] MEDS ORDERED: SOD CHL 0.9%/ KCL 20MEQ 1,000 ML IV PRN (18:30)
[2021-10-25] MEDS ORDERED: metroNIDAZOLE 500MG/100ML 100 ML IV ONE (18:30)
[2021-10-25] MEDS ORDERED: D5W/SOD CHLO 0.9% 1,000 ML IV PRN (18:30)
[2021-10-25] MEDS ORDERED: levoFLOXacin 750MG 150 ML IV ONE (18:30)
[2021-10-25] MEDS ORDERED: SODIUM CHLORIDE 0.9% 3,000 ML IV ONE (18:30)
[2021-10-25] MEDS ORDERED: LACTATED RINGER'S 2,000 ML IV ONE (18:30)
[2021-10-25] MEDS ORDERED: MORPHINE SULFATE INJECTION 2 MG/ML SYRG IV PRN ×3 (18:45→22:30)
[2021-10-25] MEDS ORDERED: NITROGLYCERIN 0.4 MG SL TAB SL PRN ×2 (18:45→22:30)
[2021-10-25 19:45] LABS: BUN/Creatinine Ratio 28.6; Calcium 7.7 mg/dL (8.5-10.1); Potassium 3.6 mmol/L (3.5-5.1)
[2021-10-25] MEDS ORDERED: PANTOPRAZOLE 40 MG/10 ML VIAL INJ IV ONE (22:15)
[2021-10-25] MEDS ORDERED: MULTIPLE VITAMINS W/ MINERALS TAB PO ONE (22:15)
[2021-10-25] MEDS ORDERED: DOCUSATE SOD 100 MG CAP PO PRN (22:30)
[2021-10-25] MEDS ORDERED: TEMAZEPAM 15 MG CAP PO PRN (22:30)
[2021-10-25] MEDS ORDERED: ACETAMINOPHEN 325 MG TAB PO PRN (22:30)
[2021-10-25] MEDS ORDERED: HYDROcodone-ACET 5/325MG TAB PO PRN (22:30)
[2021-10-25 23:20] LABS: Cholesterol 106 mg/dL (< 200)
[2021-10-25 23:24] LABS: HDL Cholesterol 36 mg/dL (40-59); LDL Cholesterol 59 mg/dL (< 100); Triglycerides 144 mg/dL (< 150)
[2021-10-26] MEDS ORDERED: DEXTROSE (50%) 50ML SYRG IV PRN ×3 (01:00→11:00)
[2021-10-26] MEDS: ACCU-CHEK COMFORT CURVE STRIP VI SCH ×6 (01:30→18:05)
[2021-10-26] MEDS ORDERED: SODIUM BICARBONATE 8.4 % INJ 50ML VIAL IV ONE (01:45)
[2021-10-26] MEDS: metroNIDAZOLE 500MG/100ML 100 ML IV SCH ×2 (02:00→09:32)
[2021-10-26] MEDS: D5W/SOD CHL 0.45% 1,000 ML IV SCH ×3 (02:11→09:55)
[2021-10-26 02:43] LABS: BUN/Creatinine Ratio 24.2; Calcium 7.5 mg/dL (8.5-10.1)
[2021-10-26] MEDS: METOCLOPRAMIDE HCL 5MG/ml INJ 2ml VIAL IV PRN ×2 (03:06→20:12)
[2021-10-26] MEDS: InsuLIN REG 1unit/0.01ml Soln (100units/ml) SC SCH ×4 (04:00→18:09)
[2021-10-26] MEDS ORDERED: ACCU-CHEK COMFORT CURVE STRIP VI SCH (04:00)
[2021-10-26] MEDS ORDERED: InsuLIN REG 1unit/0.01ml Soln (100units/ml) SC SCH (04:00)
[2021-10-26] MEDS: SODIUM CHLORIDE 0.9% 1,000 ML IV SCH (04:30)
[2021-10-26] MEDS: InsuLIN R (HUMAN) 100 UNITS in SODIUM CHL 0.9% 99 ML IV SCH (07:30)
[2021-10-26 07:47] LABS: Basophils # (auto) 0.1 10 ^3/uL (0-0.2); Basophils % (auto) 0.5 % (0.0-2.0); Eosinophils # (auto) 0 10 ^3/uL (0-0.8); Hemoglobin 9.6 g/dL (12.2-16.2); Lymphocytes # (auto) 1.4 10 ^3/uL (0.4-5.4); Lymphocytes % (auto) 11.3 % (10.0-50.0); Mean Corpuscular Hemoglobin 28.8 pg (28.0-32.0); Mean Corpuscular Hgb Conc. 33.2 g/dL (32.0-36.0); Mean Corpuscular Volume 86.6 fL (80.0-100.0); Monocytes # (auto) 0.8 10 ^3/uL (0-1.3); Monocytes % (auto) 6.1 % (0.0-12.0); Neutrophils # (auto) 10.3 10 ^3/uL (1.6-8.6); Neutrophils % (auto) 82.1 % (37.0-80.0); Nucleated Red Blood Cells % 0.1 %; Red Blood Cells 3.35 10^6/uL (4.0-5.20); Red Cell Distribution Width 20.5 % (11.8-14.3); White Blood Cell 12.5 10^3/uL (4.4-10.8)
[2021-10-26 08:00] LABS: INR 1.09 (0.9-1.15); Partial Thromboplastin Time 25.4 sec (23.6-33.0)
[2021-10-26] MEDS ORDERED: CALCIUM W/VIT D (600MG/400IU) TAB PO SCH (08:00)
[2021-10-26 08:18] LABS: Albumin 2.5 g/dL (3.4-5.0); Calcium 7.6 mg/dL (8.5-10.1); Magnesium 2.3 mg/dL (1.6-2.6)
[2021-10-26 08:24] LABS: BUN/Creatinine Ratio 17.3; Bilirubin, Total 0.5 mg/dL (0.2-1.0); Total Protein 5.5 g/dL (6.4-8.2)
[2021-10-26 08:32] LABS: Phosphorus 0.5 mg/dL (2.5-4.90); Potassium 2.3 mmol/L (3.5-5.1)
[2021-10-26] MEDS ORDERED: POTASSIUM EFFERVESENT TAB 25 MEQ PO ONE (09:15)
[2021-10-26] MEDS: levoFLOXacin 750MG 150 ML IV SCH (09:32)
[2021-10-26] MEDS: ENOXAPARIN SOD 40 MG/0.4 ML SYRINGE SC SCH (09:33)
[2021-10-26] MEDS: INSULIN LANTUS (GLARGINE) 1 /0.01ml (100units/ml) SC SCH (09:35)
[2021-10-26] MEDS ORDERED: MULTIPLE VITAMINS W/ MINERALS TAB PO SCH (10:00)
[2021-10-26] MEDS ORDERED: PANTOPRAZOLE 40 MG/10 ML VIAL INJ IV SCH (10:00)
[2021-10-26] MEDS ORDERED: CHOLECALCIFEROL (VITD3) 2,000 UNIT CAP/TAB PO SCH (10:00)
[2021-10-26] MEDS ORDERED: ASPirin 81 mg TAB PO SCH (10:00)
[2021-10-26] MEDS ORDERED: POTASSIUM PHOSPHATE 44 MEQ in D5W 5% 250 ML IV ONE (10:45)
[2021-10-26] MEDS ORDERED: POTASSIUM CHLORIDE 20 MEQ in D5W 5% 1,000 ML IV SCH (11:00)
[2021-10-26 12:59] LABS: Urine Bacteria NONE SEEN /hpf (None Seen); Urine Blood Negative /uL (Negative); Urine Specific Gravity 1.011 (1.001-1.035); Urine WBC 2 /hpf (0 - 5)
[2021-10-26 13:10] LABS: Alcohol, Urine < 3.0 mg/dL (0-10); Amphetamine Screen, Urine NEGATIVE (NEGATIVE); Barbiturate Scree,Urine NEGATIVE (NEGATIVE); Benzodiazephine Screen, Urine NEGATIVE (NEGATIVE); Cannabinoid Screen, Urine NEGATIVE (NEGATIVE); Cocaine Screen, Urine NEGATIVE (NEGATIVE); Opiate Scree,Urine NEGATIVE (NEGATIVE); Phencyclidine Screen, Urine NEGATIVE (NEGATIVE)
[2021-10-26 20:26] LABS: BUN/Creatinine Ratio 9.6; Calcium 7.7 mg/dL (8.5-10.1); Phosphorus 2.4 mg/dL (2.5-4.90)
[2021-10-26 20:45] LABS: Potassium 2.7 mmol/L (3.5-5.1)
[2021-10-26] MEDS ORDERED: ATORVASTATIN 20 MG TAB PO SCH (22:00)
[2021-10-27] MEDS: ACCU-CHEK COMFORT CURVE STRIP VI SCH ×4 (00:09→19:56)
[2021-10-27] MEDS: InsuLIN REG 1unit/0.01ml Soln (100units/ml) SC SCH ×4 (00:15→20:00)
[2021-10-27 05:53] LABS: Basophils # (auto) 0.1 10 ^3/uL (0-0.2); Basophils % (auto) 0.9 % (0.0-2.0); Eosinophils # (auto) 0 10 ^3/uL (0-0.8); Eosinophils % (auto) 0.6 % (0.0-7.0); Hematocrit 27.9 % (36.0-46.0); Hemoglobin 9.4 g/dL (12.2-16.2); Lymphocytes # (auto) 2.1 10 ^3/uL (0.4-5.4); Lymphocytes % (auto) 32.7 % (10.0-50.0); Mean Corpuscular Hemoglobin 28.2 pg (28.0-32.0); Mean Corpuscular Hgb Conc. 33.6 g/dL (32.0-36.0); Monocytes # (auto) 0.5 10 ^3/uL (0-1.3); Monocytes % (auto) 7.4 % (0.0-12.0); Neutrophils # (auto) 3.8 10 ^3/uL (1.6-8.6); Neutrophils % (auto) 58.4 % (37.0-80.0); Nucleated Red Blood Cells % 0.1 %; Red Blood Cells 3.32 10^6/uL (4.0-5.20); White Blood Cell 6.5 10^3/uL (4.4-10.8)
[2021-10-27 06:21] LABS: Phosphorus 1.3 mg/dL (2.5-4.90)
[2021-10-27 06:44] LABS: Potassium 2.4 mmol/L (3.5-5.1)
[2021-10-27] MEDS: ENOXAPARIN SOD 40 MG/0.4 ML SYRINGE SC SCH (08:24)
[2021-10-27] MEDS: levoFLOXacin 750MG 150 ML IV SCH (08:27)
[2021-10-27] MEDS: INSULIN LANTUS (GLARGINE) 1 /0.01ml (100units/ml) SC SCH (10:41)
[2021-10-27] MEDS: POTASSIUM CHL 10MEQ/50ML 50 ML IV SCH ×8 (12:14→18:52)
[2021-10-27 18:00] LABS: BUN/Creatinine Ratio 3.9; Calcium 8.2 mg/dL (8.5-10.1); Potassium 3.4 mmol/L (3.5-5.1)
[2021-10-28] MEDS: ACCU-CHEK COMFORT CURVE STRIP VI SCH ×5 (00:26→23:53)
[2021-10-28] MEDS: METOCLOPRAMIDE HCL 5MG/ml INJ 2ml VIAL IV PRN (02:01)
[2021-10-28 04:37] LABS: Basophils # (auto) 0 10 ^3/uL (0-0.2); Basophils % (auto) 0.8 % (0.0-2.0); Eosinophils # (auto) 0 10 ^3/uL (0-0.8); Eosinophils % (auto) 0.6 % (0.0-7.0); Hemoglobin 8.1 g/dL (12.2-16.2); Lymphocytes # (auto) 2.1 10 ^3/uL (0.4-5.4); Lymphocytes % (auto) 53.2 % (10.0-50.0); Mean Corpuscular Hgb Conc. 33.9 g/dL (32.0-36.0); Mean Corpuscular Volume 85.5 fL (80.0-100.0); Monocytes # (auto) 0.3 10 ^3/uL (0-1.3); Monocytes % (auto) 7.6 % (0.0-12.0); Neutrophils # (auto) 1.5 10 ^3/uL (1.6-8.6); Neutrophils % (auto) 37.8 % (37.0-80.0); Nucleated Red Blood Cells % 0.1 %; Red Blood Cells 2.81 10^6/uL (4.0-5.20); Red Cell Distribution Width 20.8 % (11.8-14.3)
[2021-10-28 04:45] LABS: Albumin 2.3 g/dL (3.4-5.0); Calcium 7.7 mg/dL (8.5-10.1)
[2021-10-28 04:48] LABS: BUN/Creatinine Ratio 7.3; Bilirubin, Total 0.3 mg/dL (0.2-1.0)
[2021-10-28 04:50] LABS: Potassium 2.6 mmol/L (3.5-5.1)
[2021-10-28] MEDS ORDERED: POTASSIUM CHL 10MEQ/50ML 50 ML IV ONE (05:09)
[2021-10-28] MEDS ORDERED: POTASSIUM CHL 10MEQ/50ML 100 ML IV ONE (05:11)
[2021-10-28] MEDS: InsuLIN REG 1unit/0.01ml Soln (100units/ml) SC SCH ×5 (05:25→23:55)
[2021-10-28] MEDS: POTASSIUM CHL 10MEQ/50ML 50 ML IV SCH ×6 (05:29→10:37)
[2021-10-28] MEDS ORDERED: LEVE100012 PO (08:57)
[2021-10-28] MEDS: INSULIN LANTUS (GLARGINE) 1 /0.01ml (100units/ml) SC SCH (10:08)
[2021-10-28] MEDS: levoFLOXacin 750MG 150 ML IV SCH (10:10)
[2021-10-28] MEDS: ENOXAPARIN SOD 40 MG/0.4 ML SYRINGE SC SCH (10:10)
[2021-10-29 01:29] VITALS: BP 122/71
[2021-10-29 05:00] VITALS: BP_SYST 115; BP_SYST 133; BP_DIAS 70; BP_DIAS 76
[2021-10-29] MEDS: ACCU-CHEK COMFORT CURVE STRIP VI SCH ×3 (05:09→19:01)
[2021-10-29] MEDS: InsuLIN REG 1unit/0.01ml Soln (100units/ml) SC SCH ×3 (05:12→19:01)
[2021-10-29 08:54] VITALS: BP 110/65
[2021-10-29 10:01] LABS: Basophils # (auto) 0 10 ^3/uL (0-0.2); Eosinophils # (auto) 0 10 ^3/uL (0-0.8); Eosinophils % (auto) 1.5 % (0.0-7.0); Lymphocytes # (auto) 1.4 10 ^3/uL (0.4-5.4); Monocytes # (auto) 0.2 10 ^3/uL (0-1.3); Neutrophils # (auto) 1.1 10 ^3/uL (1.6-8.6); White Blood Cell 2.8 10^3/uL (4.4-10.8)
[2021-10-29 10:03] LABS: Basophils % (auto) 1.4 % (0.0-2.0); Hematocrit 24.3 % (36.0-46.0); Hemoglobin 8.2 g/dL (12.2-16.2); Mean Corpuscular Hemoglobin 29.2 pg (28.0-32.0); Mean Corpuscular Hgb Conc. 33.9 g/dL (32.0-36.0); Mean Corpuscular Volume 86.1 fL (80.0-100.0); Monocytes % (auto) 7.2 % (0.0-12.0); Neutrophils % (auto) 38.9 % (37.0-80.0); Nucleated Red Blood Cells % 0.3 %; Red Blood Cells 2.82 10^6/uL (4.0-5.20)
[2021-10-29 10:15] LABS: Red Cell Distribution Width 20.5 % (11.8-14.3)
[2021-10-29 10:20] LABS: Albumin 2.4 g/dL (3.4-5.0); Calcium 8.2 mg/dL (8.5-10.1); Potassium 3.6 mmol/L (3.5-5.1)
[2021-10-29] MEDS: levoFLOXacin 750MG 150 ML IV SCH (10:23)
[2021-10-29 10:24] LABS: BUN/Creatinine Ratio 9.3; Bilirubin, Total 0.2 mg/dL (0.2-1.0); Total Protein 5.1 g/dL (6.4-8.2)
[2021-10-29] MEDS: ENOXAPARIN SOD 40 MG/0.4 ML SYRINGE SC SCH (10:24)
[2021-10-29] MEDS: INSULIN LANTUS (GLARGINE) 1 /0.01ml (100units/ml) SC SCH (10:26)
[2021-10-29] MEDS ORDERED: INSULIN LANTUS (GLARGINE) 1 /0.01ml (100units/ml) SC ONE (11:00)
[2021-10-29 13:00] VITALS: BP 114/70
[2021-10-29] MEDS ORDERED: PANT40TA2 PO (13:28)
[2021-10-29 17:01] VITALS: BP 126/85
[2021-10-29 17:38] VITALS: BP 126/85
[2021-10-30] MEDS ORDERED: INSULIN LANTUS (GLARGINE) 1 /0.01ml (100units/ml) SC SCH (10:00)
== END 2021-10-29 22:40 | disposition home health service (06) | DRG 420 ==
LOC: EDBD 05:57 → ER 05:57 → TELE 18:35 → TELE-EAST 10-28 23:46
PROVIDERS: ADMIT Hospitalist; ATTEND Internal Medicine
DX: E10.10 Type 1 diabetes mellitus with ketoacidosis without coma (principal); N17.9 Acute kidney failure, unspecified; J18.0 Bronchopneumonia, unspecified organism; E10.40 Type 1 diabetes mellitus with diabetic neuropathy, unspecified; E87.8 Other disorders of electrolyte and fluid balance, not elsewhere classified; E88.09 Other disorders of plasma-protein metabolism, not elsewhere classified; E86.0 Dehydration; K52.9 Noninfective gastroenteritis and colitis, unspecified; N39.0 Urinary tract infection, site not specified; Z91.19 Patient's noncompliance with other medical treatment and regimen; F32.A Depression, unspecified; K21.00 Gastro-esophageal reflux disease with esophagitis, without bleeding; K31.9 Disease of stomach and duodenum, unspecified; E55.9 Vitamin D deficiency, unspecified; Z88.1 Allergy status to other antibiotic agents; Z83.3 Family history of diabetes mellitus; Z82.49 Family history of ischemic heart disease and other diseases of the circulatory system; Z86.16 Personal history of COVID-19; Z20.822 Contact with and (suspected) exposure to COVID-19
CPT/HCPCS: 36415; 36600; 71045; 80048; 80053; 80061; 80307; 81001; 82010; 82805; 82962; 83735; 83880; 83930; 84100; 84132; 84484; 84702; 85025; 85379; 85610; 85730; 87040; 87081; 87086; 87426; 93005; 96361; 96365; 96372; 96375; 99291; C9113; G0378; J1815; J1956; J2405; J3490; J7060

== ENCOUNTER 2021-12-04 09:00 | Inpatient (IN) | payer MEDICAID ==
[~2021-12-04] VITALS: Ht 154.9 cm; Wt 59.0 kg
[2021-12-04] VITALS (16 sets, daily range): BP systolic 117–152; BP diastolic 60–94
[~2021-12-04 09:00] MED LIST changes: -ASCO10003 PO; -IVER3TAB PO; -LEVO750T8 PO; -RIV20T PO
[2021-12-04 10:12] LABS: Eosinophils # (auto) 0 10 ^3/uL (0-0.8)
[2021-12-04 10:14] LABS: Basophils # (auto) 0.1 10 ^3/uL (0-0.2); Basophils % (auto) 0.6 % (0.0-2.0); Hematocrit 45.8 % (36.0-46.0); Hemoglobin 13.3 g/dL (12.2-16.2); Lymphocytes # (auto) 0.8 10 ^3/uL (0.4-5.4); Lymphocytes % (auto) 3.9 % (10.0-50.0); Mean Corpuscular Hemoglobin 25.4 pg (28.0-32.0); Mean Corpuscular Volume 87.4 fL (80.0-100.0); Monocytes # (auto) 0.8 10 ^3/uL (0-1.3); Monocytes % (auto) 4.3 % (0.0-12.0); Neutrophils # (auto) 17.9 10 ^3/uL (1.6-8.6); Neutrophils % (auto) 91.2 % (37.0-80.0); Nucleated Red Blood Cells % 0.2 %; Red Blood Cells 5.24 10^6/uL (4.0-5.20); White Blood Cell 19.6 10^3/uL (4.4-10.8)
[2021-12-04 10:21] LABS: Albumin 3.8 g/dL (3.4-5.0); Calcium 8.2 mg/dL (8.5-10.1); Potassium 4.7 mmol/L (3.5-5.1)
[2021-12-04 10:32] LABS: BUN/Creatinine Ratio 19.7; Bilirubin, Total 0.8 mg/dL (0.2-1.0); Total Protein 8.6 g/dL (6.4-8.2)
[2021-12-04] MEDS ORDERED: SODIUM CHLORIDE 0.9% 2,000 ML IV ONE (11:15)
[2021-12-04] MEDS ORDERED: SODIUM BICARBONATE 8.4 % INJ 50ML VIAL IV ONE (11:45)
[2021-12-04] MEDS ORDERED: INSULIN LANTUS (GLARGINE) 1 /0.01ml (100units/ml) SC ONE ×2 (11:45→23:30)
[2021-12-04] MEDS ORDERED: InsuLIN R (HUMAN) 100 UNITS in SODIUM CHL 0.9% 99 ML IV SCH ×2 (11:45→23:30)
[2021-12-04] MEDS ORDERED: DEXTROSE (50%) 50ML SYRG IV PRN ×2 (11:45→23:30)
[2021-12-04] MEDS: ACCU-CHEK COMFORT CURVE STRIP VI SCH ×8 (13:00→22:50)
[2021-12-04 13:53] LABS: Urine Bacteria NONE SEEN /hpf (None Seen); Urine Blood Negative /uL (Negative); Urine Budding Yeast OCCASIONAL /hpf (None Seen); Urine Hyaline Cast FEW /lpf (0 - 2); Urine Mucus FEW (None Seen); Urine Specific Gravity 1.017 (1.001-1.035); Urine WBC <1 /hpf (0 - 5)
[2021-12-04] MEDS ORDERED: SODIUM CHLORIDE 0.9% 3,000 ML IV ONE (14:15)
[2021-12-04] MEDS ORDERED: CLINDAMYCIN 600MG IV 50 ML IV ONE (14:15)
[2021-12-04] MEDS: SODIUM CHLORIDE 0.9% 1,000 ML IV SCH ×2 (14:15→23:00)
[2021-12-04] MEDS ORDERED: D5W/SOD CHLO 0.9% 1,000 ML IV PRN (14:15)
[2021-12-04] MEDS ORDERED: SOD CHL 0.9%/ KCL 20MEQ 1,000 ML IV PRN (14:15)
[2021-12-04] MEDS ORDERED: NITROGLYCERIN 0.4 MG SL TAB SL PRN (14:15)
[2021-12-04] MEDS ORDERED: MORPHINE SULFATE INJECTION 2 MG/ML SYRG IV PRN ×2 (14:15→15:30)
[2021-12-04] MEDS ORDERED: cefTRIAXone 1GM/50ML D5W 50 ML IV ONE (14:15)
[2021-12-04] MEDS ORDERED: LACTATED RINGER'S 2,000 ML IV ONE (14:15)
[2021-12-04] MEDS ORDERED: DOCUSATE SOD 100 MG CAP PO PRN (15:30)
[2021-12-04] MEDS ORDERED: SUCRALFATE 1 GM/10 ML ORAL SUSP PO ONE (15:30)
[2021-12-04] MEDS ORDERED: LORazepam 0.5 MG TAB PO PRN (15:30)
[2021-12-04] MEDS ORDERED: PANTOPRAZOLE 40 MG/10 ML VIAL INJ IV ONE (15:30)
[2021-12-04] MEDS ORDERED: HYDROcodone-ACET 5/325MG TAB PO ONE (15:30)
[2021-12-04] MEDS ORDERED: METOCLOPRAMIDE HCL 5MG/ml INJ 2ml VIAL IV PRN (15:30)
[2021-12-04] MEDS ORDERED: LACTULOSE 20Gm/30ML SOLN PO PRN (15:30)
[2021-12-04] MEDS ORDERED: IPRATROPIUM BROM 0.5 MG/2.5ML INH SOL NEB ONE (15:30)
[2021-12-04] MEDS ORDERED: ONDANSETRON HCL 4 MG/2 ML VIAL IV PRN (15:30)
[2021-12-04] MEDS ORDERED: hydrALAZINE HCL 20 MG/ML VL IV PRN (15:30)
[2021-12-04 16:05] LABS: Magnesium 2.6 mg/dL (1.6-2.6)
[2021-12-04 16:14] LABS: Phosphorus 8.5 mg/dL (2.5-4.90)
[2021-12-04] MEDS: InsuLIN R (HUMAN) 100 UNITS in SODIUM CHL 0.9% 99 ML IV SCH ×2 (18:21→19:30)
[2021-12-04] MEDS: SUCRALFATE 1 GM/10 ML ORAL SUSP PO SCH (21:27)
[2021-12-04] MEDS: CLINDAMYCIN 600MG IV 50 ML IV SCH (21:28)
[2021-12-04] MEDS ORDERED: ATORVASTATIN 20 MG TAB PO SCH (22:00)
[2021-12-04] MEDS ORDERED: IPRATROPIUM BROM 0.5 MG/2.5ML INH SOL NEB SCH (22:00)
[2021-12-04 23:34] LABS: BUN/Creatinine Ratio 35.7; Calcium 7.5 mg/dL (8.5-10.1); Magnesium 2.1 mg/dL (1.6-2.6)
[2021-12-04 23:40] LABS: Potassium 2.6 mmol/L (3.5-5.1)
[2021-12-05] VITALS (40 sets, daily range): BP systolic 102–152; BP diastolic 51–84
[2021-12-05] MEDS: POTASSIUM CHL 10MEQ/50ML 50 ML IV SCH ×11 (00:10→10:53)
[2021-12-05] MEDS: ACCU-CHEK COMFORT CURVE STRIP VI SCH ×11 (01:45→23:39)
[2021-12-05 04:13] LABS: Basophils # (auto) 0 10 ^3/uL (0-0.2); Basophils % (auto) 0.3 % (0.0-2.0); Eosinophils # (auto) 0 10 ^3/uL (0-0.8); Hematocrit 33.5 % (36.0-46.0); Hemoglobin 10.8 g/dL (12.2-16.2); Lymphocytes # (auto) 0.9 10 ^3/uL (0.4-5.4); Lymphocytes % (auto) 7.6 % (10.0-50.0); Mean Corpuscular Hemoglobin 25.4 pg (28.0-32.0); Mean Corpuscular Hgb Conc. 32.1 g/dL (32.0-36.0); Monocytes # (auto) 0.8 10 ^3/uL (0-1.3); Monocytes % (auto) 6.9 % (0.0-12.0); Neutrophils # (auto) 10.1 10 ^3/uL (1.6-8.6); Neutrophils % (auto) 85.2 % (37.0-80.0); Red Blood Cells 4.25 10^6/uL (4.0-5.20); Red Cell Distribution Width 19.5 % (11.8-14.3); White Blood Cell 11.8 10^3/uL (4.4-10.8)
[2021-12-05 04:17] LABS: Calcium 7.8 mg/dL (8.5-10.1)
[2021-12-05 04:25] LABS: Albumin 3.3 g/dL (3.4-5.0); BUN/Creatinine Ratio 19.8; Bilirubin, Total 0.6 mg/dL (0.2-1.0); CRP High Sensitivity 1.3 mg/dL (< 0.3); Magnesium 2.1 mg/dL (1.6-2.6); Phosphorus 1.7 mg/dL (2.5-4.90); Total Protein 7.2 g/dL (6.4-8.2)
[2021-12-05 04:46] LABS: INR 1.06 (0.9-1.15); Partial Thromboplastin Time 24.4 sec (23.6-33.0)
[2021-12-05 04:51] LABS: Potassium 2.9 mmol/L (3.5-5.1)
[2021-12-05] MEDS: SODIUM CHLORIDE 0.9% 1,000 ML IV SCH ×2 (05:15)
[2021-12-05] MEDS: CLINDAMYCIN 600MG IV 50 ML IV SCH ×3 (05:17→22:00)
[2021-12-05] MEDS: SUCRALFATE 1 GM/10 ML ORAL SUSP PO SCH ×5 (06:22→22:00)
[2021-12-05] MEDS ORDERED: POTASSIUM EFFERVESENT TAB 25 MEQ PO ONE (06:30)
[2021-12-05] MEDS ORDERED: cefTRIAXone 1GM/50ML D5W 50 ML IV SCH (09:00)
[2021-12-05] MEDS: THIAMINE HCL 100 MG TAB PO SCH ×2 (09:23→10:00)
[2021-12-05] MEDS: CYANOCOBALAMIN 500 MCG TAB PO SCH ×2 (09:23→10:00)
[2021-12-05] MEDS: PANTOPRAZOLE 40 MG/10 ML VIAL INJ IV SCH (09:24)
[2021-12-05] MEDS: ENOXAPARIN SOD 40 MG/0.4 ML SYRINGE SC SCH (09:24)
[2021-12-05] MEDS: CHOLECALCIFEROL (VITD3) 2,000 UNIT CAP/TAB PO SCH ×2 (09:24→10:00)
[2021-12-05] MEDS: INSULIN LANTUS (GLARGINE) 1 /0.01ml (100units/ml) SC SCH (09:29)
[2021-12-05] MEDS ORDERED: INSULIN LANTUS (GLARGINE) 1 /0.01ml (100units/ml) SC SCH (10:00)
[2021-12-05] MEDS ORDERED: D5W/SOD CHLO 0.9% 1,000 ML IV PRN (10:00)
[2021-12-05] MEDS ORDERED: ASPirin 81 mg TAB PO SCH (10:00)
[2021-12-05] MEDS ORDERED: D5W/SOD CHL 0.45% 1,000 ML IV SCH (10:45)
[2021-12-05] MEDS ORDERED: D5W/SOD CHLO 0.9% 1,000 ML IV SCH (10:45)
[2021-12-05 11:33] LABS: Potassium 3.2 mmol/L (3.5-5.1)
[2021-12-05 11:47] LABS: BUN/Creatinine Ratio 12.3; Calcium 7.8 mg/dL (8.5-10.1)
[2021-12-05] MEDS ORDERED: DEXTROSE (50%) 50ML SYRG IV PRN (12:30)
[2021-12-05] MEDS: InsuLIN REG 1unit/0.01ml Soln (100units/ml) SC SCH ×2 (17:19→23:39)
[2021-12-06] VITALS (10 sets, daily range): BP systolic 116–142; BP diastolic 67–84
[2021-12-06] MEDS: ACETAMINOPHEN 500 MG TAB PO PRN ×2 (02:17→17:30)
[2021-12-06] MEDS: CLINDAMYCIN 600MG IV 50 ML IV SCH ×2 (06:00→14:00)
[2021-12-06] MEDS: ACCU-CHEK COMFORT CURVE STRIP VI SCH ×3 (06:00→17:30)
[2021-12-06] MEDS: InsuLIN REG 1unit/0.01ml Soln (100units/ml) SC SCH ×3 (06:12→17:36)
[2021-12-06] MEDS: SUCRALFATE 1 GM/10 ML ORAL SUSP PO SCH ×3 (06:23→17:30)
[2021-12-06 09:03] LABS: Basophils # (auto) 0.1 10 ^3/uL (0-0.2); Eosinophils # (auto) 0.1 10 ^3/uL (0-0.8); Hemoglobin 9.4 g/dL (12.2-16.2); Monocytes # (auto) 0.6 10 ^3/uL (0-1.3); Neutrophils # (auto) 4.3 10 ^3/uL (1.6-8.6); Neutrophils % (auto) 58.5 % (37.0-80.0); Nucleated Red Blood Cells % 0.1 %; White Blood Cell 7.3 10^3/uL (4.4-10.8)
[2021-12-06 09:05] LABS: Basophils % (auto) 1.5 % (0.0-2.0); Eosinophils % (auto) 0.9 % (0.0-7.0); Hematocrit 28.8 % (36.0-46.0); Lymphocytes # (auto) 2.3 10 ^3/uL (0.4-5.4); Lymphocytes % (auto) 31.4 % (10.0-50.0); Mean Corpuscular Hemoglobin 25.4 pg (28.0-32.0); Mean Corpuscular Hgb Conc. 32.5 g/dL (32.0-36.0); Mean Corpuscular Volume 78.3 fL (80.0-100.0); Monocytes % (auto) 7.7 % (0.0-12.0); Red Blood Cells 3.68 10^6/uL (4.0-5.20); Red Cell Distribution Width 19.7 % (11.8-14.3)
[2021-12-06 09:15] LABS: Calcium 7.8 mg/dL (8.5-10.1)
[2021-12-06 09:17] LABS: BUN/Creatinine Ratio 8.9
[2021-12-06] MEDS: PANTOPRAZOLE 40 MG/10 ML VIAL INJ IV SCH (09:40)
[2021-12-06] MEDS: THIAMINE HCL 100 MG TAB PO SCH (09:40)
[2021-12-06] MEDS: CHOLECALCIFEROL (VITD3) 2,000 UNIT CAP/TAB PO SCH (09:41)
[2021-12-06] MEDS: CYANOCOBALAMIN 500 MCG TAB PO SCH (09:41)
[2021-12-06] MEDS: ENOXAPARIN SOD 40 MG/0.4 ML SYRINGE SC SCH (09:43)
[2021-12-06] MEDS: INSULIN LANTUS (GLARGINE) 1 /0.01ml (100units/ml) SC SCH (09:47)
[2021-12-06 09:49] LABS: Potassium 2.6 mmol/L (3.5-5.1)
[2021-12-06] MEDS ORDERED: CLIN300C8 PO (09:59)
[2021-12-06] MEDS ORDERED: POTASSIUM EFFERVESENT TAB 25 MEQ GT ONE (10:00)
[2021-12-06 11:08] LABS: INR 1.01 (0.9-1.15); Partial Thromboplastin Time 25.8 sec (23.6-33.0)
[2021-12-06] MEDS: POTASSIUM CHL 10MEQ/50ML 50 ML IV SCH ×2 (11:26→13:15)
[2021-12-06] MEDS ORDERED: POTASSIUM CHL IV SCH (15:00)
[2021-12-06] MEDS ORDERED: LIDOCAINE 1% IV SCH (15:00)
[2021-12-06] MEDS ORDERED: POTASSIUM CHL 10MEQ/50ML 50 ML IV SCH (16:15)
[2021-12-06] MEDS ORDERED: POTASSIUM EFFERVESENT TAB 25 MEQ PO ONE (17:00)
[2021-12-06] MEDS ORDERED: CLINDAMYCIN HCL 150 MG CAP PO ONE (17:00)
== END 2021-12-06 18:27 | disposition home or self-care (01) | DRG 420 ==
LOC: ER 09:00 → EDBD 09:00 → TELE 14:08 → DOU IN ICU 17:48 → TELE-CENTR 12-06 01:40
PROVIDERS: ADMIT Hospitalist; ATTEND Internal Medicine Pulmonary Disease
DX: E10.10 Type 1 diabetes mellitus with ketoacidosis without coma (principal); E10.40 Type 1 diabetes mellitus with diabetic neuropathy, unspecified; E88.09 Other disorders of plasma-protein metabolism, not elsewhere classified; K21.00 Gastro-esophageal reflux disease with esophagitis, without bleeding; K52.9 Noninfective gastroenteritis and colitis, unspecified; N39.0 Urinary tract infection, site not specified; Z20.822 Contact with and (suspected) exposure to COVID-19; K31.9 Disease of stomach and duodenum, unspecified; E55.9 Vitamin D deficiency, unspecified; E87.6 Hypokalemia; L03.116 Cellulitis of left lower limb; Z83.3 Family history of diabetes mellitus; Z86.16 Personal history of COVID-19; Z91.19 Patient's noncompliance with other medical treatment and regimen; Z82.49 Family history of ischemic heart disease and other diseases of the circulatory system; Z87.01 Personal history of pneumonia (recurrent); Z91.81 History of falling; Z88.1 Allergy status to other antibiotic agents
CPT/HCPCS: 36415; 36600; 71045; 80048; 80053; 80061; 80307; 81001; 82550; 82728; 82805; 82962; 83036; 83690; 83735; 83880; 84100; 84443; 84484; 85025; 85379; 85610; 85652; 85730; 86141; 87040; 87081; 87086; 93005; 96365; 96372; 96375; 99291; C9113; G0378; J0696; J1815; J3490